=== PATIENT | female | born 1950 | race Caucasian/White ===

== ENCOUNTER → 2020-04-26 09:58 | Outpatient (BNVA) | payer MEDICARE, MEDICAID, SELFPAY | PROVIDERS: PCP Internal Medicine; Referring Provider Internal Medicine; Visit Provider Obstetrics & Gynecology | DX: Z76.89 Persons encountering health services in other specified circumstances (principal) ==

== ENCOUNTER 2020-04-28 10:47 | Outpatient (REF) | payer MEDICARE, MEDICAID, SELFPAY ==
--- NOTE | 2020-04-28 10:51 | MM_ITS ---
EXAMINATION: BONE DENSITOMETRY CLINICAL INDICATION: Other specified personal risk factors, not elsewhere classified. COMPARISON: None (current study represents initial baseline exam). TECHNIQUE: Using a [employer] DXA System (software version: 13.1) manufactured by [employer], dual-energy x-ray absorptiometry was performed of the lumbar spine and left hip. The images are of good technical quality. Summary results are attached. FINDINGS: AP SPINE L1-L4: BMD 0.993 g/cm2, Z-score -0.8, T-score -1.6, osteopenia. LEFT FEMUR, NECK: BMD 1.057 g/cm2, Z-score 1.2, T-score 0.1, normal. LEFT FEMUR, TOTAL: BMD 1.201 g/cm2, Z-score 2.3, T-score 1.5, normal. IDENTIFIED RISK FACTORS: Osteoporosis. Height loss. Menopause. Hysterectomy. Bilateral oophorectomy. HISTORY OF FRACTURE: None listed. MEDICATIONS: Vitamin D. MM/XR DEXA axial skeleton IMPRESSION: 1. DIAGNOSIS: Osteopenia based on the lowest T-score value of -1.6 in the lumbar spine applying World Health Organization criteria. 2. 10-YEAR FRACTURE RISK PREDICTION, FRAX: Major osteoporotic fracture (clinical spine, forearm, hip or shoulder) 3.3%. Hip fracture 0.1%. 3. Treatment Recommendations: NOF guidelines recommend consideration for treatment in postmenopausal women and men age 50 and older presenting with the following: -A hip or vertebral (clinical or morphometric) fracture. -T-score less than or equal to -2.5 at the femoral neck or spine after appropriate evaluation to exclude secondary causes. -Low bone mass at the hip or spine and a 10-year fracture probability by FRAX of greater than or equal to 3% for hip fracture or greater than or equal to 20% for major osteoporotic fracture based on the [place] adapted WHO algorithm. 4. Other Recommendations: All treatment decisions require clinical judgment and consideration of individual patient factors, including patient preferences, comorbidities, previous drug use, risk factors not captured in the FRAX model (e.g. frailty, falls, vitamin D deficiency, increased bone turnover, interval significant decline in bone density) and possible under or overestimation of fracture risk by FRAX. Additional medical evaluation for secondary cause of low bone mineral density may be appropriate. FUTURE SCAN RECOMMENDATION: People with diagnosed cases of osteoporosis or at high risk for fracture should have regular bone mineral density tests. For patients eligible for Medicare, routine testing is allowed once every 2 years. The testing frequency can be increased to one year for patients who have rapidly progressing disease, those who are receiving or discontinuing medical therapy to restore bone mass, or have additional risk factors.
== END 2020-04-28 10:48 | disposition home or self-care (01) ==
LOC: HO.MAMMO 10:47
PROVIDERS: PCP Internal Medicine; Visit Provider Obstetrics & Gynecology
DX: Z13.820 Encounter for screening for osteoporosis (principal); Z78.0 Asymptomatic menopausal state; R29.890 Loss of height; Z90.710 Acquired absence of both cervix and uterus; Z90.722 Acquired absence of ovaries, bilateral; Z79.899 Other long term (current) drug therapy
CPT/HCPCS: 77080

== ENCOUNTER → 2020-05-10 10:35 | Outpatient (BNVA) | payer MEDICARE, MEDICAID, SELFPAY | PROVIDERS: Visit Provider Obstetrics & Gynecology | DX: M85.80 Other specified disorders of bone density and structure, unspecified site (principal) | CPT/HCPCS: 99212; Q3014 ==

== ENCOUNTER 2020-09-04 09:52 | Outpatient (REF) | payer MEDICARE, MEDICAID, SELFPAY ==
[2020-09-04 11:14] LABS: MANUAL DIFF FLAG NO
[2020-09-04 11:43] LABS: Basophils Percent Auto 0.5 % (0-2); Eosinophils Absolute Auto 0.2 X10*3/uL (0.0-0.4); Eosinophils Percent Auto 2.9 % (0-4); Hematocrit 39.5 % (37-47); Hemoglobin 12.8 g/dl (12.0-16.0); Imm Gran Abs Auto 0.01 X10*3/uL (0.00-0.03); Imm Gran Pct Auto 0.2 % (0.0-0.4); Lymphocytes Absolute Auto 2.6 X10*3/uL (1.2-4.9); Lymphocytes Percent Auto 45.4 % (20-40); Mean Corpuscular HGB Conc 32.4 g/dl (31.0-35.0); Mean Corpuscular Hemoglobin 28.3 pg (27.0-33.0); Mean Corpuscular Volume 87.4 fL (80-98); Mean Platelet Volume 9.1 fL (9.4-12.3); Monocytes Absolute Auto 0.4 X10*3/uL (0.1-1.2); Monocytes Percent Auto 6.4 % (2-11); Neutrophils Absolute Auto 2.6 X10*3/uL (2.0-8.3); Neutrophils Percent Auto 44.6 % (45-73); Platelet Count 340 X10*3/uL (160-400); Red Blood Count 4.52 X10*6/uL (4.20-5.50); Red Cell Distribution Width 13.9 % (11.0-16.0); White Blood Count 5.8 X10*3/uL (4.8-10.8)
[2020-09-04 11:45] LABS: Estimated Average Glucose 126 mg/dL
[2020-09-04 12:18] LABS: Alanine Aminotransferase 10 U/L (0-31); Alkaline Phosphatase 77 U/L (39-117); Anion Gap 11 (12-20); Aspartate Amino Transferase 13 U/L (5-31); Bilirubin Total 0.6 mg/dL (0.0-1.0); Blood Urea Nitrogen 17 mg/dL (9-16); Calcium 9.1 mg/dL (8.4-10.2); Carbon Dioxide 32 mmol/L (22-29); Chloride 103 mmol/L (96-108); Cholesterol 191 mg/dL; Estimated Glomerular Filt Rate > 60; Glucose Fasting 66 mg/dL (60-99); HDL Cholesterol 57 mg/dL; LDL Cholesterol Calculated 109 mg/dl; Potassium 4.3 mmol/L (3.3-5.1); Sodium 142 mmol/L (135-145); Triglycerides 128 mg/dL
[2020-09-04 12:34] LABS: Creatinine Urine 85.85 mg/dL; Microalbum/Creatinine Ratio Ur 13.9 ug/mg cr
== END 2020-09-04 09:53 | disposition home or self-care (01) ==
LOC: HO.HMGCLDS 09:52
PROVIDERS: PCP Internal Medicine; Visit Provider Internal Medicine
DX: E78.5 Hyperlipidemia, unspecified (principal); E11.9 Type 2 diabetes mellitus without complications
CPT/HCPCS: 36415; 80053; 80061; 82043; 83036; 85025

== ENCOUNTER 2021-03-13 10:21 | Outpatient (REF) | payer MEDICARE, MEDICAID, SELFPAY ==
[2021-03-13 12:40] LABS: Alanine Aminotransferase 13 U/L (0-31); Albumin Level 3.9 g/dL (3.5-5.0); Alkaline Phosphatase 83 U/L (39-117); Anion Gap 12 (12-20); Aspartate Amino Transferase 13 U/L (5-31); Bilirubin Total 0.4 mg/dL (0.0-1.0); Blood Urea Nitrogen 15 mg/dL (9-16); Calcium 9.6 mg/dL (8.4-10.2); Carbon Dioxide 29 mmol/L (22-29); Chloride 104 mmol/L (96-108); Estimated Glomerular Filt Rate > 60; Glucose Fasting 104 mg/dL (60-99); Potassium 4.6 mmol/L (3.3-5.1); Sodium 140 mmol/L (135-145); Total Protein 6.9 g/dL (6.5-8.0)
[2021-03-13 13:25] LABS: Estimated Average Glucose 137 mg/dL; Hemoglobin A1c % 6.4 %
[2021-03-13 14:50] LABS: Creatinine Urine 72.16 mg/dL; Microalbum/Creatinine Ratio Ur 6.9 ug/mg cr
== END 2021-03-13 10:22 | disposition home or self-care (01) ==
LOC: HO.HMGCLDS 10:21
PROVIDERS: PCP Internal Medicine; Visit Provider Internal Medicine
DX: E11.9 Type 2 diabetes mellitus without complications (principal); E66.9 Obesity, unspecified; E78.5 Hyperlipidemia, unspecified
CPT/HCPCS: 36415; 80053; 82043; 83036

== ENCOUNTER 2021-04-05 11:00 | Outpatient (RCR) | payer MEDICARE, MEDICAID, SELFPAY ==
--- NOTE | 2021-02-01 10:04 | MHC.PT.EP ---
[facility] [place] [facility] [place] Office [address] Danie Guzman [address] [phone] F: [phone] F: [phone] F: [phone] F: [phone] Physical Therapy Plan of Care Date of Evaluation: Date of Surgery: Diagnosis: B LE weakness. Assessment: Pt is a 70 y/o female referred to PT for eval and treat of B LE weakness who presents with B LE weakness and gait abnormality resulting in decreased tolerance for ambulating and standing for duration, performing squatting activities and HH chores, as well as negotiating stairs and curbs secondary to decreased B LE strength, gait abnormality, L > R knee pain, increased body weight, and sedentary lifestyle. Pt is deemed an appropriate candidate to receive skilled PT in order to address her physical limitations to improve her functional ability. Frequency and Duration: The patient will be seen 2 x / wk x 5 wks. Short Term Goals: Initiate HEP. Retirement Goals: I with HEP. improve B knee extension MMT to : 4+/5. 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 Pt will b able to walk 2 blocks with at most a little bit of difficulty; initial quite a bit of difficulty. Treatment Plan: Modalities to reduce pain, spasms and effusion. Manual therapy to restore motion and function. Therapeutic exercise to improve strength and flexibility. Neuromuscular re-education for posture and balance. Therapeutic activities to return to functional activities of daily living. Electronically signed by: Kanu Harmon PT. Please sign and return to therapist. Thank you for your referral.
--- NOTE | 2021-04-05 12:07 | MHC.PT.DC ---
[facility] [place] [facility] [place] Office [place] Office [address] Danie Guzman [address] [phone] F: [phone] F: [phone] F: [phone] F: [phone] Physical Therapy Discharge Report Diagnosis: B LE weakness. Date of Surgery: Date of Evaluation: 01/30/21 Date of Discharge: Treatments to Date: 9 Cancellations to Date: No Shows to Date: 1 Discharge Status: Discharge Summary: 04/05: Pt was highly motivated to participate in her therapy today - pt required minimal cues to perform her ther/ex. this suggest that she had bee following her HEP. By the end of her POC, pt has managed to achieve few of her goals however, pt reports that she is functional with her day to day activities. Pt acknowledges that today is her last visit and is in agreement with DC. states that she will continue participating in her HEP once DC. 04/03: pt challenged with standing activities - pt responded with appropriate fatigue and minimal knee pain. pt edu about how to properly climb down stairs. pt acknowledged that next visit is her last and reports that she is in agreement with DC. reports that she understand her HEP and states that she will perform exercise at home. cont POC for next visit and DC with plans for her to follow HEP once DC. Electronically signed by: Kanu Harmon PT. Please sign and return to therapist. Thank you for your referral.
--- NOTE | 2021-04-05 12:16 | MHC.PT.DC ---
[facility] [place] [facility] [place] Office [place] Office [address] Danie Guzman [address] [phone] F: [phone] F: [phone] F: [phone] F: [phone] Physical Therapy Discharge Report Diagnosis: B LE weakness. Date of Surgery: Date of Evaluation: 01/30/21 Date of Discharge: 04/05/21 Treatments to Date: 10 Cancellations to Date: No Shows to Date: 1 Discharge Status: Improved Function Independent with HEP Discharge Summary: Pt was highly motivated to participate in her therapy today - pt required minimal cues to perform her ther/ex. this suggest that she had bee following her HEP. By the end of her POC, pt has managed to achieve few of her goals however, pt reports that she is functional with her day to day activities. Pt acknowledges that today is her last visit and is in agreement with DC. states that she will continue participating in her HEP once DC. Electronically signed by: Kanu Harmon PT. Please sign and return to therapist. Thank you for your referral.
== END 2021-04-05 12:16 | disposition home or self-care (01) ==
LOC: HO.PTCHIC 11:00
PROVIDERS: PCP Internal Medicine; Visit Provider Internal Medicine
DX: M19.90 Unspecified osteoarthritis, unspecified site (principal)
CPT/HCPCS: 97110; 97161; 97530

== ENCOUNTER 2021-05-01 14:48 | Outpatient (REF) | payer MEDICARE, MEDICAID, SELFPAY ==
[2021-05-02 13:20] LABS: BV Int Neg Control Negative (Negative); BV Int Pos Control Positive (Positive)
== END 2021-05-01 14:49 | disposition home or self-care (01) ==
LOC: HO.LAB 14:48
PROVIDERS: Visit Provider Advanced Practice Midwife
DX: Z01.419 Encounter for gynecological examination (general) (routine) without abnormal findings (principal); L29.2 Pruritus vulvae
CPT/HCPCS: 87480; 87510; 87660

== ENCOUNTER 2021-11-14 10:31 | Outpatient (REF) | payer MEDICARE, MEDICAID, SELFPAY ==
[2021-11-14 11:50] LABS: Hematocrit 39.4 % (37.0-47.0); Hemoglobin 12.4 g/dl (12.0-16.0); Mean Corpuscular HGB Conc 31.5 g/dl (31.0-35.0); Mean Corpuscular Hemoglobin 27.2 pg (27.0-33.0); Mean Corpuscular Volume 86.4 fL (80.0-98.0); Mean Platelet Volume 8.9 fL (9.4-12.3); Platelet Count 312 X10*3/uL (160-400); Red Blood Count 4.56 X10*6/uL (4.20-5.50); Red Cell Distribution Width 14.9 % (11.0-16.0); White Blood Count 5.6 X10*3/uL (4.8-10.8)
[2021-11-14 11:58] LABS: Estimated Average Glucose 146 mg/dL; Hemoglobin A1c % 6.7 %
[2021-11-14 12:30] LABS: Alanine Aminotransferase 11 U/L (0-31); Albumin Level 3.8 g/dL (3.5-5.0); Alkaline Phosphatase 90 U/L (39-117); Anion Gap 11 (12-20); Aspartate Amino Transferase 12 U/L (5-31); Bilirubin Total 0.4 mg/dL (0.0-1.0); Blood Urea Nitrogen 16 mg/dL (9-16); Calcium 9.7 mg/dL (8.4-10.2); Carbon Dioxide 32 mmol/L (22-29); Chloride 102 mmol/L (96-108); Cholesterol 208 mg/dL; Estimated Glomerular Filt Rate > 60; Glucose Fasting 123 mg/dL (60-99); HDL Cholesterol 57 mg/dL; LDL Cholesterol Calculated 123 mg/dl; Potassium 4.5 mmol/L (3.3-5.1); Sodium 140 mmol/L (135-145); Total Protein 7.2 g/dL (6.5-8.0); Triglycerides 143 mg/dL
[2021-11-14 14:25] LABS: Creatinine Urine 18.43 mg/dL; Microalbumin Urine < 5.0 mg/L
== END 2021-11-14 10:32 | disposition home or self-care (01) ==
LOC: HO.HMGCLDS 10:31
PROVIDERS: PCP Internal Medicine; Visit Provider Internal Medicine
DX: E11.9 Type 2 diabetes mellitus without complications (principal); E78.5 Hyperlipidemia, unspecified; I10 Essential (primary) hypertension
CPT/HCPCS: 36415; 80053; 80061; 82043; 83036; 85027

== ENCOUNTER 2022-03-01 08:29 | Day surgery (SDC) | payer OTHER, SELFPAY ==
[2022-03-01] VITALS (8 sets, daily range): BP systolic 123–186; BP diastolic 56–86; PULSE 87–102; RESP 17–20; TEMP 36.2–36.3; O2SAT 92–100; BMI 44.4
[2022-03-01 09:08] LABS: Glucose, Whole Blood 101 mg/dL (60-115)
--- NOTE | 2022-03-01 09:11 | P.CONAN_ITS ---
HPI - Anesthesia Eval Consult details Narrative: 71 F for EGD HTN , DM, Asthma, MARCELLUS on CPAP Fall 1 week ago , no LOC , saw her orthopedics , was told she is just sore no fractures . Discussed with Dr Pedraza , he would like to proceed . [facility] Active Problems Active Problems: All Active Problems (Updated 11/19/21 @ 13:14 by Josefa Giordano MD) Cataract (Acute) Acute bronchitis (Acute) HTN (hypertension) (Acute) Vulvar itching (Acute) Encounter for annual routine gynecological examination (Acute) Lower extremity weakness (Acute) Annual physical exam (Acute) Osteopenia (Acute) Mammogram normal (Acute) Obesity (Acute) Diabetes (Acute) Hyperlipidemia (Acute) Past Medical History Medical History Annual physical exam Cataract Diabetes Diabetic eye exam Endometrial cancer Gastritis HTN (hypertension) Hyperlipidemia Lower extremity weakness Mammogram normal Obesity Osteoarthritis Family History Family History Father No problems noted. Mother No problems noted. Mother No problems noted. Sister Breast cancer Daughter No problems noted. Daughter No problems noted. Family history of problems with anesthesia: No Surgical History Surgical History H/O colonoscopy History of carpal tunnel surgery History of section History of shoulder surgery History of total abdominal hysterectomy and bilateral salpingo-oophorectomy History of tubal ligation Hx of cholecystectomy S/P LIZET-BSO History of Problems with Anesthesia: No Social History Social History Housing: House Alcohol intake: never Patient Tobacco Use Status: Former Tobacco user Quit Date: many decades ago e-Cigarette/Vaping Use: Never Used Second Hand Smoke Exposure: No Use of substances other than those prescribed or required for medical reasons: No Are you DNR?: No Advance Directives: No Advance Directives Information Provided: Yes service: No Current occupational status: retired Current occupational exposures/hazards: No Sexual orientation: Straight/Heterosexual Gender identity: Female Cognitive needs: No Hearing needs: No Vision needs: No Meds Allergies Allergy/AdvReac Type Severity Reaction Status Date / Time almond Allergy Unknown itchy Verified 11/19/21 12:48 throat and eyes SOB apple Allergy Unknown itchy Verified 11/19/21 12:48 throat eyes Active Medications: Current Medications Lactated Ringer's (Lr) 1,000 mls @ 100 mls/hr IVCONT .Q10H [facility] Home Medications Medication Instructions Recorded Confirmed Last Taken Type acetaminophen 500 mg tablet mg PO 04/18/20 11/19/21 Unknown History estradiol 0.01% (0.1 mg/gram) 1 g vaginal 04/18/20 11/19/21 Unknown History vaginal cream gabapentin 100 mg capsule 200 mg PO BID 06/05/21 11/19/21 Unknown History Exam Exam Date and Time: March 01, 2022 0911 Height,Weight and Vital Signs: Height 4 ft 11 in Weight 99.79 kg Last Vital Signs Temp 97.4 F 03/01/22 09:04 Pulse 97 03/01/22 09:04 Resp 18 03/01/22 09:04 BP 186/86 H 03/01/22 09:04 Pulse Ox 95 03/01/22 09:04 O2 Del Method 03/01/22 09:04 Pertinent Lab Results Pertinent Lab Results: Laboratory Tests 03/01/22 09:02 POC Glucose 101 Airway Mallampati Class: III TM Dist: <=3cm Neck ROM: Full Denture: Upper Loose/Missing/Broken Teeth: Yes (poor dentition ) Heart: S1,S2 Lungs: distant breath sounds b/l Assessment and Plan Assessment Anesthesia Assessment: Anesthesia Plan Discussed and Chart Reviewed Final Anesthetic Review Family History of Problems with Anesthesia: No History of Problems with Anesthesia: No NPO: Yes ASA Class: III Final Preanesthetic Review: Meds/Allgs Chart Reviewed, Consent Obtained/Reviewed and Anes Risks/Benef Reviewed Patient Risk: High Procedure Risk: Intermediate Anesthetic Plan Anesthetic Plan: MAC: (GA backup ) Disposition: Standard PACU
[2022-03-01] MEDS: Lactated Ringers 1,000 ML 100 ML IVCONT (09:23)
--- NOTE | 2022-03-01 10:19 | PM.OP ---
Brief Operative Note Date of Service: 03/01/22 Pre-op diagnosis: GERD, History of Silva's Post-op diagnosis: other (Hiatal Hernia, Same) Procedure: EGD with biopsies Surgeon: Jacob Pedraza Anesthesia: GETA and MAC Was an Supervisor Chassis Assembly used for this Procedure?: No Estimated blood loss (mL): 2.0 Pathology: other (A. EG Junction at 35cm) Condition: stable Disposition: PACU
--- NOTE | 2022-03-01 21:46 | OP_ITS ---
SURGEON: Jacob Pedraza MD INDICATIONS: The patient presents for evaluation of gastroesophageal reflux and history of Silva's esophagus. Full consent has been obtained from her for this, including risks of bleeding and perforation. PREOPERATIVE DIAGNOSIS: POSTOPERATIVE DIAGNOSIS: PROCEDURE PERFORMED: Esophagogastroduodenoscopy with biopsies. ESTIMATED BLOOD LOSS: COMPLICATIONS: ANESTHESIA: Monitored anesthesia care with conversion to general anesthesia with endotracheal intubation. ASSISTANTS: SPECIMENS: PREOPERATIVE DIAGNOSES: 1. Gastroesophageal reflux. 2. History of Silva's esophagus. POSTOPERATIVE DIAGNOSES: 1. Gastroesophageal reflux. 2. History of Silva's esophagus. 3. Hiatal hernia. DESCRIPTION OF PROCEDURE: The patient was placed in the left lateral decubitus position. The Olympus video gastroscope was passed into the posterior oropharynx and upper esophagus under direct vision. The scope was passed slowly to the distal esophagus. The gastroesophageal junction appeared at 35 cm. There was some minimal irregularity, but no erosions and no ulceration. There was no mass. The scope entered the stomach. There was a small hiatal hernia. The scope was advanced to the pylorus. The duodenum was cannulated to the descending portion. The duodenum including the bulb appeared normal without mass or ulceration. The scope was withdrawn back to the stomach where the gastric antrum and body appeared normal with good peristalsis. The scope was retroflexed visualizing the proximal stomach carefully, which appeared normal, without any sign of mass or ulceration. The scope was straightened out and withdrawn back to the esophagus. Biopsies were obtained at the EG junction at 35 cm. Again, there was no sign of any esophagitis nor any definitive evidence of Silva's mucosa. Proximal to this, the esophageal mucosa appeared normal. The scope was withdrawn from the patient. Of note, at that point, the patient did require intubation to maintain respiratory support given her underlying history of sleep apnea. She remained otherwise stable until extubation and return to the recovery area. IMPRESSION: 1. Hiatal hernia. 2. Gastroesophageal reflux. 3. History of Silva's esophagus. PLAN: The results of biopsies will be checked. She will continue her current regimen of omeprazole. She was advised not to use any aspirin or NSAIDs for 1 week. This has all been discussed with her daughter, including the issue of her need for intubation at the end of the procedure. MD EKTA Parrish/AGNIESZKA / [phone] WANDY
== END 2022-03-01 12:25 | disposition home or self-care (01) ==
PROVIDERS: PCP Internal Medicine; Visit Provider Internal Medicine
PROC: 0DJ08ZZ Inspection of Upper Intestinal Tract, Via Natural or Artificial Opening Endoscopic (ICD-10-PCS; CPT 43235; principal; 2022-03-01 09:30)
DX: K21.9 Gastro-esophageal reflux disease without esophagitis (principal); K44.9 Diaphragmatic hernia without obstruction or gangrene; Z87.19 Personal history of other diseases of the digestive system; I10 Essential (primary) hypertension; E78.5 Hyperlipidemia, unspecified; G47.33 Obstructive sleep apnea (adult) (pediatric); E66.9 Obesity, unspecified; Z68.42 Body mass index [BMI] 45.0-49.9, adult; M79.7 Fibromyalgia; E11.9 Type 2 diabetes mellitus without complications; Z79.4 Long term (current) use of insulin; Z79.899 Other long term (current) drug therapy; Z99.89 Dependence on other enabling machines and devices; Z90.710 Acquired absence of both cervix and uterus; Z90.49 Acquired absence of other specified parts of digestive tract; Z87.891 Personal history of nicotine dependence
CPT/HCPCS: 43239; 82947; 88305; J2250; J3010

== ENCOUNTER → 2022-03-27 08:58 | Outpatient (REF) | payer OTHER, SELFPAY | LOC: HO.SL 08:58 | PROVIDERS: PCP Internal Medicine; Visit Provider Internal Medicine | DX: G47.33 Obstructive sleep apnea (adult) (pediatric) (principal) | CPT/HCPCS: 95806 ==

== ENCOUNTER 2022-06-27 08:51 | Outpatient (REF) | payer OTHER, SELFPAY ==
[2022-06-28 12:36] LABS: BV Int Neg Control Negative (Negative); BV Int Pos Control Positive (Positive)
== END 2022-06-27 08:52 | disposition home or self-care (01) ==
LOC: HO.LNP 08:51
PROVIDERS: PCP Internal Medicine; Visit Provider Advanced Practice Midwife
DX: N89.8 Other specified noninflammatory disorders of vagina (principal)
CPT/HCPCS: 87480; 87510; 87660

== ENCOUNTER 2022-08-30 11:36 | Outpatient (REF) | payer OTHER, SELFPAY ==
[2022-08-30 14:25] LABS: Alanine Aminotransferase 18 U/L (0-31); Albumin Level 3.7 g/dL (3.5-5.0); Alkaline Phosphatase 88 U/L (39-117); Anion Gap 12 (12-20); Aspartate Amino Transferase 18 U/L (5-31); Bilirubin Total 0.5 mg/dL (0.0-1.0); Blood Urea Nitrogen 16 mg/dL (9-16); Calcium 9.4 mg/dL (8.4-10.2); Carbon Dioxide 35 mmol/L (22-29); Chloride 100 mmol/L (96-108); Cholesterol 180 mg/dL; Estimated Glomerular Filt Rate > 60; Glucose Fasting 89 mg/dL (60-99); HDL Cholesterol 60 mg/dL; LDL Cholesterol Calculated 96 mg/dl; Potassium 4.7 mmol/L (3.3-5.1); Sodium 142 mmol/L (135-145); Total Protein 6.8 g/dL (6.5-8.0); Triglycerides 122 mg/dL
[2022-08-30 14:42] LABS: TSH reflex Free T4 2.13 uIU/mL (0.32-4.0)
[2022-08-30 16:04] LABS: Estimated Average Glucose 146 mg/dL; Hemoglobin A1c % 6.7 %
[2022-08-30 16:06] LABS: Creatinine Urine 89.97 mg/dL; Microalbum/Creatinine Ratio Ur 8.8 ug/mg cr
== END 2022-08-30 11:37 | disposition home or self-care (01) ==
LOC: HO.HMGCLDS 11:36
PROVIDERS: PCP Internal Medicine; Visit Provider Internal Medicine
DX: E11.9 Type 2 diabetes mellitus without complications (principal); I10 Essential (primary) hypertension; E78.5 Hyperlipidemia, unspecified
CPT/HCPCS: 36415; 80053; 80061; 82043; 83036; 84443

== ENCOUNTER 2022-12-11 10:23 | Outpatient (REF) | payer OTHER, SELFPAY ==
[2022-12-11 11:11] LABS: MANUAL DIFF FLAG NO
[2022-12-11 11:29] LABS: Basophils Absolute Auto 0.1 X10*3/uL (0.0-0.2); Basophils Percent Auto 0.9 % (0-2); Eosinophils Absolute Auto 0.1 X10*3/uL (0.0-0.4); Eosinophils Percent Auto 2.1 % (0-4); Hematocrit 41.1 % (37.0-47.0); Hemoglobin 13.4 g/dl (12.0-16.0); Imm Gran Abs Auto 0.01 X10*3/uL (0.00-0.03); Imm Gran Pct Auto 0.2 % (0.0-0.4); Lymphocytes Absolute Auto 2.2 X10*3/uL (1.2-4.9); Lymphocytes Percent Auto 39.5 % (20-40); Mean Corpuscular HGB Conc 32.6 g/dl (31.0-35.0); Mean Corpuscular Hemoglobin 27.5 pg (27.0-33.0); Mean Corpuscular Volume 84.4 fL (80.0-98.0); Mean Platelet Volume 9.1 fL (9.4-12.3); Monocytes Absolute Auto 0.3 X10*3/uL (0.1-1.2); Monocytes Percent Auto 4.8 % (2-11); Neutrophils Absolute Auto 2.9 x10*3/uL (2.0-8.3); Neutrophils Percent Auto 52.5 % (45-73); Platelet Count 272 X10*3/uL (160-400); Red Blood Count 4.87 X10*6/uL (4.20-5.50); Red Cell Distribution Width 14.5 % (11.0-16.0); White Blood Count 5.6 X10*3/uL (4.8-10.8)
[2022-12-11 11:48] LABS: Estimated Average Glucose 140 mg/dL; Hemoglobin A1c % 6.5 %
[2022-12-11 11:52] LABS: Alanine Aminotransferase 15 U/L (0-31); Albumin Level 3.8 g/dL (3.5-5.0); Alkaline Phosphatase 78 U/L (39-117); Anion Gap 12 (12-20); Aspartate Amino Transferase 15 U/L (5-31); Bilirubin Total 0.3 mg/dL (0.0-1.0); Blood Urea Nitrogen 22 mg/dL (9-16); Calcium 9.5 mg/dL (8.4-10.2); Carbon Dioxide 28 mmol/L (22-29); Chloride 104 mmol/L (96-108); Cholesterol 162 mg/dL; Estimated Glomerular Filt Rate > 60; Glucose Fasting 149 mg/dL (60-99); HDL Cholesterol 47 mg/dL; LDL Cholesterol Calculated 68 mg/dl; Potassium 4.4 mmol/L (3.3-5.1); Sodium 140 mmol/L (135-145); Total Protein 6.8 g/dL (6.5-8.0); Triglycerides 239 mg/dL
[2022-12-11 12:07] LABS: Creatinine Urine 170.14 mg/dL; Microalbum/Creatinine Ratio Ur 11.7 ug/mg cr
== END 2022-12-11 10:24 | disposition home or self-care (01) ==
LOC: HO.HMGCLDS 10:23
PROVIDERS: PCP Internal Medicine; Visit Provider Internal Medicine
DX: Z00.00 Encounter for general adult medical examination without abnormal findings (principal); E11.9 Type 2 diabetes mellitus without complications; E78.5 Hyperlipidemia, unspecified; I10 Essential (primary) hypertension
CPT/HCPCS: 36415; 80053; 80061; 82043; 83036; 85025

== ENCOUNTER 2023-03-05 08:07 | Outpatient (REF) | payer OTHER, SELFPAY ==
[2023-03-05 11:43] LABS: MANUAL DIFF FLAG NO
[2023-03-05 11:51] LABS: Basophils Percent Auto 0.8 % (0-2); Eosinophils Absolute Auto 0.2 X10*3/uL (0.0-0.4); Eosinophils Percent Auto 2.9 % (0-4); Hematocrit 40.6 % (37.0-47.0); Hemoglobin 12.8 g/dl (12.0-16.0); Imm Gran Abs Auto 0.01 X10*3/uL (0.00-0.03); Imm Gran Pct Auto 0.2 % (0.0-0.4); Lymphocytes Absolute Auto 2.3 X10*3/uL (1.2-4.9); Lymphocytes Percent Auto 43.7 % (20-40); Mean Corpuscular HGB Conc 31.5 g/dl (31.0-35.0); Mean Corpuscular Hemoglobin 27.4 pg (27.0-33.0); Mean Corpuscular Volume 86.8 fL (80.0-98.0); Mean Platelet Volume 8.9 fL (9.4-12.3); Monocytes Absolute Auto 0.5 X10*3/uL (0.1-1.2); Monocytes Percent Auto 8.9 % (2-11); Neutrophils Absolute Auto 2.3 x10*3/uL (2.0-8.3); Neutrophils Percent Auto 43.5 % (45-73); Platelet Count 314 X10*3/uL (160-400); Red Blood Count 4.68 X10*6/uL (4.20-5.50); Red Cell Distribution Width 15.1 % (11.0-16.0); White Blood Count 5.2 X10*3/uL (4.8-10.8)
[2023-03-05 11:56] LABS: Estimated Average Glucose 137 mg/dL; Hemoglobin A1c % 6.4 % (<6.0)
[2023-03-05 12:10] LABS: Alanine Aminotransferase 13 U/L (0-31); Albumin Level 3.7 g/dL (3.5-5.0); Alkaline Phosphatase 74 U/L (39-117); Anion Gap 13 (12-20); Aspartate Amino Transferase 17 U/L (5-31); Bilirubin Total 0.3 mg/dL (0.0-1.0); Blood Urea Nitrogen 13 mg/dL (9-16); Calcium 9.2 mg/dL (8.4-10.2); Carbon Dioxide 29 mmol/L (22-29); Chloride 102 mmol/L (96-108); Cholesterol 183 mg/dL (<200); Estimated Glomerular Filt Rate > 60; Glucose Fasting 126 mg/dL (60-99); HDL Cholesterol 51 mg/dL (>40); LDL Cholesterol Calculated 93 mg/dL (<100); Potassium 4.2 mmol/L (3.3-5.1); Sodium 140 mmol/L (135-145); Total Protein 6.9 g/dL (6.5-8.0); Triglycerides 197 mg/dL (<150)
[2023-03-05 12:32] LABS: Creatinine Urine 87.41 mg/dL; Microalbumin Urine < 5.0 mg/L
== END 2023-03-05 08:08 | disposition home or self-care (01) ==
LOC: HO.HMGCLDS 08:07
PROVIDERS: PCP Internal Medicine; Visit Provider Internal Medicine
DX: Z00.00 Encounter for general adult medical examination without abnormal findings (principal); E11.9 Type 2 diabetes mellitus without complications; E78.5 Hyperlipidemia, unspecified; I10 Essential (primary) hypertension
CPT/HCPCS: 36415; 80053; 80061; 82043; 83036; 85025

== ENCOUNTER 2023-03-18 11:13 | Outpatient (AMB) | payer OTHER, SELFPAY ==
[2023-03-18 11:18] VITALS: BP 110/64; PULSE 90; O2SAT 95; BMI 46.4
--- NOTE | 2023-03-18 11:18 | MHC.PC.OV ---
Vital Signs 03/18/23 11:18 Height 4 ft 11 in Weight 230 lb BMI 46.4 BP 110/64 Blood Pressure Location Rt brachial Position Sitting Pulse 90 Pulse Source Pulse Oximeter Pulse Oximetry (%) 95 Oxygen Delivery Method Room Air Intake Visit Reasons: 3 Month follow up Intake Note: Pt is here today for 3 months follow up on labs. Allergies almond Allergy (Unknown, Verified 03/18/23 11:21) itchy throat and eyes SOB apple Allergy (Unknown, Verified 03/18/23 11:21) itchy throat eyes Medication List - Last Reconciled 03/18/23 by Josefa Giordano MD acetaminophen mg PO acetaminophen ER (Tylenol 8 Hour) 650 mg PO Q8H albuterol sulfate 90 mcg/actuation 1 inh inhalation Q4-6H PRN 10 days [Bed trasfer bar Bed trasfer bar] calcium carbonate (Calcium) 1,200 mg (2 x 600 mg calcium (1,500 mg)) PO DAILY cetirizine 10 mg PO DAILY cholecalciferol (vitamin D3) 50 mcg PO DAILY dicyclomine 10 mg PO TID docusate sodium (Colace) 100 mg PO BID dulaglutide (Trulicity) 3 mg (0.5 mL) subcut QWEEK flash glucose sensor (FreeStyle Bobby 2 Sensor kit) Use to monitor ongoing blood sugar furosemide (Lasix) 20 mg PO Q OTHER DAY gabapentin 200 mg PO BID gabapentin 400 mg PO BID insulin glargine 64 units (0.64 mL) subcut BEDTIME insulin lispro (Humalog KwikPen (U-100) Insulin) Inject 6-10 units TID, before each meal, according to sliding scale; lorazepam 0.5 mg PO DAILY PRN metformin ER 1,000 mg (2 x 500 mg) PO BID metronidazole 0.75%(37.5mg/5gram) (Metrogel Vaginal) 1 appful vaginal BEDTIME 5 days olmesartan 5 mg PO DAILY omeprazole 20 mg PO BID [Over the toilet versa frame Over the toilet versa frame] rosuvastatin (Crestor) 20 mg PO DAILY [Tub transfer bar Tub transfer bar] Tobacco use date assessed: 03/18/23 Dental Screening Dental Screen Date: 03/18/23 Did you have a dental visit in the last 12 months?: Yes Did you have a dental problem in the last 6 months where you did not have access to dental care?: No Was dental information given to patient?: Patient has dentist HPI 3 Month follow up HPI Details Pt presents for DM, HTN, hyperlipid, stable on meds. Patient reports intermittent epigastric abdominal discomfort bloating and occasionally nausea. She had negative EGD and colonoscopy in September. Patient denies constipation or diarrhea hematochezia melena. Patient reports fasting blood glucose lower occasionally in 70s. [facility]LY [facility] Medical History Annual physical exam Cataract Diabetes Diabetic eye exam Endometrial cancer Gastritis HTN (hypertension) Hyperlipidemia Lower extremity weakness Mammogram normal Obesity Osteoarthritis Surgical History H/O colonoscopy History of carpal tunnel surgery History of section History of shoulder surgery History of total abdominal hysterectomy and bilateral salpingo-oophorectomy History of tubal ligation Hx of cholecystectomy S/P LIZET-BSO Family History Father No problems noted. Mother No problems noted. Mother No problems noted. Sister Breast cancer Daughter No problems noted. Daughter No problems noted. Social History Housing: House Alcohol intake: never Patient Tobacco Use Status: Former Tobacco user Quit Date: many decades ago e-Cigarette/Vaping Use: Never Used Second Hand Smoke Exposure: No service: No Current occupational status: retired Current occupational exposures/hazards: No Sexual orientation: Straight/Heterosexual Gender identity: Female Cognitive needs: No Hearing needs: No Vision needs: Yes Questionnaire Thrive Questionnaire Date Thrive assessed: 09/12/22 TYREL-7 AMB Questionnaire TYREL-7 Date TYREL - 7 assessed: 09/12/22 Source: Developed by Drs. Jacob Ashton, Brook Sheets, Pasquale Ren and colleagues, with an educational tania from [employer]. Review of Systems Const All systems reviewed & are unremarkable except as noted in HPI and below Reports no additional complaints Eyes Reports no additional complaints ENT Reports no additional complaints Card Reports no additional complaints Resp Reports no additional complaints GI Reports no additional complaints Reports no additional complaints Physical exam (Primary Care) Vital Signs: Last Vital Signs Pulse 90 03/18/23 11:18 BP 110/64 03/18/23 11:18 Pulse Ox 95 03/18/23 11:18 Oxygen Delivery Method Room Air 03/18/23 11:18 BMI result Body Mass Index 46.4 Tobacco/Smoking Status: Tobacco use Status Tobacco use date assessed 03/18/23 03/18/23 11:24 Patient Tobacco Use Status Former Tobacco user 03/18/23 11:24 e-Cigarette/Vaping Use Never Used 03/18/23 11:24 Thrive Assessment: Date of Thrive Assessment Date Thrive assessed 09/12/22 03/18/23 11:24 Const General: no acute distress HENMT Head: Yes normal to inspection Face and sinus: Yes normal facial exam Neck Neck: Yes supple Resp Effort & Inspection: normal respiratory effort Auscultation: clear to auscultation bilaterally Cardio Rhythm: regular rhythm Heart sounds: S1 normal heart sound present and S2 normal heart sound present GI Inspection: Yes obesity Palpation (GI): Soft to palpation and nontender Percussion: Yes normal to percussion Assessment and Plan Assessment & Plan (1) RUQ abdominal pain: Code(s): R10.11 - Right upper quadrant pain Plan: Obtain abdominal ultrasound to rule out gallstones (2) Obesity: Code(s): E66.9 - Obesity, unspecified Plan: Weight loss discussed with the patient (3) Diabetes: Comment: A1c is 6.7 03/28 Code(s): E11.9 - Type 2 diabetes mellitus without complications Plan: A1c is 6.4. ADA diet increase physical activity weight loss discussed with the patient. She was advised to decrease insulin glargine to 54 units and continue Trulicity and metformin. Follow-up in 6 months with a fasting labs before (4) Hyperlipidemia: Comment: Cannot swallow atorvastatin 80 mg pill Code(s): E78.5 - Hyperlipidemia, unspecified Plan: Continue crestor Orders: Orders Hemoglobin A1c 6 Months E11.9 - Type 2 diabetes mellitus without complications, E66.9 - Obesity, unspecified, E78.5 - Hyperlipidemia, unspecified, I10 - Essential (primary) hypertension Lipid Panel 6 Months E11.9 - Type 2 diabetes mellitus without complications, E66.9 - Obesity, unspecified, E78.5 - Hyperlipidemia, unspecified, I10 - Essential (primary) hypertension Microalbumin, Random (w Creat) 6 Months E11.9 - Type 2 diabetes mellitus without complications, E66.9 - Obesity, unspecified, E78.5 - Hyperlipidemia, unspecified, I10 - Essential (primary) hypertension TSH reflex Free T4 6 Months E11.9 - Type 2 diabetes mellitus without complications, E66.9 - Obesity, unspecified, E78.5 - Hyperlipidemia, unspecified, I10 - Essential (primary) hypertension Complete Blood Count Auto Diff 6 Months E11.9 - Type 2 diabetes mellitus without complications, E66.9 - Obesity, unspecified, E78.5 - Hyperlipidemia, unspecified, I10 - Essential (primary) hypertension US abdomen complete Today R10.11 - Right upper quadrant pain Comprehensive [place]. Panel Fast 6 Months E11.9 - Type 2 diabetes mellitus without complications, E66.9 - Obesity, unspecified, E78.5 - Hyperlipidemia, unspecified, I10 - Essential (primary) hypertension Medications: Changed From insulin glargine 64 units (0.64 mL) subcut BEDTIME 60 mL 3RF E11.9 - Type 2 diabetes mellitus without complications To insulin glargine 54 units (0.54 mL) subcut BEDTIME 60 mL 3RF E11.9 - Type 2 diabetes mellitus without complications Coding Level of Care Code Est Pt Level 4 (70839) Diagnoses RUQ abdominal pain R10.11 Obesity E66.9 Diabetes E11.9 Hyperlipidemia E78.5
== END 2023-03-18 11:46 | disposition home or self-care (01) ==
LOC: HO.HMGC 11:13
PROVIDERS: PCP Internal Medicine; Visit Provider Internal Medicine
DX: R10.11 Right upper quadrant pain (principal); E66.9 Obesity, unspecified; E11.9 Type 2 diabetes mellitus without complications; Z68.42 Body mass index [BMI] 45.0-49.9, adult; E78.5 Hyperlipidemia, unspecified
CPT/HCPCS: 99214

== ENCOUNTER 2023-03-28 09:39 | Outpatient (REF) | payer OTHER, SELFPAY ==
--- NOTE | ~2023-03-28 | US_ITS ---
EXAMINATION: US ABDOMEN COMPLETE CLINICAL INFORMATION: Right upper quadrant pain. Evaluate for gallstones. COMPARISON: None available. TECHNIQUE: Real-time imaging of the abdominal viscera. Technically difficult study secondary to bowel gas and body habitus. FINDINGS: PANCREAS: Pancreas is unremarkable except of tail which is obscured by bowel gas ABDOMINAL AORTA: Not dilated INFERIOR VENA CAVA: Visualized portions are normal. LIVER: The liver is normal in size. The liver contour is normal. The liver revealed increased echogenicity due to hepatic steatosis No focal hepatic lesion. There is no intrahepatic biliary duct dilatation seen. GALLBLADDER: Surgically absent. COMMON BILE DUCT: Normal in caliber measuring 1.0 cm in diameter. RIGHT KIDNEY: No hydronephrosis. No renal calculi or focal parenchymal lesions. The kidney measures 11.3 cm in maximum dimension. Right kidney is medially located, mildly rotated LEFT KIDNEY: Normal. No hydronephrosis. No renal calculi or focal parenchymal lesions. The kidney measures 11.1 cm in maximum dimension. SPLEEN: Normal. The spleen measures 9.5 cm in maximum dimension. FREE FLUID: None. US/US abdomen complete IMPRESSION: Hepatic steatosis and limited evaluation of pancreatic tail due to bowel gas distribution
== END 2023-03-28 09:40 | disposition home or self-care (01) ==
LOC: HO.HMGCX 09:39
PROVIDERS: PCP Internal Medicine; Visit Provider Internal Medicine
DX: R10.11 Right upper quadrant pain (principal)
CPT/HCPCS: 76700

== ENCOUNTER 2023-07-03 12:58 | Outpatient (AMB) | payer OTHER, SELFPAY ==
[2023-07-03 13:13] VITALS: BP 124/64; BMI 44.8
--- NOTE | 2023-07-03 13:13 | MHC.OFFVIS ---
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 She is doing well with concerns: Skin rash under her breast in in her groin area. Attempting to eat a healthy diet with calcium and vitamin D and stays active with exercise. Currently sexually active. Denies any vaginal dryness or irritation. Last mammogram; UTD. Colonoscopy is UTD. Denies any family history of breast, ovarian or colon cancer. [facility], [facility] Medical History Cataract HTN (hypertension) Endometrial cancer Lower extremity weakness Annual physical exam Mammogram normal Obesity Hyperlipidemia Osteoarthritis Diabetic eye exam Gastritis Diabetes Surgical History S/P LIZET-BSO H/O colonoscopy Hx of cholecystectomy History of section History of total abdominal hysterectomy and bilateral salpingo-oophorectomy History of carpal tunnel surgery History of shoulder surgery History of tubal ligation Family History Father No problems noted. Mother No problems noted. Mother No problems noted. Sister Breast cancer Daughter No problems noted. Daughter No problems noted. Social History Housing: House Alcohol intake: never Patient Tobacco Use Status: Former Tobacco user Quit Date: many decades ago e-Cigarette/Vaping Use: Never Used Second Hand Smoke Exposure: No service: No Current occupational status: retired Current occupational exposures/hazards: No Sexual orientation: Straight/Heterosexual Gender identity: Female Cognitive needs: No Hearing needs: No Vision needs: Yes Female Reproductive History Menstrual Menopause type: surgical Total pregnancies: 2 Full term: 2 Number of Living Children: 2 Review of Systems Const All systems reviewed & are unremarkable except as noted in HPI and below Reports as per HPI Eyes Reports no additional complaints ENT Reports no additional complaints Card Reports no additional complaints Resp Reports no additional complaints GI Reports as per HPI and Reports no additional complaints Reports as per HPI Musc Reports no additional complaints Skin/Breast Reports as per HPI Neuro Reports no additional complaints Psych Reports no additional complaints Endo Reports no additional complaints Billy/Lymph Reports no additional complaints Aller/Immun Reports no additional complaints Physical Exam Vital Signs: Last Vital Signs BP 124/64 07/03/23 13:13 BMI result Body Mass Index 44.8 Const General: cooperative, healthy appearing, no acute distress, well developed and alert Orientation/consciousness: patient oriented x3 HEENT Head: Yes normal to inspection Eyes General: appearance normal, both eyes and all related structures Neck Neck: Yes normal visual inspection Thyroid: Thyroid normal Chest Chest palpation & inspection: normal inspection of the chest and other (no puckering, dimpling, peau de orange, retraction, discharge, masses) Breast/axilla inspection: normal inspection of the breasts Breast/axilla palpation: normal palpation of the breasts Resp Effort & Inspection: normal respiratory effort GI Other: Obese Inspection: Yes normal to inspection and Yes scar Palpation (GI): Soft to palpation Rectal Exam - Female: deferred General: Yes bladder normal to palpation External Female Exam: normal external appearance and normal appearance of the urethra Speculum Exam - Vagina: normal appearance of the vagina, normal palpation, normal vaginal discharge, vagina atrophic and other (Vaginal cuff no lesions or nodules) Bimanual exam- vagina & uterus: normal bimanual exam, normal palpation and bladder normal to palpation Bimanual Exam- Adnexa, other: no masses Skin Other: Fungal rash under both breast and in in bilateral groin region General skin exam: no rashes or lesions noted Rashes: no rashes Neuro General: patient oriented x3 Cognition (Neuro): normal cognition Extrem General: Yes normal to inspection Psych Attitude: cooperative Thought process: Normal thought process present Assessment & Plan Assessment & Plan (1) Encounter for well woman exam with routine gynecological exam: Code(s): Z01.419 - Encounter for gynecological examination (general) (routine) without abnormal findings (2) Skin rash: Code(s): R21 - Rash and other nonspecific skin eruption Plan Discussed: Current recommendations for pap smears per ASCCP guidelines. Breast awareness, periodic self breast exams and yearly mammogram. Maintain a healthy lifestyle, well balanced diet including Calcium 1,200 mg and Vitamin D 800 IU daily, and routine exercise. Instructions: Clean with warm water, no soaps or scented products. Wear loose, cotton underclothes, avoid tight outer clothing. Air when possible. Complete all medications as prescribed. All of her questions and concerns were addressed to the best of my ability. 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 This note is constructed using voice recognition software. 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 Orders: Orders Bacterial Vaginosis Panel Today N89.8 - Other specified noninflammatory disorders of vagina Medications: New clotrimazole-betamethasone 1-0.05 % apply a thin coat to the area 1 appl topical BID 45 grams 3RF fungal rash 7 days Coding Level of Care Code Est Pt Prev Care >65y(11690) Diagnoses Encounter for well woman exam with routine gynecological exam Z01.419 Skin rash R21
== END 2023-07-03 13:59 | disposition home or self-care (01) ==
PROVIDERS: PCP Internal Medicine; Visit Provider Advanced Practice Midwife
DX: Z01.419 Encounter for gynecological examination (general) (routine) without abnormal findings (principal); R21 Rash and other nonspecific skin eruption
CPT/HCPCS: 99397

== ENCOUNTER 2023-07-03 12:58 | Outpatient (REF) | payer OTHER, SELFPAY ==
[2023-07-04 15:23] LABS: BV Int Neg Control Negative (Negative); BV Int Pos Control Positive (Positive)
== END 2023-07-03 12:59 | disposition home or self-care (01) ==
LOC: HO.LAB 12:58
PROVIDERS: PCP Internal Medicine; Visit Provider Advanced Practice Midwife
DX: Z01.419 Encounter for gynecological examination (general) (routine) without abnormal findings (principal); N89.8 Other specified noninflammatory disorders of vagina; R21 Rash and other nonspecific skin eruption
CPT/HCPCS: 87480; 87510; 87660

== ENCOUNTER 2023-09-09 11:08 | Outpatient (REF) | payer OTHER, SELFPAY ==
[2023-09-09 13:26] LABS: MANUAL DIFF FLAG NO
[2023-09-09 13:33] LABS: Basophils Percent Auto 0.7 % (0-2); Eosinophils Absolute Auto 0.2 X10*3/uL (0.0-0.4); Eosinophils Percent Auto 2.9 % (0-4); Hematocrit 43.7 % (37.0-47.0); Hemoglobin 13.8 g/dl (12.0-16.0); Imm Gran Abs Auto 0.01 X10*3/uL (0.00-0.03); Imm Gran Pct Auto 0.2 % (0.0-0.4); Lymphocytes Absolute Auto 2.5 X10*3/uL (1.2-4.9); Lymphocytes Percent Auto 44.7 % (20-40); Mean Corpuscular HGB Conc 31.6 g/dl (31.0-35.0); Mean Corpuscular Hemoglobin 27.5 pg (27.0-33.0); Mean Corpuscular Volume 87.1 fL (80.0-98.0); Mean Platelet Volume 9.3 fL (9.4-12.3); Monocytes Absolute Auto 0.4 X10*3/uL (0.1-1.2); Monocytes Percent Auto 6.6 % (2-11); Neutrophils Absolute Auto 2.5 x10*3/uL (2.0-8.3); Neutrophils Percent Auto 44.9 % (45-73); Platelet Count 317 X10*3/uL (160-400); Red Blood Count 5.02 X10*6/uL (4.20-5.50); Red Cell Distribution Width 14.9 % (11.0-16.0); White Blood Count 5.6 X10*3/uL (4.8-10.8)
[2023-09-09 14:06] LABS: Creatinine Urine 56.61 mg/dL; Microalbum/Creatinine Ratio Ur 15.8 ug/mg cr (<30)
[2023-09-09 14:42] LABS: Alanine Aminotransferase 12 U/L (0-31); Albumin Level 3.9 g/dL (3.5-5.0); Alkaline Phosphatase 81 U/L (39-117); Anion Gap 11 (12-20); Aspartate Amino Transferase 14 U/L (5-31); Bilirubin Total 0.4 mg/dL (0.0-1.0); Blood Urea Nitrogen 16 mg/dL (9-16); Calcium 9.5 mg/dL (8.4-10.2); Carbon Dioxide 33 mmol/L (22-29); Chloride 100 mmol/L (96-108); Cholesterol 215 mg/dL (<200); Estimated Glomerular Filt Rate > 60; Glucose Fasting 139 mg/dL (60-99); HDL Cholesterol 63 mg/dL (>40); LDL Cholesterol Calculated 117 mg/dL (<100); Potassium 4.2 mmol/L (3.3-5.1); Sodium 140 mmol/L (135-145); Total Protein 7.6 g/dL (6.5-8.0); Triglycerides 178 mg/dL (<150)
[2023-09-09 14:59] LABS: TSH reflex Free T4 1.53 uIU/mL (0.32-4.0)
[2023-09-09 15:44] LABS: Estimated Average Glucose 163 mg/dL; Hemoglobin A1C 191.2405 umol/L; Hemoglobin A1c % 7.3 % (<6.0)
== END 2023-09-09 11:09 | disposition home or self-care (01) ==
LOC: HO.HMGCLDS 11:08
PROVIDERS: PCP Internal Medicine; Visit Provider Internal Medicine
DX: E11.9 Type 2 diabetes mellitus without complications (principal); E66.9 Obesity, unspecified; E78.5 Hyperlipidemia, unspecified; I10 Essential (primary) hypertension
CPT/HCPCS: 36415; 80053; 80061; 82043; 82570; 83036; 84443; 85025

== ENCOUNTER 2023-09-17 11:20 | Outpatient (AMB) | payer OTHER, SELFPAY ==
--- NOTE | 2023-09-17 11:43 | A.OFFPC_ITS ---
Vital Signs 09/17/23 11:44 Height 4 ft 11 in Weight 224 lb BMI 45.2 BP 110/66 Blood Pressure Location Rt brachial Position Sitting Pulse 87 Pulse Source Pulse Oximeter Pulse Oximetry (%) 96 Oxygen Delivery Method Room Air Intake Visit Reasons: Annual PE Intake Note: Pt is here today for PE. Allergies almond Allergy (Unknown, Verified 09/17/23 11:47) itchy throat and eyes SOB apple Allergy (Unknown, Verified 09/17/23 11:47) itchy throat eyes Medication List - Last Reconciled 09/17/23 by Josefa Giordano MD acetaminophen mg PO acetaminophen ER (Tylenol 8 Hour) 650 mg PO Q8H albuterol sulfate 90 mcg/actuation 1 inh inhalation Q4-6H PRN 10 days [Bed trasfer bar Bed trasfer bar] calcium carbonate (Calcium) 1,200 mg (2 x 600 mg calcium (1,500 mg)) PO DAILY cetirizine 10 mg PO DAILY cholecalciferol (vitamin D3) 50 mcg PO DAILY [cleansing wipes As directed] clotrimazole-betamethasone 1-0.05 % 1 appl topical BID 7 days dicyclomine 10 mg PO TID docusate sodium (Colace) 100 mg PO BID dulaglutide (Trulicity) 3 mg (0.5 mL) subcut QWEEK flash glucose sensor (FreeStyle Bobby 2 Sensor kit) Use to monitor ongoing blood sugar furosemide (Lasix) 20 mg PO Q OTHER DAY gabapentin 200 mg PO BID gabapentin 400 mg PO BID Grab bar 18 inch chrome grab bar insulin glargine 54 units (0.54 mL) subcut BEDTIME insulin lispro (Humalog KwikPen (U-100) Insulin) Inject 6-10 units TID, before each meal, according to sliding scale; lorazepam 0.5 mg PO DAILY PRN metformin ER 1,000 mg (2 x 500 mg) PO BID metronidazole 0.75%(37.5mg/5gram) (Metrogel Vaginal) 1 appful vaginal BEDTIME 5 days olmesartan 5 mg PO DAILY omeprazole 20 mg PO BID [Over the toilet versa frame Over the toilet versa frame] rosuvastatin (Crestor) 20 mg PO DAILY [Tub transfer bar Tub transfer bar] Tobacco use date assessed: 09/17/23 Fall risk assessment: 1 Fall in past year Last assessed Fall Risk: 09/17/23 Dental Screening Dental Screen Date: 09/17/23 Did you have a dental visit in the last 12 months?: Yes Did you have a dental problem in the last 6 months where you did not have access to dental care?: No Was dental information given to patient?: Patient has dentist HPI Annual PE HPI Details Pt presents for PE. Patient has not been compliant with ADA diet and reports glucose readings over 200s most of the time for the last month. She has been eating more carbohydrates including rice and pasta. [facility] Medical History (Updated 09/17/23 @ 12:34 by Josefa Giordano MD) Cataract HTN (hypertension) Endometrial cancer Lower extremity weakness Annual physical exam Mammogram normal Hyperlipidemia Osteoarthritis Diabetic eye exam Gastritis Diabetes Surgical History S/P LIZET-BSO H/O colonoscopy Hx of cholecystectomy History of section History of total abdominal hysterectomy and bilateral salpingo-oophorectomy History of carpal tunnel surgery History of shoulder surgery History of tubal ligation Family History Father No problems noted. Mother No problems noted. Mother No problems noted. Sister Breast cancer Daughter No problems noted. Daughter No problems noted. Social History Housing: House Alcohol intake: never Patient Tobacco Use Status: Former Tobacco user Quit Date: many decades ago e-Cigarette/Vaping Use: Never Used Second Hand Smoke Exposure: No service: No Current occupational status: retired Current occupational exposures/hazards: No Sexual orientation: Straight/Heterosexual Gender identity: Female Cognitive needs: No Hearing needs: No Vision needs: Yes Questionnaire PHQ-9 Over the last 2 weeks, how often have you been bothered by any of the following problems? 1. Little interest or pleasure in doing things: several days 2. Feeling down, depressed, or hopeless: not at all 3. Trouble falling or staying asleep, or sleeping too much: nearly every day 4. Feeling tired or having little energy: several days 5. Poor appetite or overeating: several days 6. Feeling bad about yourself - or that you are a failure or have let yourself or your family down: not at all 7. Trouble concentrating on things, such as reading the newspaper or watching television: several days 8. Moving or speaking so slowly that other people could have noticed. Or the opposite - being so fidgety or restless that you have been moving around a lot more than usual: not at all 9. Thoughts that you would be better off or of hurting yourself in some way: not at all Total score: 7 Depression Screening Interpretation: Negative Depression Screening Done: Yes Source: Developed by Drs. Jacob Ashton, Brook Sheets, Pasquale Ren and colleagues, with an educational tania from [employer]. Thrive Questionnaire Date Thrive assessed: 09/17/23 I am a: Patient What is your living situation today?: I have a steady place to live Within the past 12 months, did the food you bought not last and you didn't have the money to get more?: Often true Within the past 12 months, did you worry whether your food would run out before you got money to buy more?: Never true Do you have trouble paying for medicines?: No Do you have trouble getting transportation to medical appointments?: No Do you have trouble paying your heating and electricity bill?: No Do you have trouble taking care of your child, family member or friend?: Yes Do you have trouble with day-to-day activities such as bathing, preparing meals, shopping, managing finances, etc.?: Yes Are you currently unemployed and looking for a job?: No Are you interested in more education?: No Please select the resources that you would like help with: Daily support THRIVE Score: 1 AUDIT C Alcohol Use Questionnaire (AUDIT-C) 1. How often do you have a drink containing alcohol?: Never 3. How often do you have six or more drinks on one occasion?: Never Total Score: 0 TYREL-7 AMB Questionnaire TYREL-7 Date TYREL - 7 assessed: 09/17/23 Feeling nervous, anxious, or on edge: 0 = Not at all Not being able to stop or control worryin = Not at all Worrying too much about different things: 1 = Several days Trouble relaxin = More than half the days Being so restless that it is hard to sit still: 2 = More than half the days Becoming easily annoyed or irritable: 0 = Not at all Feeling afraid as if something awful might happen: 1 = Several days Total TYREL-7 score (0-4 normal; 5-9 mild; 10-14 moderate; 15-21 severe): 6 Source: Developed by Drs. Jacob Ashton, Brook Sheets, Pasquale Ren and colleagues, with an educational tania from [employer]. Review of Systems Const All systems reviewed & are unremarkable except as noted in HPI and below Reports no additional complaints Eyes Reports no additional complaints ENT Reports no additional complaints Card Reports no additional complaints Resp Reports no additional complaints GI Reports no additional complaints Reports no additional complaints Physical exam (Primary Care) Vital Signs: Last Vital Signs Pulse 87 09/17/23 11:44 BP 110/66 09/17/23 11:44 Pulse Ox 96 09/17/23 11:44 Oxygen Delivery Method Room Air 09/17/23 11:44 BMI result Body Mass Index 45.2 Tobacco/Smoking Status: Tobacco use Status Tobacco use date assessed 09/17/23 09/17/23 11:50 Patient Tobacco Use Status Former Tobacco user 09/17/23 11:50 e-Cigarette/Vaping Use Never Used 09/17/23 11:50 PHQ-9: PHQ-9 Score PHQ-9: Total score 7 09/17/23 11:50 Depression Screening Interpretation: Negative Thrive Assessment: Date of Thrive Assessment Date Thrive assessed 09/17/23 09/17/23 11:50 Const General: no acute distress HENMT Head: Yes normal to inspection Ears: hearing grossly normal bilaterally Face and sinus: Yes normal facial exam Throat: Yes posterior oropharynx normal Eyes General: appearance normal, both eyes and all related structures Neck Neck: Yes no lymphadenopathy and Yes supple Resp Effort & Inspection: normal respiratory effort Auscultation: clear to auscultation bilaterally Cardio Rhythm: regular rhythm Heart sounds: S1 normal heart sound present and S2 normal heart sound present GI Inspection: Yes normal to inspection Palpation (GI): Soft to palpation Percussion: Yes normal to percussion Auscultation: normal bowel sounds Assessment and Plan Assessment & Plan (1) Annual physical exam: Code(s): Z00.00 - Encounter for general adult medical examination without abnormal findings Plan: Well-balanced diet increase physical activity weight loss discussed with the patient she is up-to-date with the mammogram Pap smear and colonoscopy. (2) Mammogram normal: Comment: 05/2023 (3) Diabetes: Comment: A1c is 6.7 03/28 Code(s): E11.9 - Type 2 diabetes mellitus without complications (4) Hyperlipidemia: Comment: Cannot swallow atorvastatin 80 mg pill Code(s): E78.5 - Hyperlipidemia, unspecified Plan: A1c is up to 7.3, ADA diet increase exercise weight loss discussed with the patient. Humalog Sliding scale will be changed to 6 units for glucose between 100-160 and 10 units for over 160 before each meal. Trulicity will be increased to 4.5 mg weekly and patient will continue metformin and Lantus, she will follow-up in 6 weeks to review her blood glucose readings (5) HTN (hypertension): Code(s): I10 - Essential (primary) hypertension Plan: Continue current medications (6) Morbid obesity with BMI of 45.0-49.9, adult: Code(s): E66.01 - Morbid (severe) obesity due to excess calories; Z68.42 - Body mass index [BMI] 45.0-49.9, adult Plan: Weight loss discussed with the patient Medications: New dulaglutide (Trulicity) 4.5 mg (0.5 mL) subcut QWEEK 6 mL 3RF nystatin 1 appl topical DAILY 60 grams 2RF Changed From insulin lispro (Humalog KwikPen (U-100) Insulin) Inject 6-10 units TID, before each meal, according to sliding scale; 15 mL 6RF To insulin lispro (Humalog KwikPen (U-100) Insulin) 6 units for glucose 100- 160, 10 units for >160 tid q AC; 15 mL 6RF Discontinued dicyclomine Discontinued Reason: Doctor's Order 10 mg PO TID 90 caps 5RF dulaglutide (Trulicity) Discontinued Reason: Doctor's Order 3 mg (0.5 mL) subcut QWEEK 6 mL 4RF calcium carbonate (Calcium) Discontinued Reason: Doctor's Order 1,200 mg (2 x 600 mg calcium (1,500 mg)) PO DAILY 60 tabs 11RF M85.80 - Other specified disorders of bone density and structure, unspecified site metronidazole 0.75%(37.5mg/5gram) (Metrogel Vaginal) Discontinued Reason: Doctor's Order 1 appful vaginal BEDTIME 5 days 70 grams 0RF Coding Level of Care Code Est Pt Prev Care >65y(68337) Diagnoses Annual physical exam Z00.00 Mammogram normal Diabetes E11.9 Hyperlipidemia E78.5 HTN (hypertension) I10 Morbid obesity with BMI of 45.0-49.9, adult E66.01; Z68.42
[2023-09-17 11:44] VITALS: BP 110/66; PULSE 87; O2SAT 96; BMI 45.2
== END 2023-09-17 12:36 | disposition home or self-care (01) ==
PROVIDERS: PCP Internal Medicine; Visit Provider Internal Medicine
DX: Z00.00 Encounter for general adult medical examination without abnormal findings (principal); E11.9 Type 2 diabetes mellitus without complications; E66.01 Morbid (severe) obesity due to excess calories; Z68.42 Body mass index [BMI] 45.0-49.9, adult; E78.5 Hyperlipidemia, unspecified; I10 Essential (primary) hypertension
CPT/HCPCS: 99397

== ENCOUNTER 2023-10-29 12:14 | Outpatient (AMB) | payer OTHER, SELFPAY ==
[2023-10-29 12:46] VITALS: BP 126/76; PULSE 88; O2SAT 93; BMI 45.5
--- NOTE | 2023-10-29 12:46 | A.OFFPC_ITS ---
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 Accompanied by: Self / Same As Patient Allergies almond Allergy (Unknown, Verified 10/29/23 12:46) itchy throat and eyes SOB apple Allergy (Unknown, Verified 10/29/23 12:46) itchy throat eyes Medication List - Last Reconciled 10/29/23 by Josefa Giordano MD acetaminophen ER (Tylenol 8 Hour) 650 mg PO Q8H albuterol sulfate 90 mcg/actuation 1 inh inhalation Q4-6H PRN 10 days [Bed trasfer bar Bed trasfer bar] cetirizine 10 mg PO DAILY cholecalciferol (vitamin D3) 50 mcg PO DAILY [cleansing wipes As directed] clotrimazole-betamethasone 1-0.05 % 1 appl topical BID 7 days docusate sodium (Colace) 100 mg PO BID dulaglutide (Trulicity) 4.5 mg (0.5 mL) subcut QWEEK flash glucose sensor (FreeStyle Bobby 2 Sensor kit) Use to monitor ongoing blood sugar furosemide (Lasix) 20 mg PO Q OTHER DAY gabapentin 400 mg PO BID Grab bar 18 inch chrome grab bar insulin glargine 54 units (0.54 mL) subcut BEDTIME insulin lispro (Humalog KwikPen (U-100) Insulin) 6 units for glucose 100-160, 10 units for >160 tid q AC; lorazepam 0.5 mg PO DAILY PRN metformin ER 1,000 mg (2 x 500 mg) PO BID nystatin 1 appl topical DAILY olmesartan 5 mg PO DAILY omeprazole 20 mg PO BID rosuvastatin (Crestor) 20 mg PO DAILY [Tub transfer bar Tub transfer bar] Tobacco use date assessed: 09/17/23 Fall risk assessment: 1 Fall in past year Last assessed Fall Risk: 09/17/23 Dental Screening Dental Screen Date: 09/17/23 Did you have a dental visit in the last 12 months?: Yes Did you have a dental problem in the last 6 months where you did not have access to dental care?: No Was dental information given to patient?: Patient has dentist HPI 6 week follow up HPI Details Patient presents for the follow-up of type 2 diabetes. She reports better control since increasing the sliding scale dose and Trulicity to 4.5 mg weekly. She reports readings between low 90s and 120 in the mornings. Hypertension hyperlipidemia stable on medications PFSH Medical History Cataract HTN (hypertension) Endometrial cancer Lower extremity weakness Annual physical exam Mammogram normal Hyperlipidemia Osteoarthritis Diabetic eye exam Gastritis Diabetes Surgical History S/P LIZET-BSO H/O colonoscopy Hx of cholecystectomy History of section History of total abdominal hysterectomy and bilateral salpingo-oophorectomy History of carpal tunnel surgery History of shoulder surgery History of tubal ligation Family History Father No problems noted. Mother No problems noted. Mother No problems noted. Sister Breast cancer Daughter No problems noted. Daughter No problems noted. Social History Housing: House Alcohol intake: never Patient Tobacco Use Status: Former Tobacco user Quit Date: many decades ago e-Cigarette/Vaping Use: Never Used Second Hand Smoke Exposure: No service: No Current occupational status: retired Current occupational exposures/hazards: No Sexual orientation: Straight/Heterosexual Gender identity: Female Cognitive needs: No Hearing needs: No Vision needs: Yes Questionnaire Thrive Questionnaire Date Thrive assessed: 09/17/23 TYREL-7 AMB Questionnaire TYREL-7 Date TYREL - 7 assessed: 09/17/23 Source: Developed by Drs. Jacob Ashton, Brook Sheets, Pasquale Ren and colleagues, with an educational tania from [employer]. Review of Systems Eyes Reports no additional complaints Card Reports no additional complaints Resp Reports no additional complaints GI Reports no additional complaints Reports no additional complaints Physical exam (Primary Care) Vital Signs: Last Vital Signs Pulse 88 10/29/23 12:46 BP 126/76 10/29/23 12:46 Pulse Ox 93 10/29/23 12:46 Oxygen Delivery Method Room Air 10/29/23 12:46 BMI result Body Mass Index 45.5 Tobacco/Smoking Status: Tobacco use Status Tobacco use date assessed 09/17/23 10/29/23 12:48 Patient Tobacco Use Status Former Tobacco user 10/29/23 12:48 e-Cigarette/Vaping Use Never Used 10/29/23 12:48 Thrive Assessment: Date of Thrive Assessment Date Thrive assessed 09/17/23 10/29/23 12:48 Const General: no acute distress Neck Neck: Yes supple Resp Effort & Inspection: normal respiratory effort Auscultation: clear to auscultation bilaterally Cardio Rhythm: regular rhythm Heart sounds: S1 normal heart sound present and S2 normal heart sound present GI Inspection: Yes normal to inspection Palpation (GI): Soft to palpation Assessment and Plan Assessment & Plan (1) HTN (hypertension): Code(s): I10 - Essential (primary) hypertension Plan: Continue current medications (2) Diabetes: Comment: A1c is 6.7 03/28 Code(s): E11.9 - Type 2 diabetes mellitus without complications Plan: ADA diet regular physical activity weight loss discussed with the patient continue current medications follow-up in 3 months with a fasting labs before (3) Hyperlipidemia: Comment: Cannot swallow atorvastatin 80 mg pill Code(s): E78.5 - Hyperlipidemia, unspecified Plan: Continue crestor Orders: Orders Comprehensive [place]. Panel Fast 3 Months E11.9 - Type 2 diabetes mellitus without complications, E78.5 - Hyperlipidemia, unspecified, I10 - Essential (primary) hypertension Hemoglobin A1c 3 Months E11.9 - Type 2 diabetes mellitus without complications, E78.5 - Hyperlipidemia, unspecified, I10 - Essential (primary) hypertension Microalbumin, Random (w Creat) 3 Months E11.9 - Type 2 diabetes mellitus without complications, E78.5 - Hyperlipidemia, unspecified, I10 - Essential (primary) hypertension Complete Blood Count Auto Diff 3 Months E11.9 - Type 2 diabetes mellitus without complications, E78.5 - Hyperlipidemia, unspecified, I10 - Essential (primary) hypertension Lipid Panel 3 Months E11.9 - Type 2 diabetes mellitus without complications, E78.5 - Hyperlipidemia, unspecified, I10 - Essential (primary) hypertension Coding Level of Care Code Est Pt Level 4 (19583) Diagnoses HTN (hypertension) I10 Diabetes E11.9 Hyperlipidemia E78.5
== END 2023-10-29 13:39 | disposition home or self-care (01) ==
PROVIDERS: PCP Internal Medicine; Visit Provider Internal Medicine
DX: I10 Essential (primary) hypertension (principal); E11.69 Type 2 diabetes mellitus with other specified complication; E78.5 Hyperlipidemia, unspecified
CPT/HCPCS: 99214

== ENCOUNTER 2024-02-23 09:09 | Outpatient (REF) | payer OTHER, SELFPAY ==
[2024-02-23 10:36] LABS: MANUAL DIFF FLAG NO
[2024-02-23 10:42] LABS: Basophils Percent Auto 0.5 % (0-2); Eosinophils Absolute Auto 0.2 X10*3/uL (0.0-0.4); Eosinophils Percent Auto 2.7 % (0-4); Hematocrit 40.1 % (37.0-47.0); Imm Gran Abs Auto 0.03 X10*3/uL (0.00-0.03); Imm Gran Pct Auto 0.5 % (0.0-0.4); Lymphocytes Absolute Auto 2.4 X10*3/uL (1.2-4.9); Lymphocytes Percent Auto 44.7 % (20-40); Mean Corpuscular HGB Conc 32.4 g/dl (31.0-35.0); Mean Corpuscular Hemoglobin 28.4 pg (27.0-33.0); Mean Corpuscular Volume 87.6 fL (80.0-98.0); Monocytes Absolute Auto 0.5 X10*3/uL (0.1-1.2); Monocytes Percent Auto 8.2 % (2-11); Neutrophils Absolute Auto 2.4 x10*3/uL (2.0-8.3); Neutrophils Percent Auto 43.4 % (45-73); Platelet Count 303 X10*3/uL (160-400); Red Blood Count 4.58 X10*6/uL (4.20-5.50); Red Cell Distribution Width 15.1 % (11.0-16.0); White Blood Count 5.5 X10*3/uL (4.8-10.8)
[2024-02-23 11:14] LABS: Alanine Aminotransferase 16 U/L (0-31); Albumin Level 3.8 g/dL (3.5-5.0); Alkaline Phosphatase 84 U/L (39-117); Anion Gap 13 (12-20); Aspartate Amino Transferase 15 U/L (5-31); Bilirubin Total 0.4 mg/dL (0.0-1.0); Blood Urea Nitrogen 15 mg/dL (9-16); Calcium 9.9 mg/dL (8.4-10.2); Carbon Dioxide 28 mmol/L (22-29); Chloride 100 mmol/L (96-108); Cholesterol 228 mg/dL (<200); Estimated Glomerular Filt Rate > 60; Glucose Fasting 209 mg/dL (60-99); HDL Cholesterol 55 mg/dL (>40); LDL Cholesterol Calculated 124 mg/dL (<100); Potassium 4.3 mmol/L (3.3-5.1); Sodium 137 mmol/L (135-145); Total Protein 7.5 g/dL (6.5-8.0); Triglycerides 249 mg/dL (<150)
[2024-02-23 11:18] LABS: Estimated Average Glucose 174 mg/dL; Hemoglobin A1c % 7.7 % (<6.0)
[2024-02-23 11:29] LABS: Creatinine Urine 30.01 mg/dL; Microalbum/Creatinine Ratio Ur 26.6 ug/mg cr (<30)
== END 2024-02-23 09:10 | disposition home or self-care (01) ==
LOC: HO.HMGCLDS 09:09
PROVIDERS: PCP Internal Medicine; Visit Provider Internal Medicine
DX: I10 Essential (primary) hypertension (principal); E11.9 Type 2 diabetes mellitus without complications; E78.5 Hyperlipidemia, unspecified
CPT/HCPCS: 36415; 80053; 80061; 82043; 82570; 83036; 85025

== ENCOUNTER 2024-02-26 11:06 | Outpatient (AMB) | payer OTHER, SELFPAY ==
[2024-02-26 11:17] VITALS: BP 122/64; PULSE 82; O2SAT 97; BMI 47.3
--- NOTE | 2024-02-26 11:17 | MHC.PC.OV ---
Vital Signs 02/26/24 11:17 Height 4 ft 11 in Weight 234 lb BMI 47.3 BP 122/64 Blood Pressure Location Rt brachial Position Sitting Pulse 82 Pulse Source Pulse Oximeter Pulse Oximetry (%) 97 Oxygen Delivery Method Room Air Intake Visit Reasons: 3 month R/S 01/25 Intake Note: Pt is here today for 3 months follow up visit on labs. Pt states that she has been having pain in her knees and ankles. Allergies almond Allergy (Unknown, Verified 02/26/24 11:19) itchy throat and eyes SOB apple Allergy (Unknown, Verified 02/26/24 11:19) itchy throat eyes Medication List - Last Reconciled 02/26/24 by Josefa Giordano MD acetaminophen ER (Tylenol 8 Hour) 650 mg PO Q8H albuterol sulfate 90 mcg/actuation 1 inh inhalation Q4-6H PRN 10 days [Bed trasfer bar Bed trasfer bar] cetirizine 10 mg PO DAILY cholecalciferol (vitamin D3) 50 mcg PO DAILY [cleansing wipes As directed] clotrimazole-betamethasone 1-0.05 % 1 appl topical BID 7 days docusate sodium (Colace) 100 mg PO BID flash glucose sensor (FreeStyle Bobby 2 Sensor kit) Use to monitor ongoing blood sugar furosemide (Lasix) 20 mg PO Q OTHER DAY gabapentin 400 mg PO BID Grab bar 18 inch chrome grab bar insulin glargine 54 units (0.54 mL) subcut BEDTIME insulin lispro (Humalog KwikPen (U-100) Insulin) 6 units for glucose 100-160, 10 units for >160 tid q AC; lorazepam 0.5 mg PO DAILY PRN metformin ER 1,000 mg (2 x 500 mg) PO BID Mounjaro (tirzepatide) 10 mg (0.5 mL) subcut QWEEK NS nystatin 1 appl topical DAILY olmesartan 5 mg PO DAILY omeprazole 20 mg PO BID rosuvastatin (Crestor) 20 mg PO DAILY [Tub transfer bar Tub transfer bar] Tobacco use date assessed: 02/26/24 Fall risk assessment: No Falls in past year Last assessed Fall Risk: 02/26/24 Dental Screening Dental Screen Date: 09/17/23 HPI 3 month R/S 01/25 HPI Details Patient presents for the follow-up of type 2 diabetes hypertension hyperlipidemia. She has not been able to get Trulicity refilled for the last 2 months and gained 10 lb. She does not check her blood glucose regularly and is not compliant with ADA diet. [facility] Medical History Cataract HTN (hypertension) Endometrial cancer Lower extremity weakness Annual physical exam Mammogram normal Hyperlipidemia Osteoarthritis Diabetic eye exam Gastritis Diabetes Surgical History S/P LIZET-BSO H/O colonoscopy Hx of cholecystectomy History of section History of total abdominal hysterectomy and bilateral salpingo-oophorectomy History of carpal tunnel surgery History of shoulder surgery History of tubal ligation Family History Father No problems noted. Mother No problems noted. Mother No problems noted. Sister Breast cancer Daughter No problems noted. Daughter No problems noted. Social History Housing: House Alcohol intake: never Patient Tobacco Use Status: Former Tobacco user e-Cigarette/Vaping Use: Never Used Second Hand Smoke Exposure: No service: No Current occupational status: retired Current occupational exposures/hazards: No Sexual orientation: Straight/Heterosexual Gender identity: Female Cognitive needs: No Hearing needs: No Vision needs: Yes Questionnaire Thrive Questionnaire Date Thrive assessed: 09/17/23 TYREL-7 AMB Questionnaire TYREL-7 Date TYREL - 7 assessed: 09/17/23 Source: Developed by Drs. Jacob Ashton, Brook Sheets, Pasquale Ren and colleagues, with an educational tania from [employer]. Review of Systems Const All systems reviewed & are unremarkable except as noted in HPI and below Eyes Reports no additional complaints Card Reports no additional complaints Resp Reports no additional complaints GI Reports no additional complaints Physical exam (Primary Care) Vital Signs: Last Vital Signs Pulse 82 02/26/24 11:17 BP 122/64 02/26/24 11:17 Pulse Ox 97 02/26/24 11:17 Oxygen Delivery Method Room Air 02/26/24 11:17 BMI result Body Mass Index 47.3 Tobacco/Smoking Status: Tobacco use Status Tobacco use date assessed 02/26/24 02/26/24 11:22 Patient Tobacco Use Status Former Tobacco user 02/26/24 11:22 e-Cigarette/Vaping Use Never Used 02/26/24 11:22 Thrive Assessment: Date of Thrive Assessment Date Thrive assessed 09/17/23 02/26/24 11:22 Const General: no acute distress HENMT Throat: Yes posterior oropharynx normal Resp Effort & Inspection: normal respiratory effort Auscultation: clear to auscultation bilaterally Cardio Rhythm: regular rhythm Heart sounds: S1 normal heart sound present and S2 normal heart sound present GI Inspection: Yes normal to inspection Assessment and Plan Assessment & Plan (1) Morbid obesity with BMI of 45.0-49.9, adult: Code(s): E66.01 - Morbid (severe) obesity due to excess calories; Z68.42 - Body mass index [BMI] 45.0-49.9, adult Plan: Decrease caloric intake increase physical activity weight loss discussed with the patient. (2) Diabetes: Comment: A1c is 6.7 03/28 Code(s): E11.9 - Type 2 diabetes mellitus without complications Plan: A1c is 7.7. ADA diet increase physical activity weight loss discussed with the patient Mounjaro 10 mg weekly will be started. If patient tolerates medication well for the 1st week to dose can be increased. (3) Hyperlipidemia: Comment: Cannot swallow atorvastatin 80 mg pill Code(s): E78.5 - Hyperlipidemia, unspecified Plan: Continue rosuvastatin (4) HTN (hypertension): Code(s): I10 - Essential (primary) hypertension Plan: Continue olmesartan Orders: Orders Hemoglobin A1c 3 Months E11.9 - Type 2 diabetes mellitus without complications, E66.01 - Morbid (severe) obesity due to excess calories, E78.5 - Hyperlipidemia, unspecified, I10 - Essential (primary) hypertension, Z68.42 - Body mass index [BMI] 45.0-49.9, adult Complete Blood Count Auto Diff 3 Months E11.9 - Type 2 diabetes mellitus without complications, E66.01 - Morbid (severe) obesity due to excess calories, E78.5 - Hyperlipidemia, unspecified, I10 - Essential (primary) hypertension, Z68.42 - Body mass index [BMI] 45.0-49.9, adult Microalbumin, Random (w Creat) 3 Months E11.9 - Type 2 diabetes mellitus without complications, E66.01 - Morbid (severe) obesity due to excess calories, E78.5 - Hyperlipidemia, unspecified, I10 - Essential (primary) hypertension, Z68.42 - Body mass index [BMI] 45.0-49.9, adult Comprehensive [place]. Panel Fast 3 Months E11.9 - Type 2 diabetes mellitus without complications, E66.01 - Morbid (severe) obesity due to excess calories, E78.5 - Hyperlipidemia, unspecified, I10 - Essential (primary) hypertension, Z68.42 - Body mass index [BMI] 45.0-49.9, adult Lipid Panel 3 Months E11.9 - Type 2 diabetes mellitus without complications, E66.01 - Morbid (severe) obesity due to excess calories, E78.5 - Hyperlipidemia, unspecified, I10 - Essential (primary) hypertension, Z68.42 - Body mass index [BMI] 45.0-49.9, adult Medications: New Mounjaro (tirzepatide) 10 mg (0.5 mL) subcut QWEEK 6 mL 3RF NS Discontinued dulaglutide (Trulicity) Discontinued Reason: Doctor's Order 4.5 mg (0.5 mL) subcut QWEEK 6 mL 3RF Coding Level of Care Code Est Pt Level 4 (38849) Complex EM visit Add On G2211 Diagnoses Morbid obesity with BMI of 45.0-49.9, adult E66.01; Z68.42 Diabetes E11.9 Hyperlipidemia E78.5 HTN (hypertension) I10
== END 2024-02-26 12:13 | disposition home or self-care (01) ==
PROVIDERS: PCP Internal Medicine; Visit Provider Internal Medicine
DX: E66.01 Morbid (severe) obesity due to excess calories (principal); Z68.42 Body mass index [BMI] 45.0-49.9, adult; E11.9 Type 2 diabetes mellitus without complications; E78.5 Hyperlipidemia, unspecified; I10 Essential (primary) hypertension
CPT/HCPCS: 99214; G2211

== ENCOUNTER 2024-05-17 09:38 | Outpatient (REF) | payer OTHER, SELFPAY ==
[2024-05-17 13:14] LABS: MANUAL DIFF FLAG NO
[2024-05-17 13:25] LABS: Basophils Percent Auto 0.7 % (0-2); Eosinophils Absolute Auto 0.1 X10*3/uL (0.0-0.4); Hematocrit 43.4 % (37.0-47.0); Hemoglobin 13.9 g/dl (12.0-16.0); Imm Gran Abs Auto 0.02 X10*3/uL (0.00-0.03); Imm Gran Pct Auto 0.3 % (0.0-0.4); Lymphocytes Absolute Auto 2.3 X10*3/uL (1.2-4.9); Lymphocytes Percent Auto 39.1 % (20-40); Mean Corpuscular Hemoglobin 27.9 pg (27.0-33.0); Mean Platelet Volume 9.3 fL (9.4-12.3); Monocytes Absolute Auto 0.5 X10*3/uL (0.1-1.2); Monocytes Percent Auto 7.6 % (2-11); Neutrophils Percent Auto 50.3 % (45-73); Platelet Count 339 X10*3/uL (160-400); Red Blood Count 4.99 X10*6/uL (4.20-5.50); Red Cell Distribution Width 14.7 % (11.0-16.0); White Blood Count 5.9 X10*3/uL (4.8-10.8)
[2024-05-17 13:34] LABS: Estimated Average Glucose 166 mg/dL; Hemoglobin A1C 209.5185 umol/L; Hemoglobin A1c % 7.4 % (<6.0); Total Hemoglobin (HGBA1C) 3659.5925 umol/L
[2024-05-17 13:42] LABS: Alanine Aminotransferase 16 U/L (0-31); Alkaline Phosphatase 95 U/L (39-117); Anion Gap 14 (12-20); Aspartate Amino Transferase 26 U/L (5-31); Bilirubin Total 0.5 mg/dL (0.0-1.0); Blood Urea Nitrogen 13 mg/dL (9-16); Carbon Dioxide 28 mmol/L (22-29); Chloride 100 mmol/L (96-108); Cholesterol 217 mg/dL (<200); Estimated Glomerular Filt Rate > 60; Glucose Fasting 132 mg/dL (60-99); HDL Cholesterol 51 mg/dL (>40); LDL Cholesterol Calculated 126 mg/dL (<100); Potassium 4.3 mmol/L (3.3-5.1); Sodium 138 mmol/L (135-145); Total Protein 7.7 g/dL (6.5-8.0); Triglycerides 202 mg/dL (<150)
[2024-05-17 13:57] LABS: Microalbum/Creatinine Ratio Ur 28.5 ug/mg cr (<30)
== END 2024-05-17 09:39 | disposition home or self-care (01) ==
LOC: HO.HMGCLDS 09:38
PROVIDERS: PCP Internal Medicine; Visit Provider Internal Medicine
DX: E66.01 Morbid (severe) obesity due to excess calories (principal); Z68.42 Body mass index [BMI] 45.0-49.9, adult; I10 Essential (primary) hypertension; E11.9 Type 2 diabetes mellitus without complications; E78.5 Hyperlipidemia, unspecified
CPT/HCPCS: 36415; 80053; 80061; 82043; 82570; 83036; 85025

== ENCOUNTER 2024-05-25 09:56 | Outpatient (AMB) | payer OTHER, SELFPAY ==
--- NOTE | 2024-05-25 09:58 | A.OFFPC_ITS ---
Vital Signs 05/25/24 09:59 Height 4 ft 11 in Weight 225 lb BMI 45.4 BP 126/64 Blood Pressure Location Lt brachial Position Sitting Pulse 90 Pulse Source Pulse Oximeter Pulse Oximetry (%) 96 Oxygen Delivery Method Room Air Intake Visit Reasons: 3 month Intake Note: Pt is here today for 3 months follow up visit. Allergies almond Allergy (Unknown, Verified 05/25/24 10:01) itchy throat and eyes SOB apple Allergy (Unknown, Verified 05/25/24 10:01) itchy throat eyes Medication List - Last Reconciled 05/25/24 by Josefa Giordano MD acetaminophen ER (Tylenol 8 Hour) 650 mg PO Q8H albuterol sulfate 90 mcg/actuation 1 inh inhalation Q4-6H PRN 10 days [Bed trasfer bar Bed trasfer bar] cetirizine 10 mg PO DAILY cholecalciferol (vitamin D3) 50 mcg PO DAILY [cleansing wipes As directed] clotrimazole-betamethasone 1-0.05 % 1 appl topical BID 7 days docusate sodium (Colace) 100 mg PO BID flash glucose sensor (FreeStyle Bobby 2 Sensor kit) Use to monitor ongoing blood sugar furosemide (Lasix) 20 mg PO Q OTHER DAY gabapentin 400 mg PO BID Grab bar 18 inch chrome grab bar insulin glargine 54 units (0.54 mL) subcut BEDTIME insulin lispro (Humalog KwikPen (U-100) Insulin) 6 units for glucose 100-160, 10 units for >160 tid q AC; lorazepam 0.5 mg PO DAILY PRN metformin ER 1,000 mg (2 x 500 mg) PO BID nystatin 1 appl topical DAILY olmesartan 5 mg PO DAILY omeprazole 20 mg PO BID rosuvastatin (Crestor) 20 mg PO DAILY rosuvastatin (Crestor) 40 mg PO DAILY tirzepatide (Mounjaro) 12.5 mg (0.5 mL) subcut QWEEK [Tub transfer bar Tub transfer bar] Tobacco use date assessed: 05/25/24 Fall risk assessment: No Falls in past year Last assessed Fall Risk: 05/25/24 Dental Screening Dental Screen Date: 05/25/24 Did you have a dental visit in the last 12 months?: Yes Did you have a dental problem in the last 6 months where you did not have access to dental care?: No Was dental information given to patient?: Patient has dentist HPI 3 month HPI Details Patient presents for the follow-up of insulin-dependent diabetes hyperlipidemia morbid obesity. Patient reports improving blood glucose readings since started using Mounjaro and lost 10 lb. She has been more physically active [facility] Medical History (Updated 05/25/24 @ 10:36 by Josefa Giordano MD) Cataract HTN (hypertension) Endometrial cancer Lower extremity weakness Annual physical exam Mammogram normal Hyperlipidemia Osteoarthritis Diabetic eye exam Gastritis Diabetes Surgical History S/P LIZET-BSO H/O colonoscopy Hx of cholecystectomy History of section History of total abdominal hysterectomy and bilateral salpingo-oophorectomy History of carpal tunnel surgery History of shoulder surgery History of tubal ligation Family History Father No problems noted. Mother No problems noted. Mother No problems noted. Sister Breast cancer Daughter No problems noted. Daughter No problems noted. Social History Housing: House Alcohol intake: never Patient Tobacco Use Status: Former Tobacco user e-Cigarette/Vaping Use: Never Used Second Hand Smoke Exposure: No service: No Current occupational status: retired Current occupational exposures/hazards: No Sexual orientation: Straight/Heterosexual Gender identity: Female Cognitive needs: No Hearing needs: No Vision needs: Yes Questionnaire Thrive Questionnaire Date Thrive assessed: 09/17/23 AUDIT C Alcohol Use Questionnaire (AUDIT-C) 1. How often do you have a drink containing alcohol?: Never 3. How often do you have six or more drinks on one occasion?: Never Total Score: 0 TYREL-7 AMB Questionnaire TYREL-7 Date TYREL - 7 assessed: 09/17/23 Source: Developed by Drs. Jacob Ashton, Brook Sheets, Pasquale Ren and colleagues, with an educational tania from [employer]. Review of Systems Const All systems reviewed & are unremarkable except as noted in HPI and below ENT Reports no additional complaints Card Reports no additional complaints Resp Reports no additional complaints GI Reports no additional complaints Reports no additional complaints Musc Reports no additional complaints Physical exam (Primary Care) Vital Signs: Last Vital Signs Pulse 90 11/19/24 09:59 BP 126/64 05/25/24 09:59 Pulse Ox 96 05/25/24 09:59 Oxygen Delivery Method Room Air 05/25/24 09:59 BMI result Body Mass Index 45.4 Tobacco/Smoking Status: Tobacco use Status Tobacco use date assessed 05/25/24 05/25/24 10:02 Patient Tobacco Use Status Former Tobacco user 05/25/24 10:00 e-Cigarette/Vaping Use Never Used 05/25/24 10:00 Thrive Assessment: Date of Thrive Assessment Date Thrive assessed 09/17/23 05/25/24 10:00 Const General: no acute distress HENMT Head: Yes normal to inspection Eyes General: appearance normal, both eyes and all related structures Resp Effort & Inspection: normal respiratory effort Auscultation: clear to auscultation bilaterally Cardio Rhythm: regular rhythm Heart sounds: S1 normal heart sound present and S2 normal heart sound present GI Inspection: Yes normal to inspection Palpation (GI): Soft to palpation Percussion: Yes normal to percussion Auscultation: normal bowel sounds Coding Level of Care Code Est Pt Level 4 (35316) Complex EM visit Add On G2211 Diagnoses Morbid obesity with BMI of 45.0-49.9, adult E66.01; Z68.42 Diabetes E11.9 HTN (hypertension) I10 Hyperlipidemia E78.5 Assessment & Plan Assessment & Plan (1) Morbid obesity with BMI of 45.0-49.9, adult: Code(s): E66.01 - Morbid (severe) obesity due to excess calories; Z68.42 - Body mass index [BMI] 45.0-49.9, adult Category: Medical Plan: DECREASING CALORIC INTAKE INCREASING PHYSICAL ACTIVITY DISCUSSED WITH THE PATIENT. MOUNJARO WILL BE INCREASED TO 12.5 MG WEEKLY (2) Diabetes: Comment: IDDM, A1c 7.4 05/30, Code(s): E11.9 - Type 2 diabetes mellitus without complications Category: Medical Plan: ADA diet increase physical activity weight loss discussed with the patient. Increase Mounjaro to 12.5 mg weekly patient was advised to have a snack before bedtime to avoid morning hypoglycemia. If she has persistent hypoglycemia a Lantus will be decreased to 50 units a day. Patient will continue sliding scale with Humalog (3) HTN (hypertension): Code(s): I10 - Essential (primary) hypertension Category: Medical Plan: Continue olmesartan (4) Hyperlipidemia: Comment: Cannot swallow atorvastatin 80 mg pill Code(s): E78.5 - Hyperlipidemia, unspecified Category: Medical Plan: Increase Crestor to 40 mg for the LDL goal of less than 100, follow-up in 4 months with a fasting labs before Orders: Orders Hemoglobin A1c 4 Months E11.9 - Type 2 diabetes mellitus without complications, E66.01 - Morbid (severe) obesity due to excess calories, E78.5 - Hyperlipidemia, unspecified, I10 - Essential (primary) hypertension, Z68.42 - Body mass index [BMI] 45.0-49.9, adult Comprehensive [place]. Panel Fast 4 Months E11.9 - Type 2 diabetes mellitus without complications, E66.01 - Morbid (severe) obesity due to excess calories, E78.5 - Hyperlipidemia, unspecified, I10 - Essential (primary) hypertension, Z68.42 - Body mass index [BMI] 45.0-49.9, adult Lipid Panel 4 Months E11.9 - Type 2 diabetes mellitus without complications, E66.01 - Morbid (severe) obesity due to excess calories, E78.5 - Hyperlipidemia, unspecified, I10 - Essential (primary) hypertension, Z68.42 - Body mass index [BMI] 45.0-49.9, adult Complete Blood Count Auto Diff 4 Months E11.9 - Type 2 diabetes mellitus without complications, E66.01 - Morbid (severe) obesity due to excess calories, E78.5 - Hyperlipidemia, unspecified, I10 - Essential (primary) hypertension, Z68.42 - Body mass index [BMI] 45.0-49.9, adult Microalbumin, Random (w Creat) 4 Months E11.9 - Type 2 diabetes mellitus without complications, E66.01 - Morbid (severe) obesity due to excess calories, E78.5 - Hyperlipidemia, unspecified, I10 - Essential (primary) hypertension, Z68.42 - Body mass index [BMI] 45.0-49.9, adult Medications: New tirzepatide (Mounjaro) 12.5 mg (0.5 mL) subcut QWEEK 2 mL 3RF rosuvastatin (Crestor) 40 mg PO DAILY 90 tabs 3RF Refilled lorazepam take 1 tabl 1 hour before trip 0.5 mg PO DAILY PRN 4 tabs 0RF anxiety Discontinued rosuvastatin (Crestor) Discontinued Reason: Doctor's Order 20 mg PO DAILY 90 tabs 3RF Mounjaro (tirzepatide) Discontinued Reason: Doctor's Order 10 mg (0.5 mL) subcut QWEEK 6 mL 3RF NS
[2024-05-25 09:59] VITALS: BP 126/64; PULSE 90; O2SAT 96; BMI 45.4
== END 2024-05-25 10:30 | disposition home or self-care (01) ==
PROVIDERS: PCP Internal Medicine; Visit Provider Internal Medicine
DX: E66.01 Morbid (severe) obesity due to excess calories (principal); Z68.42 Body mass index [BMI] 45.0-49.9, adult; E11.9 Type 2 diabetes mellitus without complications; I10 Essential (primary) hypertension; E78.5 Hyperlipidemia, unspecified

== ENCOUNTER → 2024-05-25 09:56 | Outpatient (BNVA) | payer OTHER, SELFPAY | PROVIDERS: PCP Internal Medicine; Visit Provider Internal Medicine | DX: E66.01 Morbid (severe) obesity due to excess calories (principal); Z68.42 Body mass index [BMI] 45.0-49.9, adult; E11.9 Type 2 diabetes mellitus without complications; I10 Essential (primary) hypertension; E78.5 Hyperlipidemia, unspecified | CPT/HCPCS: 99212 ==

== ENCOUNTER 2024-09-22 09:44 | Outpatient (REF) | payer OTHER, SELFPAY ==
[2024-09-22 13:36] LABS: MANUAL DIFF FLAG NO
[2024-09-22 13:40] LABS: Basophils Percent Auto 0.7 % (0-2); Eosinophils Absolute Auto 0.1 X10*3/uL (0.0-0.4); Eosinophils Percent Auto 2.1 % (0-4); Hemoglobin 13.5 g/dl (12.0-16.0); Imm Gran Abs Auto 0.02 X10*3/uL (0.00-0.03); Imm Gran Pct Auto 0.3 % (0.0-0.4); Lymphocytes Absolute Auto 2.5 X10*3/uL (1.2-4.9); Lymphocytes Percent Auto 40.7 % (20-40); Mean Corpuscular HGB Conc 32.1 g/dl (31.0-35.0); Mean Corpuscular Hemoglobin 27.8 pg (27.0-33.0); Mean Corpuscular Volume 86.4 fL (80.0-98.0); Mean Platelet Volume 9.4 fL (9.4-12.3); Monocytes Absolute Auto 0.4 X10*3/uL (0.1-1.2); Monocytes Percent Auto 7.2 % (2-11); Platelet Count 283 X10*3/uL (160-400); Red Blood Count 4.86 X10*6/uL (4.20-5.50); Red Cell Distribution Width 15.1 % (11.0-16.0); White Blood Count 6.1 X10*3/uL (4.8-10.8)
[2024-09-22 14:03] LABS: Estimated Average Glucose 154 mg/dL
[2024-09-22 14:21] LABS: Creatinine Urine 131.41 mg/dL; Microalbum/Creatinine Ratio Ur 6.8 ug/mg cr (<30)
[2024-09-22 14:40] LABS: Alanine Aminotransferase 11 U/L (0-31); Albumin Level 3.7 g/dL (3.5-5.0); Alkaline Phosphatase 74 U/L (39-117); Anion Gap 13 (12-20); Aspartate Amino Transferase 27 U/L (5-31); Bilirubin Total 0.5 mg/dL (0.0-1.0); Blood Urea Nitrogen 23 mg/dL (9-16); Calcium 9.3 mg/dL (8.4-10.2); Carbon Dioxide 24 mmol/L (22-29); Chloride 105 mmol/L (96-108); Cholesterol 146 mg/dL (<200); Estimated Glomerular Filt Rate > 60; Glucose Fasting 149 mg/dL (60-99); HDL Cholesterol 58 mg/dL (>40); LDL Cholesterol Calculated 62 mg/dL (<100); Potassium 4.6 mmol/L (3.3-5.1); Sodium 137 mmol/L (135-145); Total Protein 7.9 g/dL (6.5-8.0); Triglycerides 130 mg/dL (<150)
== END 2024-09-22 09:45 | disposition home or self-care (01) ==
LOC: HO.HMGCLDS 09:44
PROVIDERS: PCP Internal Medicine; Visit Provider Internal Medicine
DX: E11.9 Type 2 diabetes mellitus without complications (principal); E78.5 Hyperlipidemia, unspecified; I10 Essential (primary) hypertension; E66.01 Morbid (severe) obesity due to excess calories; Z68.42 Body mass index [BMI] 45.0-49.9, adult
CPT/HCPCS: 36415; 80053; 80061; 82043; 82570; 83036; 85025

== ENCOUNTER 2024-09-24 13:48 | Outpatient (AMB) | payer OTHER, SELFPAY ==
[2024-09-24 13:51] VITALS: BP 104/58; PULSE 82; RESP 20; TEMP 36.8; O2SAT 96; BMI 44.8
--- NOTE | 2024-09-24 13:51 | A.OFFPC_ITS ---
Vital Signs 09/24/24 13:51 Height 4 ft 11 in Weight 222 lb BMI 44.8 BP 104/58 L Blood Pressure Location Rt brachial Position Sitting Respiration 20 Pulse 82 Pulse Source Pulse Oximeter Temp 98.3 F Temp Source Oral Pulse Oximetry (%) 96 Oxygen Delivery Method Room Air Intake Visit Reasons: 4 months follow up Intake Note: Pt is here today for 4 months follow up visit on DM and labs. Allergies almond Allergy (Unknown, Verified 09/24/24 13:51) itchy throat and eyes SOB apple Allergy (Unknown, Verified 09/24/24 13:51) itchy throat eyes Medication List - Last Reconciled 09/24/24 by Josefa Giordano MD acetaminophen ER (Tylenol 8 Hour) 650 mg PO Q8H albuterol sulfate 90 mcg/actuation 1 inh inhalation Q4-6H PRN 10 days [Bed trasfer bar Bed trasfer bar] cetirizine 10 mg PO DAILY cholecalciferol (vitamin D3) 50 mcg PO DAILY [cleansing wipes As directed] clotrimazole-betamethasone 1-0.05 % 1 appl topical BID 7 days docusate sodium (Colace) 100 mg PO BID empagliflozin (Jardiance) 10 mg PO DAILY flash glucose sensor (FreeStyle Bobby 2 Sensor kit) Use to monitor ongoing blood sugar furosemide (Lasix) 20 mg PO Q OTHER DAY gabapentin 600 mg PO BID Grab bar 18 inch chrome grab bar insulin glargine 54 units (0.54 mL) subcut BEDTIME insulin lispro (Humalog KwikPen (U-100) Insulin) 6 units for glucose 100-160, 10 units for >160 tid q AC; lorazepam 0.5 mg PO DAILY PRN metformin ER 1,000 mg (2 x 500 mg) PO BID Mounjaro (tirzepatide) 15 mg (0.5 mL) subcut QWEEK NS nystatin 1 appl topical DAILY olmesartan 5 mg PO DAILY omeprazole 20 mg PO BID rosuvastatin (Crestor) 40 mg PO DAILY [Tub transfer bar Tub transfer bar] Tobacco use date assessed: 09/24/24 Fall risk assessment: No Falls in past year Last assessed Fall Risk: 09/24/24 Dental Screening Dental Screen Date: 09/24/24 Did you have a dental visit in the last 12 months?: Yes Did you have a dental problem in the last 6 months where you did not have access to dental care?: No Was dental information given to patient?: Patient has dentist HPI 4 months follow up HPI Details Patient presents for the follow-up of type 2 diabetes hyperlipidemia diabetic neuropathy controlled on gabapentin [facility] Medical History Cataract HTN (hypertension) Endometrial cancer Lower extremity weakness Annual physical exam Mammogram normal Hyperlipidemia Osteoarthritis Diabetic eye exam Gastritis Diabetes Surgical History S/P LIZET-BSO H/O colonoscopy Hx of cholecystectomy History of section History of total abdominal hysterectomy and bilateral salpingo-oophorectomy History of carpal tunnel surgery History of shoulder surgery History of tubal ligation Family History Father No problems noted. Mother No problems noted. Mother No problems noted. Sister Breast cancer Daughter No problems noted. Daughter No problems noted. Social History Housing: House Alcohol intake: never Patient Tobacco Use Status: Former Tobacco user e-Cigarette/Vaping Use: Never Used Second Hand Smoke Exposure: No service: No Current occupational status: retired Current occupational exposures/hazards: No Sexual orientation: Straight/Heterosexual Gender identity: Female Cognitive needs: No Hearing needs: No Vision needs: Yes Questionnaire PHQ-9 Over the last 2 weeks, how often have you been bothered by any of the following problems? 1. Little interest or pleasure in doing things: several days 2. Feeling down, depressed, or hopeless: not at all 3. Trouble falling or staying asleep, or sleeping too much: nearly every day 4. Feeling tired or having little energy: several days 5. Poor appetite or overeating: several days 6. Feeling bad about yourself - or that you are a failure or have let yourself or your family down: not at all 7. Trouble concentrating on things, such as reading the newspaper or watching television: several days 8. Moving or speaking so slowly that other people could have noticed. Or the opposite - being so fidgety or restless that you have been moving around a lot more than usual: not at all 9. Thoughts that you would be better off or of hurting yourself in some way: not at all Total score: 7 Depression Screening Interpretation: Negative Depression Screening Done: Yes 33316 - PHQ-9 Billing: Yes Source: Developed by Drs. Jacob Ashton, Brook Sheets, Pasquale Ren and colleagues, with an educational tania from [employer]. Thrive Questionnaire Date Thrive assessed: 09/24/24 I am a: Patient What is your living situation today?: I have a steady place to live Within the past 12 months, did the food you bought not last and you didn't have the money to get more?: Never true Within the past 12 months, did you worry whether your food would run out before you got money to buy more?: Never true Do you have trouble paying for medicines?: No Do you have trouble getting transportation to medical appointments?: No Do you have trouble paying your heating and electricity bill?: No Do you have trouble taking care of your child, family member or friend?: No Do you have trouble with day-to-day activities such as bathing, preparing meals, shopping, managing finances, etc.?: No Are you currently unemployed and looking for a job?: No Are you interested in more education?: No Please select the resources that you would like help with: None THRIVE Score: 0 AUDIT C Alcohol Use Questionnaire (AUDIT-C) 1. How often do you have a drink containing alcohol?: Never 3. How often do you have six or more drinks on one occasion?: Never Total Score: 0 TYREL-7 AMB Questionnaire TYREL-7 Date TYREL - 7 assessed: 09/24/24 Feeling nervous, anxious, or on edge: 0 = Not at all Not being able to stop or control worryin = Not at all Worrying too much about different things: 0 = Not at all Trouble relaxin = Not at all Being so restless that it is hard to sit still: 0 = Not at all Becoming easily annoyed or irritable: 0 = Not at all Feeling afraid as if something awful might happen: 0 = Not at all Total TYREL-7 score (0-4 normal; 5-9 mild; 10-14 moderate; 15-21 severe): 0 Source: Developed by Drs. Jacob Ashton, Brook Sheets, Pasquale Ren and colleagues, with an educational tania from [employer]. TYREL-7 Assessment Billing TYREL-7 Assessment Tool: TYREL-7 Assessment 12622 Review of Systems Const All systems reviewed & are unremarkable except as noted in HPI and below Eyes Reports no additional complaints ENT Reports no additional complaints Card Reports no additional complaints Resp Reports no additional complaints GI Reports no additional complaints Reports no additional complaints Physical exam (Primary Care) Vital Signs: Last Vital Signs Temp 98.3 F 09/24/24 13:51 Pulse 82 09/24/24 13:51 Resp 20 09/24/24 13:51 BP 104/58 L 09/24/24 13:51 Pulse Ox 96 09/24/24 13:51 Oxygen Delivery Method Room Air 09/24/24 13:51 BMI result Body Mass Index 44.8 Tobacco/Smoking Status: Tobacco use Status Tobacco use date assessed 09/24/24 09/24/24 13:57 Patient Tobacco Use Status Former Tobacco user 09/24/24 13:57 e-Cigarette/Vaping Use Never Used 09/24/24 13:57 PHQ-9: PHQ-9 Score PHQ-9: Total score 7 09/24/24 13:57 Depression Screening Interpretation: Negative Thrive Assessment: Date of Thrive Assessment Date Thrive assessed 09/24/24 09/24/24 13:57 Const General: no acute distress HENMT Head: Yes normal to inspection Throat: Yes posterior oropharynx normal Resp Effort & Inspection: normal respiratory effort Auscultation: clear to auscultation bilaterally Cardio Rhythm: regular rhythm Heart sounds: S1 normal heart sound present and S2 normal heart sound present GI Inspection: Yes normal to inspection Palpation (GI): Soft to palpation Percussion: Yes normal to percussion Coding Level of Care Code Est Pt Level 4 (84104) Diagnoses Diabetes E11.9 Morbid obesity with BMI of 45.0-49.9, adult E66.01; Z68.42 HTN (hypertension) I10 Hyperlipidemia E78.5 Additional Codes TYREL-7 Assessment Billing - TYREL-7 Assessment Tool: TYREL-7 Assessment 31048 ([id number]) PHQ-9 - 89599 - PHQ-9 Billing: Yes ([id number]) Assessment & Plan Assessment & Plan (1) Diabetes: Comment: IDDM, A1c 7.4 05/30, Code(s): E11.9 - Type 2 diabetes mellitus without complications Category: Medical Plan: A1c is 7.0. ADA diet increase exercise weight loss discussed with the patient. Increase Mounjaro to 15 mg and add 10 mg of Jardiance. Follow-up in 3 months with a fasting labs before (2) Morbid obesity with BMI of 45.0-49.9, adult: Code(s): E66.01 - Morbid (severe) obesity due to excess calories; Z68.42 - Body mass index [BMI] 45.0-49.9, adult Category: Medical Plan: Decreasing caloric intake increase physical activity discussed with the patient (3) HTN (hypertension): Code(s): I10 - Essential (primary) hypertension Category: Medical Plan: Continue olmesartan (4) Hyperlipidemia: Comment: Cannot swallow atorvastatin 80 mg pill Code(s): E78.5 - Hyperlipidemia, unspecified Category: Medical Plan: Continue statin Orders: Orders Hemoglobin A1c 3 Months E11.9 - Type 2 diabetes mellitus without complications, E66.01 - Morbid (severe) obesity due to excess calories, Z68.42 - Body mass index [BMI] 45.0-49.9, adult Lipid Panel 3 Months E11.9 - Type 2 diabetes mellitus without complications, E66.01 - Morbid (severe) obesity due to excess calories, Z68.42 - Body mass index [BMI] 45.0-49.9, adult Comprehensive [place]. Panel Fast 3 Months E11.9 - Type 2 diabetes mellitus without complications, E66.01 - Morbid (severe) obesity due to excess calories, Z68.42 - Body mass index [BMI] 45.0-49.9, adult Medications: New Mounjaro (tirzepatide) 15 mg (0.5 mL) subcut QWEEK 6 mL 3RF NS empagliflozin (Jardiance) 10 mg PO DAILY 90 tabs 2RF Discontinued tirzepatide (Mounjaro) Discontinued Reason: Doctor's Order 12.5 mg (0.5 mL) subcut QWEEK 2 mL 3RF
--- OUTSIDE RECORDS SUMMARY | 2024-09-24 16:07 | XMS_ITS | Clinical Summary ---
Author Organization [facility] Address [address] [place] [phone] Phone Care Team Providers Care Lacrosse Player Name Role Phone Raul Silva MD Primary Care Provider + [phone] Surgical History Surgery Date Site/Laterality Comments OTHER SURGICAL HISTORY PROCEDURE: VA CORACOACROMIAL LIGAMENT RELEAS W/WOACROMIOPLASTY CHOLECYSTECTOMY PROCEDURE: LAPAROSCOPY, CHOLECYSTECTOMY CARPAL TUNNEL RELEASE PROCEDURE: HISTORICAL CARPAL TUNNEL REL; COMMENT: L SECTION 1975 PROCEDURE: HISTORICAL DELIVERY SECTION 1974 PROCEDURE: HISTORICAL DELIVERY HYSTERECTOMY 08/19/13 PROCEDURE: HISTORICAL TOTAL HYSTERECTOMY WITH BSO; COMMENT: Dr. Trejo, for endometrial ca. 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 Trejo) Family History Medical History Relation Name Comments Breast cancer Sister 1 Colon cancer Neg Hx Ovarian cancer Neg Hx Uterine cancer Neg Hx Relation Name Status Comments Daughter 1 Alive Daughter 2 Alive Father Alive Mother Alive Sister 1 Sister 2 Alive Social History Tobacco Use Types Packs/Day Years Used Date Smoking Tobacco: Former Cigarettes Q uit: 07/21/1996 Smokeless Tobacco: Never Alcohol Use Standard Drinks/Week Comments No 0 (1 standard drink = 0.6 oz pur e alcohol) Comments No Sex and Gender Information Value Date Recorded Sex Assigned at Not on file Legal Sex Female 11:14 AM EST Gender Identity Not on file Sexual Orientation Not on file Obstetrics History Para Term AB IAB SAB Ectopic Multiple Livin g Live Births 2 Last Filed Vital Signs Vital Sign Reading Time Taken Comments Blood Pressure - - Pulse - - Temperature - - Respiratory Rate - - Oxygen Saturation - - Inhaled Oxygen Concentration - - Weight 99.8 kg (220 lb) 05/29/2024 10:56 AM EST Height 121.9 cm (4') 05/29/2024 10:56 AM EST Body Mass Index 67.13 05/29/2024 10:56 AM EST Plan of Treatment Upcoming Encounters Date Type Department Care Team (Late st Contact Info) Description 05/30/2025 1:00 PM EST [facility]ointment [facility] [address] [phone] Health Maintenance Due Date Last Done Comments Diabetes: Annual GFR (Glomerular Filtration Rate) 1952 Diabetes: Annual Foot Exam 1962 Diabetes: Annual Retina Eye Exam 1962 DTaP,Tdap,and Td Vaccines (1 - Tdap) 1971 RSV Immunization Patients 60+ Years Old (1 - Risk 60-74 years 1-dose series) 2012 Pneumococcal Vaccine: 50+ Years (2 of 2 - PPSV23) 04/17/2022 04/17/2021, 05/31/2019 Cholesterol Screening (Lipid Panel) 06/04/2022 Colorectal Cancer Screening: Colonoscopy 06/04/2022 Depression Screening 06/04/2022 Falls Risk Assessment 06/04/2022 Hepatitis C Screening 06/04/2022 Medicare Annual Wellness Visit 06/04/2022 Osteoporosis Screening (Bone Density Screening) 06/04/2022 Social Influencers of Health Screening 06/04/2022 Diabetes: Annual Urine Albumin-Creatinine Ratio (uACR) 06/13/2022 Diabetes: Blood Sugar Control Test (HGBA1C) 06/13/2022 Breast Cancer Screening 05/29/2026 05/29/20, 05/27/2023, 05/24/2022, Additional history exists Zoster Vaccines Completed 07/30/2019, 05/08, 02/10/2014 COVID-19 Vaccine Completed 05/11/2024, 03/2023, 05/09/2022, Additional history exists Influenza Vaccine Completed 05/11/2024, , 06/04/2022, Additional history exists HIB Vaccines Aged Out No longer eligi ble based on patient's age to complete this topic HPV Vaccines Aged Out No longer eligi ble based on patient's age to complete this topic Hepatitis A Vaccines Aged Out No long er eligible based on patient's age to complete this topic Hepatitis B Vaccines Aged Out No long er eligible based on patient's age to complete this topic IPV Vaccines Aged Out No longer eligi ble based on patient's age to complete this topic MMR Vaccines Aged Out No longer eligi ble based on patient's age to complete this topic Meningococcal ACWY Vaccine Aged Out N o longer eligible based on patient's age to complete this topic Meningococcal B Vacine Aged Out No lo nger eligible based on patient's age to complete this topic RSV Immunization Patients Under 20 months Aged Out No longer eligible based on patient's age to complete this topic Varicella Vaccines Aged Out No longer eligible based on patient's age to complete this topic Procedures Procedure Name Priority Date/Time Associated Diagnosis Comments MG MAMMO DIGITAL SCREENING W CHARLIE BILAT Routine 05/29/2024 11:11 AM EST Encounter for screening mammogram for breast cancer from Last 3 Months or Most Recently Relevant to Health Maintenance Results * MG Mammo Digital Screening w Charlie bilat (05/29/2024 11:11 AM EST) Anatomical Region Laterality Modality Breast Bilateral Mammography 05/31/2024 11:1 1 AM EST Impressions 05/31/2024 11:12 AM EST Stable mammographic appearance of the breasts. No evidence of malignancy is seen. A negative mammogram in the presence of a clinically suspicious palpable abnormality does not preclude the possibility of malignancy or alter the indications for biopsy. BI-RADS CATEGORY: 1 - NEGATIVE RECOMMENDATION: Screening bilateral mammogram is recommended in 1 year. Mammo Location: [facility], [address] [place] [address], [id number], . -------- FINAL REPORT -------- Dictated By: Jasmyn Martinez Dictated Date: 05/31/2024 11:11 ET Assigned Physician: Jasmyn Martinez Reviewed and Electronically Signed By: Jasmyn Martinez Signed Date: 05/31/2024 11:12 ET Workstation ID: [id number] Transcribed By: Self Edit Transcribed Date: 05/31/2024 11:11 ET Narrative 05/31/2024 11:12 AM EST HISTORY: Screening. Sister had breast carcinoma in her 50's. COMPARISON: 06/02/23, 05/27/23, 05/24/22, 05/22/21 ?? TECHNIQUE: Bilateral digital breast tomosynthesis was performed in the CC and MLO projections. Computer aided detection with [employer] AI 3D 3.1 was employed. BREAST DENSITY: B - There are scattered areas of fibroglandular density. FINDINGS: No suspicious masses, grouped microcalcifications, or areas of architectural distortion are seen. The skin and vascularity are unremarkable. Procedure Note Jasmyn Martinez MD - 05/31/2024 HISTORY: Screening. Sister had breast carcinoma in her 50's. COMPARISON: 06/02/23, 05/27/23, 05/24/22, 05/22/21 TECHNIQUE: Bilateral digital breast tomosynthesis was performed in the CCand MLO projections. Computer aided detection with [employer] AI 3D 3.1was employed. BREAST DENSITY: B - There are scattered areas of fibroglandular density. FINDINGS: No suspicious masses, grouped microcalcifications, or areas ofarchitectural distortion are seen. The skin and vascularity areunremarkable. IMPRESSION: Stable mammographic appearance of the breasts. No evidence of malignancyis seen. A negative mammogram in the presence of a clinically suspicious palpableabnormality does not preclude the possibility of malignancy or alter theindications for biopsy. BI-RADS CATEGORY: 1 - NEGATIVE RECOMMENDATION: Screening bilateral mammogram is recommended in 1 year. Mammo Location: [facility], [address] [place] [address], [id number], . -------- FINAL REPORT -------- Dictated By: Jasmyn Martinez Dictated Date: 05/31/2024 11:11 ET Assigned Physician: Jasmyn Martinez Reviewed and Electronically Signed By: Jasmyn Martinez Signed Date: 05/31/2024 11:12 ET Workstation ID: [id number] Transcribed By: Self Edit Transcribed Date: 05/31/2024 11:11 ET us Self Referral Sppl IMG BI PROCEDURES Final Resul t from Last 3 Months or Most Recently Relevant to Health Maintenance Insurance MEDICAID - [place] [employer] MEDICARE Care Teams Lacrosse Player Relationship Specialty Start Date End Date Raul Silva MD [address] PCP - General Pediatrics 05/21/13
--- OUTSIDE RECORDS SUMMARY | 2024-09-24 16:07 | XMS_ITS ---
Author Organization [facility] Address [address] [place] [address] Care Team Providers Care Manager Digital Name Role Phone Josefa Giordano MD Primary Care Provider Sandee Ordaz Unavailable [phone] Mendoza Zaragoza Unavailable [phone] REASON FOR VISIT Painful nail(s) aggrevated by shoes and causing difficulty standing/walking., Last Visit PCP 09/27/23 Medications Medication SIG (Take, Route, Frequency, Duration) Notes Start Date End Date Status Voltaren 1 % as directed Externally Active Encounters Encounter Location Date Provider Diagnosis [facility] [address] [address] 03/02/2024 Mendoza Zaragoza Type 1 diabetes mellitus with diabetic polyneuropathy E10.42 ; Plantar fascial fibromatosis M72.2 ; Pain in left foot M79.672 ; Pain in right foot M79.671 ; Primary osteoarthritis, left ankle and foot M19.072 ; Primary osteoarthritis, right ankle and foot M19.071 ; Tinea unguium B35.1 ; Pain in right toe(s) M79.674 ; Pain in left toe(s) M79.675 and Xerosis cutis L85.3 Assessments Encounter Date Diagnosis (ICD Code) Assessment Notes Treatment Notes Treatment Clinical Notes Section Notes 03/02/2024 Type 1 diabetes mellitus with diabetic polyneuropathy (ICD-10 - E10.42) 03/02/2024 Plantar fascial fibromatosis (ICD-10 - M72.2) 03/02/2024 Pain in left foot (ICD-10 - M79.672) 03/02/2024 Pain in right foot (ICD-10 - M79.671) 03/02/2024 Primary osteoarthritis, left ankle and foot (ICD-10 - M19.072) 03/02/2024 Primary osteoarthritis, right ankle and foot (ICD-10 - M19.071) 03/02/2024 Tinea unguium (ICD-10 - B35.1) 03/02/2024 Pain in right toe(s) (ICD-10 - M79.674) 03/02/2024 Pain in left toe(s) (ICD-10 - M79.675) 03/02/2024 Xerosis cutis (ICD-10 - L85.3) Plan Of Treatment Medication Medication Name Sig Start Date Stop Date Notes Voltaren 1 % as directed Externally Next Appt Details Follow Up: 4 Months, Reason: Provider Name:Sandee rodriguez, 11/05/2024 12:00:00 PM, [address] [facility], [address], [place], [address], Procedure Notes * Category Sub-Category Detail Notes Debride Nail 6-10 Nail debridement Nail debridem ent performed extensively to reduce/remove overall nail length and girth, subungual debris, and necrotic tissue, by manual and electrical means with use of a nail nipper and/or dremel, to more viable healthy nail plate or bed tissue 6-10. Silver nitrate used for any petechial bleeding as necessary. Patient chooses, no pharmaceutical tx ([id number]) Keratoma Treatment Parring or Cutting o f Benign Hyperkeratotic Lesion(s) 65513 (2-4 Lesions) - The Benign hyperkeratotic lesions, as described above were pared, and/or cut utilizing a sterile #15 blade, tissue nippers, and/or dremel Progress Notes * Emily KINGDOB:1950 (74 yo F)Acc No.[id number]:03/02/2024 Progress Note Patient:?Emily KING Provider:?Mendoza Zaragoza DPM :1950???Age:73 Y???Sex:Female D ate:03/02/2024 Address:[address] [place], [place] Pcp:Josefa Giordano MD Subjective: * Chief Complaints: * ???1. Painful nail(s) aggrev ated by shoes and causing difficulty standing/walking.. 2. Last Visit PCP 09/27/23. * HPI: ???Foot Pain:?Nature:?sharp, aching.?Location?Top, Bottom, Forefoot, Midfoot, B/L.?Duration:?several years.?Onset/Cause:?unknown.?Course:?improved.?Aggrevated:?any pressure, standing.?Treatments:?ice, nightsplint,?has complied with?new dm shoes and likes them .?At Risk footcare:?Pt States Last PCP Visit:?Date?03/07/2023 ???Painful Nails:?Pt States Last PCP Visit:?Date:?12/16/2022 * ROS:?General/Constitutional:?Nausea?denies.?Vomiting?denies.?Hunger Thirst?denies.?Loss appetite?denies.?Chills?denies.?Fatigue?denies.?Fever?denies.?Night Sweats?denies.?Unexplained weight loss?denies.?Unexplained weight gain?denies.?HEENTM:?Dentures?admits.?Dizziness?denies.?Glasses/contacts?admits.?Retinopathy?de nies.?Blurred/double vision?denies.?TMJ?denies.?Discharge/drainage?denies.?Implants?denies.?Sore throat?denies.?Dental implants?denies.?Hard of hearing ?denies.?Difficulty chewing/swallowing/speaking?denies.?Nose bleeds?denies.?Sore mouth?denies.?Respiratory:?On Oxygen?denies.?Pneumonia/pleurisy?denies.?Bronchitis?denies.?Emphysema?denies.?C oughing?denies.?Cough blood?denies.?Shortness of breath?admits.?Wheezing?denies.?Cardiovascular:?Pacemaker?denies.?MVP?denies.?WPW?denies.?CHF?denies.?Heart attack?denies.?Septal defect?denies.?Rapid beat?denies.?Chest pain ?denies.?Atrial Fib.?denies.?Murmur/Palpitations?denies.?Gastrointestinal:?Hemorrhoids?denies.?Stomach/Abdominal pain?denies.?Dark blood stool?denies.?Irritable bowel ?denies.?Constipation?denies.?Diarrhea?denies.?Hematology:?Swelling?denies.?Clots?denies.?Varicose Veins?admits.?Bruising?denies.?Bleeding problem?denies.?Genitourinary:?Blood urine?denies.?Frequent/Painfu/urination/bladder control?denies.?Kidney stones?denies.?Infection (UTI)?denies.?Nephropathy?denies.?sex trans dis (STD)?denies.?Prostate?denies.?Musculoskeletal:?Hammertoes?denies.?Bunions?denies.?Back Pain?denies.?Muscle Cramps/ Resting?admits.?Muscle cramps / walking?denies.?Generalized aches and pains?denies.?Weakness?denies.?Integ.:?Foster?denies.?Scars?denies.?Corns/calluses?denies.?Ingrown nails?denies.?Painful nails?denies.?Open Sores?denies.?Rashes?denies.?Neurologic:?Difficulty sleeping?admits.?Brain disorder?denies.?Numbness?admits.?Balance trouble?denies.?Confusion?denies.?Fainting/blackouts?denies.?Tingling?admits.?Tr emors?denies.? * Medical History:? Objective: * Vitals:? * Examination: ???Ophthalmology Referral: ?DIABETES EYE EXAM?Diabetic Retinopathy Screening:?Yes 06/2023?General Examination: ?GENERAL APPEARANCE:?pleasant, alert, well nourished, well developed, well hydrated, with good attention to hygene/body habitus, and in no acute distress.?ORIENTED:?person,place, and time.?Neurological: ?SENSORY:? Neurological exam demonstrates pop mey 4/5th -cub and pop mey ankle and plantar fascia midsection mey , 5.07 monofilament test performed at plantar aspects of 5 varied sites per foot shows sensation, reduced , B/L.?TINEL'S COMPRESSION:?Negative tarsal tunnel, laura pedis, and medial calcaneal nerves B/L.?BABINSKI REFLEX:?absent.?Neuroma Pain: ?PALPATION:?No interspace pain noted on palpation.?Vascular: ?DP PULSES (B):? 07/10, B/L.?PT PULSES (B):? 07/10, B/L.?CAPILLARY FILL TIME:?3 secs. per digit, B/L.?TROPHIC CONDITION-TEXTURE/ELASTICITY/TURGOR/HAIR GROWTH (B):?normal, B/L.?TEMPERTURE GRADIENT (C):?warm to cool, proximal to distal, B/L.?PIGMENTATION:?normal, B/L.?EDEMA (C):? 07/10, B/L, Feet, Ankle(s), Leg(s).?Dermatologic: ?SKIN FINDINGS:? Skin exam reveals Keratotic lesion(s) located at, Plantar, Heel(s), B/L , Skin shows sign(s) of, dryness, scaling, in a stocking fashion, no fissure(s) present, B/L.?Orthopedic: ?MUSCLE STRENGTH:?5/5 all groups in a symmetrical fashion , B/L.?GAIT ABNORMALITY:?pronated, abducted, B/L.?Nails: ?NAILS are:? Elongated, overgrown, dystrophic, lytic, greater than 3mm thick, discolored and friable with crumbly malodorous subungual debris, with dull to no pain on palpation due to neuropathy, 1-5 B/L.? Assessment: * Assessment: 1.?Type 1 diabetes mellitus with diabetic polyneuropathy - E10.42 (Primary)???2.?Plantar fascial fibromatosis - M72.2???3.?Pain in left foot - M79.672???4.?Pain in right foot - M79.671???5.?Primary osteoarthritis, left ankle and foot - M19.072???6.?Primary osteoarthritis, right ankle and foot - M19.071???7.?Tinea unguium - B35.1???8.?Pain in right toe(s) - M79.674???9.?Pain in left toe(s) - M79.675???10.?Xerosis cutis - L85.3??? Plan: * Treatment: * Procedures:?Debride Nail 6-10:?Nail debridement?Nail debridement performed extensively to reduce/remove overall nail length and girth, subungual debris, and necrotic tissue, by manual and electrical means with use of a nail nipper and/or dremel, to more viable healthy nail plate or bed tissue 6-10. Silver nitrate used for any petechial bleeding as necessary. Patient chooses, no pharmaceutical tx ([id number]).?Keratoma Treatment:?Parring or Cutting of Benign Hyperkeratotic Lesion(s)?34065 (2-4 Lesions) - The Benign hyperkeratotic lesions, as described above were pared, and/or cut utilizing a sterile #15 blade, tissue nippers, and/or dremel.? * Procedure Codes:?38611 DEBRI DE NAIL, 6 OR MORE, Modifiers: XS , 39237 TRIM SKIN LESIONS, 2 TO 4, Modifiers: XS * Follow Up:?4 Months * Images: * The named appointment provid er may or may not be the originator of this progress note, and it is not deemed complete until electronically signed by the appointment provider. Sign off status: Pending * Provider:Loretta Zaragoza DPM Date:? 024 Generated for Patricia causey/Fredy/Galesmitting on:?09/24/2024 04:06 PM EDT History and Physical Notes * HPI (History of Present Illness) Category Sub-Category Detail Notes Category Not es Painful Nails Pt States Last PCP Visit: Date:: 12/16/2022 At Risk footcare Pt States Last PCP Visit: Date: 3 Foot Pain Aggrevated: any pressure, standing Onset/Cause: unknown Course: improved Duration: several years Nature: sharp, aching Treatments: ice, nightsplint, hogan s complied with new dm shoes and likes them Location Top, Bottom, Forefoo t, Midfoot, B/L Examination Category Sub-Category Detail Notes Category Not es Neuroma Pain PALPATION: No interspace pain noted on palpation Neurological SENSORY: Neurological exa m demonstrates pop mey 4/5th -cub and pop mey ankle and plantar fascia midsection mey , 5.07 monofilament test performed at plantar aspects of 5 varied sites per foot shows sensation, reduced , B/L BABINSKI REFLEX: absent TINEL'S COMPRESSION: Negative tarsal jodie andre, laura pedis, and medial calcaneal nerves B/L Dermatologic SKIN FINDINGS: Skin exam reveal s Keratotic lesion(s) located at, Plantar, Heel(s), B/L , Skin shows sign(s) of, dryness, scaling, in a stocking fashion, no fissure(s) present, B/L Orthopedic GAIT ABNORMALITY: pronated, abducted, B/L MUSCLE STRENGTH: 5/5 all groups in a symmetrical fashion , B/L General Examination GENERAL APPEARANCE: pleasant , alert, well nourished, well developed, well hydrated, with good attention to hygene/body habitus, and in no acute distress ORIENTED: person,place, and ti me Ophthalmology Referral DIABETES EYE EXAM Diabeti c Retinopathy Screening:: Yes 06/2023 Vascular DP PULSES (B): 07/10, B/L PT PULSES (B): 07/10, B/L CAPILLARY FILL TIME: 3 secs. per digit, B/L TEMPERTURE GRADIENT (C): warm to cool, p roximal to distal, B/L TROPHIC CONDITION-TEXTURE/ELASTICITY/TURGOR/HAIR GROWTH (B): normal, B/L EDEMA (C): 07/10, B/L, Feet, Ankl e(s), Leg(s) PIGMENTATION: normal, B/L Nails NAILS are: Elongated, overg rown, dystrophic, lytic, greater than 3mm thick, discolored and friable with crumbly malodorous subungual debris, with dull to no pain on palpation due to neuropathy, 1-5 B/L
--- OUTSIDE RECORDS SUMMARY | 2024-09-24 16:07 | XMS_ITS | Patient Health Record ---
Author Organization [facility] Address [address] [place] [address] Care Team Providers Care Cuff Setter Name Role Phone Josefa Giordano MD Primary Care Provider Jacob Kimble Unavailable [phone] Allergies No Known Allergies Reason For Referral No Information Medications Medication SIG (Take, Route, Frequency, Duration) Notes Start Date End Date Status Simvastatin 40 MG 1 tablet in the even ing Orally Once a day Active Omeprazole 20 MG 1 capsule Orally Onc e a day 08/29/2016 Active Trulicity 0.75 MG/0.5ML ADMINISTER 0.75M G UNDER THE SKIN EVERY WEEK Subcutaneous for 84 Active Vitamin D Active HumaLOG 100units Act shanique Lantus 100units Acti ve Calcium + D3 600-200 MG-UNIT 1 tablet with a meal Orally Once a day Active Tylenol Extra Strength 500mg Active metFORMIN HCl 500 MG 1 tablet with meals Orally Once a day Active Lisinopril 10 MG 1 tablet Orally Once a day Active Mapap 500 MG 2 capsules as needed Orally TID Active Immunizations Vaccine Route Administration Date Status Comme nts Influenza Unknown 03/07/2018 Administered Influenza Unknown 03/24/2021 Administered Problems Problem Type SNOMED Code ICD Code Onset Dates Problem Status W/U Status Risk Notes Problem Esophageal reflux (562210500) Esophageal reflux (K21.9) Active confirmed Problem 004247846 Gastro-esophagea l reflux disease without esophagitis (K21.9) Active confirmed Problem 368195862 Encounter for screening for malignant neoplasm of colon (Z12.11) Active confirmed Problem Screening for malignant neoplasm of rectum (939590262) Encounter for screening for malignant neoplasm of rectum (Z12.12) Active confirmed Problem 597507125 Gastroesophageal reflux disease without esophagitis (K21.9) Active confirmed Problem 90096103 Preprocedural examination (Z01.818) Active confirmed Problem 350114950 Barretts esophag us without dysplasia (K22.70) Active confirmed Problem 802639035 Abdominal pain, left upper quadrant (R10.12) Active confirmed Problem 792515539 H/O long-term treatment with high-risk medication (Z92.29) Active confirmed Problem 265624354 Encounter for long-term use of non-steroidal anti-inflammatory medication (Z79.1) Active confirmed Problem 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 pylori infect ion (A04.8) Active confirmed Plan Of Treatment Pending Test Test Name Order Date Pathology 03/01/2022 Future Test Test Name Order Date UPPER GI ENDOSCOPY 05/26/2015 COLONOSCOPY 05/26/2015 UPPER GI ENDOSCOPY 11/12/2018 UPPER GI ENDOSCOPY 01/03/2022 Insurance Providers Payer Name Payer Address Payer Phone Subscriber Number Group Number Insured Name Patient Relationship to Insured Coverage Start Date Coverage End Date [facility] [address] [address] [place] [address] [phone] [id number] JANES BLAND Self - patient is the insured MEDICAID OF [facility] [address] [place] [address] [phone] [id number] JANES BLAND Self - patient is the insured [place] [address] [place] [address] [id number] JANES BLAND Self - patient is the insured Medical (General) History Medical History History ICD Code IDDM Hypertension Hyperlipidemia Obesity GERD Fibromyalgia Sleep apnea--uses a CPAP machine Denies TX,CVA,Lung disease,renal disease Neg. colonoscopy in 05/[address] Brown, except for internal and external hemorrhoids EGD 08/2015--small hiatal her itzel, small area of Silva's esophagus without dysplasia, gastritis and H. pylori infection, small duodenal bulb ulcer--Rx'd with Biaxin, Amoxicillen, and Omeprazole Screening Colonoscopy in 08/08 016--negative except for sigmoid diverticulosis and small internal hemorrhoids EGD 02/2019-small hiatal edu ia, no evidence of any ulcer disease or esophagitis, biopsies from the gastroesophageal junction were negative for Silva's esophagus and gastric biopsies were negative for H. pylori Surgical History Surgery Date(Month/Year) Cholecystectomy 11/2002 Carpal tunnel release--left hand 010 Tubal ligation 1977 C-sections X 2 Left rotator cuff decompression 2005 LIZET 08/2013 Both eyes
--- OUTSIDE RECORDS SUMMARY | 2024-09-24 16:07 | XMS_ITS | Patient Health Record ---
Author [facility] Address [address] [place] [address] Care Team Providers Care Traffic Operations Engineer Name Role Phone Josefa Giordano MD Primary Care Provider Sandee Ordaz Unavailable [phone] Mendoza Zaragoza Unavailable [phone] Allergies Allergen (clinical drug ingredient) Drug/Non Drug Allergy documented on EMR Reaction Allergy Type Onset Date Status apple allergenic extract Apple (Diagnostic) Unknown Drug Allergy Active Reason For Referral No Information Medications Medication SIG (Take, Route, Frequency, Duration) Notes Start Date End Date Status [place] 3 Active Omeprazole 20 MG 1 capsule 30 minutes before morning meal Orally Once a day for 30 day(s) Active metFORMIN HCl 1000 MG 1 tablet with a me al Orally Once a day for 30 day(s) Active Olmesartan Medoxomil 5 MG 1 tablet Orally Once a day for 30 day(s) Active Refresh Active Extra Depth Diabetic Shoes with 3 Pair Custom heat-molded multi-density innersoles for 1 year Dx: 03/23/2024 N ot-Taking Extra Depth Orthopedic Shoes (1 Pair) with Customized Heat Molded Multidensity Innersoles (3 Pair) as directed Dx: NIDDM/Polyneuropathy (E11.42), Hammertoe Foot Deformity (M20.41,M20.42), Preulcerative Skin Lesion(s) (L85.1 07/23/2024 Active metroNIDAZOLE 0.75 % 1 application Exter shaniqua Twice a day Active Lidoderm 5 % 1 patch remove after 12 hours Externally Once a day for 30 days 03/23/2024 Not-Taking Voltaren 1 % as directed Externally Not-Taking Trulicity 0.75 MG/0.5ML as directed Subcutaneous Not-Taking Gabapentin 100 MG 1 capsule Orally Onc e a day for 30 day(s) Active Vitamin D Active Docusate Sodium 100 MG 1 capsule as need ed Orally Once a day for 30 day(s) Active Lantus SoloStar Acti ve Insulin Lispro Activ e Night Splint AFO - L1930 as directed Not-Taking Acetaminophen Extra Strength 500 MG 1 tablet as needed Orally every 6 hrs Active Atorvastatin Calcium 80 MG 1 tablet Orally Once a day for 30 day(s) Active Extra Depth Diabetic Shoes with 3 Pair Custom heat-molded multi-density innersoles for 1 year Dx: N ot-Taking Cetirizine HCl 10 MG 1 tablet Orally Onc e a day for 30 day(s) Active Physical Therapy . . . 2-3x/week for 3- 4 weeks Not-Taking Calcium Active Social History Tobacco Use: Social History Observation Description Date Details (start date - stop date) Never Smoker NA - NA Alcohol Screen Question Answer Notes Did you have a drink containing alcohol in the p ast year? No Points 0 Interpretation Negative Tobacco use other than smoking: Question Answer Notes Are you an other tobacco user? No Tobacco Control (Standard) Question Answer Notes Tobacco use: Nonsmoker Additional Findings: Tobacco non-user Current no nsmoker Problems Problem Type SNOMED Code ICD Code Onset Dates Problem Status W/U Status Risk Notes Problem Acquired hammer toe of right foot (0238179346785457 ) Other hammer toe(s) (acquired), right foot (M20.41) Active confirmed Problem Acquired hammer toe of left foot (5414345347618723 ) Other hammer toe(s) (acquired), left foot (M20.42) Active confirmed Problem Polyneuropathy due to type 2 diabetes mellitus (582427691) Type 2 diabetes mellitus with diabetic polyneuropathy (E11.42) Active confirmed Vital Signs Blood pressure diastolic 67 mm Hg 07/23/2024 Height 4ft in 07/23/2024 Blood pressure systolic 124 mm Hg 07/23/2024 Weight 220 lbs 07/23/2024 BMI 67.13 kg/m2 07/23/2024 Procedures Procedure Date Ordered Date Performed Result Body Sit e 59727-UBUJJCZ NAIL, 6 OR MORE 07/23/2024 N/A 71206-JHXD SKIN LESIONS, OVER 4 07/23/2024 N/A Encounters Encounter Location Date Provider Diagnosis [address] [address] 10/28/2023 Mendoza Zaragoza Type 1 diabetes mellitus with diabetic polyneuropathy E10.42 ; Plantar fascial fibromatosis M72.2 ; Pain in left foot M79.672 ; Pain in right foot M79.671 ; Primary osteoarthritis, left ankle and foot M19.072 ; Primary osteoarthritis, right ankle and foot M19.071 ; Tinea unguium B35.1 ; Pain in right toe(s) M79.674 ; Pain in left toe(s) M79.675 and Xerosis cutis L85.[address] [address] 03/23/2024 Mendoza Zaragoza Type 1 diabetes mellitus with diabetic polyneuropathy E10.42 ; Plantar fascial fibromatosis M72.2 ; Pain in left foot M79.672 ; Pain in right foot M79.671 ; Primary osteoarthritis, left ankle and foot M19.072 ; Primary osteoarthritis, right ankle and foot M19.071 ; Tinea unguium B35.1 ; Pain in right toe(s) M79.674 ; Pain in left toe(s) M79.675 and Xerosis cutis L85.[address] [address] 07/23/2024 Sandee Chen Other hammer toe(s) (acquired), right foot M20.41 ; Other hammer toe(s) (acquired), left foot M20.42 ; Type 2 diabetes mellitus with diabetic polyneuropathy E11.42 and Tinea unguium B35.1 Assessments Encounter Date Diagnosis (ICD Code) Assessment Notes Treatment Notes Treatment Clinical Notes Section Notes 10/28/2023 Type 1 diabetes mellitus with diabetic polyneuropathy (ICD-10 - E10.42) 03/23/2024 Type 1 diabetes mellitus with diabetic polyneuropathy (ICD-10 - E10.42) 07/23/2024 Other hammer toe(s) (acquired), right foot (ICD-10 - M20.41) Patient Educated with: DIABETIC FOOT CARE INSTRUCTIONS. pdf (DIABETIC FOOT CARE INSTRUCTIONS. pdf) 07/23/2024 Other hammer toe(s) (acquired), left foot (ICD-10 - M20.42) 07/23/2024 Type 2 diabetes mellitus with diabetic polyneuropathy (ICD-10 - E11.42) 10/28/2023 Plantar fascial fibromatosis (ICD-10 - M72.2) 03/23/2024 Plantar fascial fibromatosis (ICD-10 - M72.2) 07/23/2024 Tinea unguium (ICD-10 - B35.1) 03/23/2024 Pain in left foot (ICD-10 - M79.672) 10/28/2023 Pain in left foot (ICD-10 - M79.672) 10/28/2023 Pain in right foot (ICD-10 - M79.671) 03/23/2024 Pain in right foot (ICD-10 - M79.671) 03/23/2024 Primary osteoarthritis, left ankle and foot (ICD-10 - M19.072) 10/28/2023 Primary osteoarthritis, left ankle and foot (ICD-10 - M19.072) 10/28/2023 Primary osteoarthritis, right ankle and foot (ICD-10 - M19.071) 03/23/2024 Primary osteoarthritis, right ankle and foot (ICD-10 - M19.071) 03/23/2024 Tinea unguium (ICD-10 - B35.1) 10/28/2023 Tinea unguium (ICD-10 - B35.1) 10/28/2023 Pain in right toe(s) (ICD-10 - M79.674) 03/23/2024 Pain in right toe(s) (ICD-10 - M79.674) 03/23/2024 Pain in left toe(s) (ICD-10 - M79.675) 10/28/2023 Pain in left toe(s) (ICD-10 - M79.675) 10/28/2023 Xerosis cutis (ICD-10 - L85.3) 03/23/2024 Xerosis cutis (ICD-10 - L85.3) Plan Of Treatment Pending Test Test Name Order Date X ray : Foot, left 3V 08/20/2022 X ray : Foot, right 3V 08/20/2022 74460-NBEUTVV NAIL, 6 OR MORE 07/23/2024 08439-OUIR SKIN LESIONS, OVER 4 07/23/19 77285-BIYF SKIN LESIONS, 2 TO 4 10/12/19 Next Appt Details Provider Name:Sandee rodriguez, 11/05/2024 12:00:00 PM, [address] [facility], [address], [place], [address], Insurance Providers Payer Name Payer Address Payer Phone Subscriber Number Group Number Insured Name Patient Relationship to Insured Coverage Start Date Coverage End Date [id number] [address] [address] [place] [phone] [id number] Emily King Self - patient is the insured [employer] [address] [facility] [address] [id number] Emily King Self - patient is the insured Medical (General) History Medical History History ICD Code Arthritis asthma Back,Hip,and Knee pain type II diabetes Fibromyalgia High blood pressure Surgical History Surgery Date(Month/Year) cataract removal 12/2021
--- OUTSIDE RECORDS SUMMARY | 2024-09-24 16:07 | XMS_ITS ---
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 Name Role Phone Josefa Giordano MD Primary Care Provider Sandee Ordaz Unavailable [phone] Allergies Allergen (clinical drug ingredient) Drug/Non Drug Allergy documented on EMR Reaction Allergy Type Onset Date Status apple allergenic extract Apple (Diagnostic) Unknown Drug Allergy Active REASON FOR VISIT Toe Irritation, At Risk Footcare Medications Medication SIG (Take, Route, Frequency, Duration) Notes Start Date End Date Status Hixson 3 Active Omeprazole 20 MG 1 capsule 30 minutes before morning meal Orally Once a day for 30 day(s) Active metFORMIN HCl 1000 MG 1 tablet with a me al Orally Once a day for 30 day(s) Active Olmesartan Medoxomil 5 MG 1 tablet Orally Once a day for 30 day(s) Active Refresh Active Extra Depth Orthopedic Shoes (1 Pair) with Customized Heat Molded Multidensity Innersoles (3 Pair) as directed Dx: NIDDM/Polyneuropathy (E11.42), Hammertoe Foot Deformity (M20.41,M20.42), Preulcerative Skin Lesion(s) (L85.1 07/23/2024 Active Trulicity 0.75 MG/0.5ML as directed Subcutaneous Not-Taking Vitamin D Active Extra Depth Diabetic Shoes with 3 Pair Custom heat-molded multi-density innersoles for 1 year Dx: N ot-Taking Physical Therapy . . . 2-3x/week for 3- 4 weeks Not-Taking Extra Depth Diabetic Shoes with 3 Pair Custom heat-molded multi-density innersoles for 1 year Dx: 03/23/2024 N ot-Taking metroNIDAZOLE 0.75 % 1 application Exter shaniqua Twice a day Active Lidoderm 5 % 1 patch remove after 12 hours Externally Once a day for 30 days 03/23/2024 Not-Taking Voltaren 1 % as directed Externally Not-Taking Night Splint AFO - L1930 as directed Not-Taking Gabapentin 100 MG 1 capsule Orally Onc e a day for 30 day(s) Active Docusate Sodium 100 MG 1 capsule as need ed Orally Once a day for 30 day(s) Active Lantus SoloStar Acti ve Insulin Lispro Activ e Cetirizine HCl 10 MG 1 tablet Orally Onc e a day for 30 day(s) Active Acetaminophen Extra Strength 500 MG 1 tablet as needed Orally every 6 hrs Active Atorvastatin Calcium 80 MG 1 tablet Orally Once a day for 30 day(s) Active Calcium Active Social History Tobacco Use: Social [...] Problem Acquired hammer toe of right foot (3749409401213507 ) Other hammer toe(s) (acquired), right foot (M20.41) Active confirmed Problem Acquired hammer toe of left foot (4140314265127208 ) Other hammer toe(s) (acquired), left foot (M20.42) Active confirmed Problem Polyneuropathy due to type 2 diabetes mellitus (716208980) Type 2 diabetes mellitus with diabetic polyneuropathy (E11.42) Active confirmed Vital Signs Height 4ft in 07/23/2024 Weight 220 lbs 07/23/2024 BMI 67.13 kg/m2 07/23/2024 Blood pressure systolic 124 mm Hg 07/23/19 25 Blood pressure diastolic 67 mm Hg 025 Procedures Procedure Date Ordered Date Performed Result Body Sit e 44593-ZENAPQB NAIL, 6 OR MORE 07/23/2024 N/A 14410-COIF SKIN LESIONS, OVER 4 07/23/2024 N/A Encounters Encounter Location Date Provider Diagnosis [facility] [address] [place] [address] [address] [place] [address] 07/23/2024 Sandee Chen Other hammer toe(s) (acquired), right foot M20.41 ; Other hammer toe(s) (acquired), left foot M20.42 ; Type 2 diabetes mellitus with diabetic polyneuropathy E11.42 and Tinea unguium B35.1 Assessments Encounter Date Diagnosis (ICD Code) Assessment Notes Treatment Notes Treatment Clinical Notes Section Notes 07/23/2024 Other hammer toe(s) (acquired), right foot (ICD-10 - M20.41) Patient Educated with: DIABETIC FOOT CARE INSTRUCTIONS. pdf (DIABETIC FOOT CARE INSTRUCTIONS. pdf) 07/23/2024 Other hammer toe(s) (acquired), left foot (ICD-10 - M20.42) 07/23/2024 Type 2 diabetes mellitus with diabetic polyneuropathy (ICD-10 - E11.42) 07/23/2024 Tinea unguium (ICD-10 - B35.1) Plan Of Treatment Medication Medication Name Sig Start Date Stop Date Notes Extra Depth Orthopedic Shoes (1 Pair) with Customized Heat Molded Multidensity Innersoles (3 Pair) as directed Dx: NIDDM/Polyneuropathy (E11.42), Hammertoe Foot Deformity (M20.41,M20.42), Preulcerative Skin Lesion(s) (L85.1 07/23/2024 Treatment Notes Assessment Notes Other hammer toe(s) (acquired), right fo ot Patient Educated with: DIABETIC FOOT CARE INSTRUCTIONS.pdf (DIABETIC FOOT CARE INSTRUCTIONS.pdf) Pending Test Test Name Order Date 38591-VHEEAFM NAIL, 6 OR MORE 07/23/2024 36176-VAVR SKIN LESIONS, OVER 4 07/23/19 25 Next Appt Details Follow Up: 3 Months, Reason: Provider Name:Sandee Whitguido jennifer, 11/05/2024 12:00:00 PM, [address] [facility], [address] [facility], [place], [address], Procedure Notes * Category Sub-Category Detail Notes Debride Nail 6-10 Nail debridement Due to the cl inical pathology outlined in the exam findings, performance of this nail treatment is medically necessary as its management by an unskilled/untrained nonprofessional would put this patients foot and overall health at risk. Therefore, debridement to affected nail(s), as described in exam ( TA, T1, T2, T3, T4, T5, T6, T7, T8, T9, ), was performed exclusively by the physician of record to reduce/remove overall nail length, girth, thickness, subungual debris, and necrotic tissue, by manual and/or electrical means through the use of a nail nipper and/or dremel-type tankage grinder operator, to a more viable healthy nail plate or bed tissue 6-10 nails in total. Silver nitrate was used for any petechial bleeding as necessary. Definitive antifungal treatment options, both pharmaceutical and surgical, have been reviewed and discussed with the patient. The patient solely prefers the use of intermittent/as needed professional debridement services for their nail condition and understands the need for additional periodic treatments to maintain effectiveness in symptomatic relief - 29047 Keratoma Treatment Parring or Cutting o f Benign Hyperkeratotic Lesion(s) (-57) More than 4 Lesions - Due to the at risk nature of the patients medical condition as documented in the exam findings, performance of this keratoderma treatment is medically necessary as its management by an unskilled/untrained nonprofessional would put this patients foot and overall health at risk. Therefore, the benign hyperkeratotic lesions, (6_ ) in total, locations as stated and described in the exam (sub 1st and 5th MPJ B/L, plantar heels B/L ), were pared, and/or cut utilizing a sterile 15 blade, tissue nippers, and/or power dremel instrumentation by the physician of record - 09414 Progress Notes * Emily KINGDOB:1950 (73 yo F)Acc No.[id number]:07/23/2024 Progress Note Patient:?CHRISTINE Emily Provider:?Sandee Chen DPM :1950???Age:73 Y???Sex:Female D ate:07/23/2024 Address:[address] [place] [address] Justyna hugo [facility], [id number] Pcp:Josefa Giordano MD Subjective: * Chief Complaints: * ???Toe IrritationAt Risk Tulio tcare * HPI: ???Toe pain:?Location:?B/L feet.?Duration:?several years.?Course:?worse.?Aggravated by:?shoes, any pressure.?Treatments:?change in shoes.?At Risk footcare:?Pt States Last PCP Visit:?Date?04/21/2024 * ROS:?General/Constitutional:?Nausea?denies.?Vomiting?denies.?Hunger Thirst?denies.?Loss appetite?denies.?Chills?denies.?Fatigue?denies.?Fever?denies.?Night Sweats?denies.?Unexplained weight loss?denies.?Unexplained weight gain?denies.?HEENTM:?Dentures?admits.?Dizziness?denies.?Glasses/contacts?admits.?Retinopathy?den ies.?Blurred/double vision?denies.?TMJ?denies.?Discharge/drainage?denies.?Implants?denies.?Sore throat?denies.?Dental implants?denies.?Hard of hearing ?denies.?Difficulty chewing/swallowing/speaking?denies.?Nose bleeds?denies.?Sore mouth?denies.?Respiratory:?On O xygen?denies.?Pneumonia/pleurisy?denies.?Bronchitis?denies.?Emphysema?denies.?Co ughing?denies.?Cough blood?denies.?Shortness of breath?denies.?Wheezing?denies.?Cardiovascular:?Pacemaker?denies.?MVP?denies.?WPW?denies.?CHF?denies.?Heart attack?denies.?Septal defect?denies.?Rapid beat?denies.?Chest pain ?denies.?Atrial Fib.?denies.?Murmur/Palpitations?denies.?Gastrointestinal:?Hemorrhoids?denies.?Stomach/Abdominal pain?denies.?Dark blood stool?denies.?Irritable bowel ?denies.?Constipation?denies.?Diarrhea?denies.?Hematology:?Swelling?denies.?Clots?denies.?Varicose Veins?admits.?Bruising?denies.?Bleeding problem?denies.?Genitourinary:?Blood urine?denies.?Frequent/Painfu/urination/bladder control?denies.?Kidney stones?denies.?Infection (UTI)?denies.?Nephropathy?denies.?sex trans dis (STD)?denies.?Prostate?denies.?Musculoskeletal:?Hammertoes?denies.?Bunions?denies.?Back Pain?denies.?Muscle Cramps/ Resting?admits.?Muscle cramps / walking?denies.?Generalized aches and pains?denies.?Weakness?denies.?Integ.:?Foster?denies.?Scars?denies.?Corns/calluses?denies.?Ingrown nails?denies.?Painful nails?denies.?Open Sores?denies.?Rashes?denies.?Neurologic:?Difficulty sleeping?admits.?Brain disorder?denies.?Numbness?admits.?Balance t rouble?denies.?Confusion?denies.?Fainting/blackouts?denies.?Tingling?admits.?Stiven mors?denies.? * Medical History:? * Surgical History:?cataract r emoval 12/2021 * Hospitalization/Major Diagno stic Procedure:?No Hospitalization History. * Family History:?Mother: dece ased, diagnosed with Diabetic - NIDDM, Unspecified essential hypertension, Family history of arthritis.?Father: , diagnosed with Family history of arthritis.?Siblings: foot problems, diagnosed with Other malignant neoplasm of unspecified site, Unspecified essential hypertension, Family history of arthritis.?Spouse: alive.? * Social History:?Tobacco Use:?Tobacco use other than smoking?Are you an other tobacco user??No ?Tobacco Control (Standard)?Tobacco use:?Nonsmoker ?Additional Findings: Tobacco non-user?Current nonsmoker ???Drugs/Alcohol:?Drugs?Have you used drugs other than those for medical reasons in the past 12 months??No ?Alcohol Screen?Did you have a drink containing alcohol in the past year??No ?Points?0 ?Interpretation?Negative ???Miscellaneous:?Caffeine: yes. ?Children: yes. ?Marital status: . ?Occupation: Retired. * Medications:?TakingVitamin D Refresh Omeprazole 20 MG Capsule Delayed Release 1 capsule 30 minutes before morning meal Orally Once a day Hixson 3 Olmesartan Medoxomil 5 MG Tablet 1 tablet Orally Once a day metFORMIN HCl 1000 MG Tablet 1 tablet with a meal Orally Once a day Atorvastatin Calcium 80 MG Tablet 1 tablet Orally Once a day Acetaminophen Extra Strength 500 MG Tablet 1 tablet as needed Orally every 6 hrs Calcium Cetirizine HCl 10 MG Tablet 1 tablet Orally Once a day Docusate Sodium 100 MG Capsule 1 capsule as needed Orally Once a day Gabapentin 100 MG Capsule 1 capsule Orally Once a day Insulin Lispro Lantus SoloStar metroNIDAZOLE 0.75 % Gel 1 application Externally Twice a day Taking Vitamin D Taking Refresh Taking Omeprazole 20 MG Capsule Delayed Release 1 capsule 30 minutes before morning meal Orally Once a day Taking Hixson 3 Taking Olmesartan Medoxomil 5 MG Tablet 1 tablet Orally Once a day Taking metFORMIN HCl 1000 MG Tablet 1 tablet with a meal Orally Once a day Taking Atorvastatin Calcium 80 MG Tablet 1 tablet Orally Once a day Taking Acetaminophen Extra Strength 500 MG Tablet 1 tablet as needed Orally every 6 hrs Taking Calcium Taking Cetirizine HCl 10 MG Tablet 1 tablet Orally Once a day Taking Docusate Sodium 100 MG Capsule 1 capsule as needed Orally Once a day Taking Gabapentin 100 MG Capsule 1 capsule Orally Once a day Taking Insulin Lispro Taking Lantus SoloStar Taking metroNIDAZOLE 0.75 % Gel 1 application Externally Twice a day Not- Taking/PRNNight Splint AFO - L1930 as directed Physical Therapy . . . . 2-3x/week Extra Depth Diabetic Shoes with 3 Pair Custom heat-molded multi-density innersoles for 1 year Dx: Trulicity 0.75 MG/0.5ML Solution Pen-injector as directed Subcutaneous Extra Depth Diabetic Shoes with 3 Pair Custom heat-molded multi-density innersoles for 1 year Dx: Voltaren 1 % Gel as directed Externally Lidoderm 5 % Patch 1 patch remove after 12 hours Externally Once a day Medication List reviewed and reconciled with the patientNot-Taking/PRN Night Splint AFO - L1930 as directed Not-Taking/PRN Physical Therapy . . . . 2-3x/week Not-Taking/PRN Extra Depth Diabetic Shoes with 3 Pair Custom heat-molded multi-density innersoles for 1 year Dx: Not-Taking/PRN Trulicity 0.75 MG/0.5ML Solution Pen-injector as directed Subcutaneous Not-Taking/PRN Extra Depth Diabetic Shoes with 3 Pair Custom heat-molded multi-density innersoles for 1 year Dx: Not-Taking/PRN Voltaren 1 % Gel as directed Externally Not-Taking/PRN Lidoderm 5 % Patch 1 patch remove after 12 hours Externally Once a day Medication List reviewed and reconciled with the patient * Allergies:?Apple (Diagnostic )yes[Allergies Verified] Objective: * Vitals:?Ht: 4ft, Wt:220, BMI :67.13, Shoe size: 6.5, BP:124/67mm Hg, BS: did not test, Ht-cm: 121.92 cm, Wt-k.79 kg. * Examination: ???CQM Exceptions:: ?Hemoglobin A1c not performed?Reason:?No reason specified?Ophthalmology Referral: ?DIABETES EYE EXAM?Procedure Performed:?Yes ?Date of Exam Performed?03/15/2024?Orthopedic: ?MUSCLE STRENGTH:?5/5 all groups in a symmetrical fashion, B/L.?DIGITAL DEFORMITIES:?Digital contracture, PIPJ, 2-5 B/L, incompl-reducible to push-up test, no over, nor underlapping,?there is?evidence of shoe producing skin irritation.?FOOTWEAR:?worn, non-supportive, shoe gear properties exacerbate patient's foot/toe deformity.?General Examination: ?GENERAL APPEARANCE:?Reveals a pleasant, alert, well nourished, well- developed, well hydrated individual, who demonstrates proper attention to hygiene/body habitus, and is in no acute distress, Pt serves as own historian for office visit today.?ORIENTED:?person, place, and time.?FOOT EXAM:?Lower Extremity Neurological Exam performed:?Yes Date ?Visual exam of foot performed:?Yes ?Footwear Evaluation?Footwear Evaluation performed:?Yes?Neurological: ?SENSORY:? Neurological exam demonstrates, reduced light touch sensation, reduced sharp/dull pin prick discrimination , B/L, 5.07 monofilament test performed at plantar aspects of 5 varied sites per foot shows sensation, reduced , B/L.?Nails: ?NAILS are:?Elongated, overgrown, dystrophic, lytic, greater than 3mm thick, discolored and friable with crumbly malodorous subungual debris, TA, T1, T2, T3, T4, T5, T6, T7, T8, T9.?Dermatologic: ?SKIN FINDINGS:?Skin exam reveals Keratotic lesion(s) located at sub 1st and 5th? MPJ B/L, plantar heels B/L.?Vascular: ?DP PULSES (B):?1, B/L.?PT PULSES (B):? 1, B/L.?CAPILLARY FILL TIME:?3 secs. per digit, B/L.?TROPHIC CONDITION-TEXTURE/ELASTICITY/TURGOR/HAIR GROWTH (B):?normal, B/L.?TEMPERTURE GRADIENT (C):?warm to cool, proximal to distal, B/L.?PIGMENTATION:?normal, B/L.?EDEMA (C):? 1, B/L, Feet, Ankle(s), Leg(s).? Assessment: * Assessment: 1.?Other hammer toe(s) (acqu ired), right foot - M20.41 (Primary)???Specify :Chronic problem, Worse (4),Rx Management (4)???2.?Other hammer toe(s) (acquired), left foot - M20.42???Specify :Chronic problem, Worse (4),Rx Management (4)???3.?Type 2 diabetes mellitus with diabetic polyneuropathy - E11.42???4.?Tinea unguium - B35.1??? Plan: * Treatment: 2.?Type 2 diabetes mellitus with diabetic polyneuropathy?Procedure: 99434-AAFHODC NAIL, 6 OR MORE ?Procedure: 72673-QKII SKIN LESIONS, OVER 4 * Procedures:?Debride Nail 6-10:?Nail debridement?Due to the clinical pathology outlined in the exam findings, performance of this nail treatment is medically necessary as its management by an unskilled/untrained nonprofessional would put this patients foot and overall health at risk. Therefore, debridement to affected nail(s), as described in exam ( TA, T1, T2, T3, T4, T5, T6, T7, T8, T9, ), was performed exclusively by the physician of record to reduce/remove overall nail length, girth, thickness, subungual debris, and necrotic tissue, by manual and/or electrical means through the use of a nail nipper and/or dremel-type tankage grinder operator, to a more viable healthy nail plate or bed tissue 6- 10 nails in total. Silver nitrate was used for any petechial bleeding as necessary. Definitive antifungal treatment options, both pharmaceutical and surgical, have been reviewed and discussed with the patient. The patient solely prefers the use of intermittent/as needed professional debridement services for their nail condition and understands the need for additional periodic treatments to maintain effectiveness in symptomatic relief - 01236.?Keratoma Treatment:?Parring or Cutting of Benign Hyperkeratotic Lesion(s)?(-57) More than 4 Lesions - Due to the at risk nature of the patients medical condition as documented in the exam findings, performance of this keratoderma treatment is medically necessary as its management by an unskilled/untrained nonprofessional would put this patients foot and overall health at risk. Therefore, the benign hyperkeratotic lesions, (6_ ) in total, locations as stated and described in the exam (sub 1st and 5th? MPJ B/L, plantar heels B/L ), were pared, and/or cut utilizing a sterile 15 blade, tissue nippers, and/or power dremel instrumentation by the physician of record - 16025.? * Procedure Codes:?14811 DEBRI DE NAIL, 6 OR MORE, Modifiers: XS 54318 TRIM SKIN LESIONS, OVER 4, Modifiers: XS * Preventive Medicine:? ??Counseling:?Discussion:?-04: Office or other outpatient visit for the evaluation and management of a new patient, which required a medically appropriate history and/or examination and MODERATE level of DECISION MAKING for: 1 OR MORE CHRONIC PROBLEM(S) THATS WORSENING, 2 STABLE CHRONIC PROBLEMS, A NEWLY DIAGNOSED PROBLEM WITH UNCERTAIN PROGNOSIS, AN ACUTE COMPLICATED INJURY WITH MULTIPLE TREATMENT OPTIONS, OR AN ACUTE PROBLEM WITH ACCOMPANYING SYSTEMIC SYMPTOMS, THAT POSE(S) A MODERATE RISK OF MORBIDITY. THIS CONDITION MAY ALSO INCLUDE RX DRUG MANAGEMENT, OR A DECISON FOR MINOR SURGERY. The visit on the day of the encounter encompassed interpreting the data and educating the patient as to the nature of their condition, treatment options available according to their individual PMH, meds, allergies, and overall health/living conditions, as well as any potential risks or complications that may occur from a failure to adhere to, and participate in, the recommended course of therapy. The discussion included a complete verbal, and/or written explanation of the examination results, any x-rays taken, the proposed diagnosis, and outline of the treatment plan. A schedule for future care needs was also explained. The patient verbalized an understanding of the instructions at this time and agreed to be an active participant in their treatment. If the patient should think of any questions or concerns after the visit, I have encouraged the patient to call the office.?Digital Surgery:?Digital surgery was discussed with the patient, We elected to try conservative treatment at the present time, due to the patients medical history and increased asssociated post-operative risks.?Digital Treatment:?HT- I explained to the patient the possible etiologies of Hammertoes, including genetics/foot type/shoegear/activity level/exercise routine and the risks/benefits of all the different treatment options for their pain including: No treatment at all, Rest, Ice, New/supportive/wider/deeper Shoegear, Digital Padding/Strapping/Taping/Bracing/Gel protective sleeves, Foot/Ankle AFO Bracing, Stretching exercises, Deep Tissue Massage, Arch support/shoe inserts with splay metatarsal padding, and Custom orthoses. I insisted that any digital devices be removed daily and not worn overnight for safety. The patient is to carefully examine the toes daily for any skin irritation while using any splinting or padding device. The advantages and disadvantages of each option were discussed and the patients questions re: shoegear, padding, custom vs prefabricated inserts, activity level, and consistency in home treatment regimens for optimal success were answered to their verbally confirmed satisfaction.?Shoe Gear Counseling:?SHOE Rx - The patient was counseled in great detail on their muscoloskeletal foot and toe deformities which coincided with the dermatological presentations visualized on exam. We discussed how their deformities put the integrity of their feet at risk for potential pedal complications which makes the accomidative diabetic shoes and cutomizable inserts medically necessary. We discussed the different shoe and insert treatment types and options, as well as the important advantages for adhering to regularly wearing these accomidative devices daily. The patient was made aware of the fact that a failure to abide by these recommedations may be deleterious to their foot health as they are able to prevent many pedal complications such as skin irritation, skin ulceration, infection, and even loss of toe/foot/leg/or life. Time was also spent with the patient dispensing and discussing proper diabetic footcare techniques including daily skin moisturization, daily foot inspection for any interruption in skin integrity including open lesions, or sign of infection such as redness/malodor/drainage/swelling. Also discussed and recommended were procedures regarding daily shoe inspection for the presence of internal foreign bodies as well as any visualized irregular shoe or insert wear. Patient questions re: shoes, inserts, and self foot inspections were answered to their satisfaction as the patient verbally confirmed a full understanding of the above information. A Rx for Extra Depth Orthopedic Shoes with 3 pair of custom heat-molded inserts was dispensed.? ??Screening/Special Tests:?Fall Risk?Screening:?No falls in the past year ?FALLS: Screening for Future Fall Risk?Have you had any falls with injury in the past year??No * Follow Up:?3 Months * Images: * Sign off status: Completed true * Provider:?Sandee Chen DPM Date:?0 07/23/2024 Generated for Patricia causey/Fredy/Keilaitting on:?09/24/2024 04:06 PM EDT History and Physical Notes * HPI (History of Present Illness) Category Sub-Category Detail Notes Category Not es Toe pain Location: B/L feet Duration: several years Course: worse Aggravated by: shoes, any pressure Treatments: change in shoes At Risk footcare Pt States Last PCP Visit: Date: 4 Examination Category Sub-Category Detail Notes Category Not es Neurological SENSORY: Neurological exa m demonstrates, reduced light touch sensation, reduced sharp/dull pin prick discrimination , B/L, 5.07 monofilament test performed at plantar aspects of 5 varied sites per foot shows sensation, reduced , B/L Dermatologic SKIN FINDINGS: Skin exam reveal s Keratotic lesion(s) located at sub 1st and 5th MPJ B/L, plantar heels B/L Orthopedic FOOTWEAR: worn, non-suppor tive, shoe gear properties exacerbate patient's foot/toe deformity DIGITAL DEFORMITIES: Digital contracture , PIPJ, 2-5 B/L, incompl-reducible to push-up test, no over, nor underlapping, there is evidence of shoe producing skin irritation MUSCLE STRENGTH: 5/5 all groups in a symmetrical fashion, B/L General Examination GENERAL APPEARANCE: Reveals a pleasant, alert, well nourished, well-developed, well hydrated individual, who demonstrates proper attention to hygiene/body habitus, and is in no acute distress, Pt serves as own historian for office visit today FOOT EXAM: Lower Extremity Neurological Exa m performed:: Yes Date Visual exam of foot performed:: Yes ORIENTED: person, place, and t rory Footwear Evaluation Footwear Evaluation performe d:: Yes Ophthalmology Referral DIABETES EYE EXAM Procedure Perform ed:: Yes ?Date of Exam Performed: 03/15/2024 Vascular DP PULSES (B): 1/4, B/L PT PULSES (B): 1/4, B/L CAPILLARY FILL TIME: 3 secs. per digit, B/L TEMPERTURE GRADIENT (C): warm to cool, p roximal to distal, B/L TROPHIC CONDITION-TEXTURE/ELASTICITY/TURGOR/HAIR GROWTH (B): normal, B/L EDEMA (C): 1/4, B/L, Feet, Ankl e(s), Leg(s) PIGMENTATION: normal, B/L Nails NAILS are: Elongated, overg rown, dystrophic, lytic, greater than 3mm thick, discolored and friable with crumbly malodorous subungual debris, TA, T1, T2, T3, T4, T5, T6, T7, T8, T9 CQM Exceptions: Hemoglobin A1c not performed Reason:: No r geovani specified
--- OUTSIDE RECORDS SUMMARY | 2024-09-24 16:07 | XMS_ITS ---
Author Name Tanmay RAINEAlonso Address [address] [place] [address] Phone [phone] Organization [facility] Care Team Providers Care Requisition Approver Name Role Phone Alonso Donato Unavailable [phone] Reason for Referral Not Available Allergies, adverse reactions, alerts Allergen Type Reaction Severity Status Onset Date Smiley (Diagnostic) Allergy to substance (disorder) analphylaxis Unknown Active N/A Apple (Diagnostic) Allergy to substance (disorder) analphylaxis Unknown Active N/A Aspirin Allergy to substance (disorder) GI sxs Unknown Active N/A History of medication use Medication Class Instructions Start Date End Date BINAXNOW COVID-19 AG SELF TEST KIT TEST DIRECTED TODAY 2022-03-05 No Data Available FreeStyle Bobby 14 Day Senso r Miscellaneous DIRECTED 2021-06-06 No Data Available Insulin Lispro (1 Unit Dial) 100 UNIT/ML Solution Pen-injector INJECT 6-10 UNITS UNDER THE SKIN THREE TIMES DAILY BEFORE EACH MEAL ACCORDING TO SLIDING SCALE 2022-01-21 No Data Available Olmesartan Medoxomil 5 mg Tab TAKE 1 TAB LET BY MOUTH DAILY 2021-06-05 No Data Available Trulicity 1.5 mg/0.5ML Solution Pen-injector ADMINISTER 1.5 MG UNDER THE SKIN EVERY WEEK 2022-03-15 2024-09-06 Lantus SoloStar 100 UNIT/ML Solution Pen-injector Subcutaneous INJECT 54 UNITS UNDER THE SKIN EVERY NIGHT AT BEDTIME 2021-12-12 No Data Available Atorvastatin Calcium 80 mg Tab TAKE 1 TABLET BY MOUTH DAILY 2021-12-24 2023-09-19 Gabapentin 100 mg Cap TAKE 2 CAPSULES BY MOUTH TWICE DAILY 2022-02-19 No Data Available Omeprazole 20 mg Cap delayed rel TAKE 1 CAPSULE BY MOUTH TWICE DAILY 2021-07-27 No Data Available Cetirizine 10 mg Tab TAKE 1 TABLET BY MO UTH DAILY 2022-01-23 No Data Available VITAMIN D3 50MCG TABLETS TAKE 1 TABLET B Y MOUTH DAILY 2021-07-27 No Data Available metFORMIN ER 500 mg Tab ER 24hr TAKE 2 TABLETS BY MOUTH TWICE DAILY 2021-11-19 No Data Available Furosemide 20 mg Tab TAKE 1 TABLET BY [facility] EVERY OTHER DAY 2022-05-31 No Data Available Refresh Tears 0.5 % Solution Ophthalmic 1 gtt TID 2022-08-28 No Data Available metroNIDAZOLE 0.75 % Gel 1 application t opically to affected area 2 times per day 2022-08-28 No Data Available Docusate Sodium 100 mg Cap 2 capsules orally daily 09-05-21 No Data Available calcium carbonate 600mg chew 1 chew QD 2022-08-28 No Data Available Tylenol Extra Strength 500 m g Tab 2 tablets orally one time TID PRN pain 2022-08-28 No Data Available Rosuvastatin Calcium 20 mg Tab TAKE 1 TABLET BY MOUTH DAILY 2022-09-12 No Data Available Clotrimazole-Betamethasone 1-0.05 % Crm APPLY THIN LAYER TOPICALLY TO THE AFFECTED AREA TWICE DAILY FOR 7 DAYS FOR FUNGAL RASH 2023-07-03 No Data Available Latanoprost 0.005 % Solution INSTILL 1 D ROP IN BOTH EYES EVERY EVENING DIRECTED 2023-08-04 No Data Available Lumigan 0.01 % Solution INSTILL 1 DROP I NTO BOTH EYE EVERY EVENING DIRECTED 2023-08-28 No Data Available Nystatin 529116 UNIT/GM Powder APPLY TOPICALLY EVERY DAY 2023-09-17 No Data Availa ble Nystatin 415757 UNIT/GM Powder apply to affected area BID after allowing skin folds to air dry 2023-09-19 No Data Available Mounjaro 12.5 mg/0.5ML Solution Auto-injector ADMINISTER 12.5 MG UNDER THE SKIN EVERY WEEK 2024-02-26 No Data Available Lidocaine 5 % Patch APPLY 1 PATCH TOPICA LLY TO SKIN EVERY DAY.LEAVE ON FOR 12 HOURS AND REMOVE FOR 12 HOURS 2024-03-23 No Data Available LORazepam 0.5 mg Tab TAKE 1 TABLET BY [facility] EVERY DAY NEEDED FOR ANXIETY.TAKE 1 TABLET BY MOUTH 1 HOUR BEFORE TRIP 2024-05-25 No Data Available Timolol Maleate 0.5 % Solution INSTILL 1 DROP INTO BOTH EYES EVERY MORNING DIRECTED 2023-09-25 No Data Available Problem List Problem Status Onset Date Resolved Date 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 Active 2022-08-28 N/A GERD (gastroesophageal reflux disease) Active 29-08-21 N/A HLD (hyperlipidemia) Active 2022-08-28 N/A HTN (hypertension) Active 2022-08-28 N/A Intertrigo Active 2023-09-19 N/A Glaucoma Active 2023-09-19 N/A Other problems related to tn dical facilities and other health care Active 2024-09-06 N/A Morbid obesity Active 2022-08-28 N/A Encounters Encounters Type Facility Date of Service Diagnosis/Co mplaint New patient,40-59min; chronic exacerbation, 2 stable chronic or 1 acute illness add add modifier 95 for video (do not use for phone, instead use 36614-34) [facility] Type 2 diabetes mellitus wit h diabetic cataractLong term (current) use of insulinType 2 diabetes mellitus with diabetic neuropathy, unspecifiedMorbid (severe) obesity due to excess caloriesBody mass index (BMI) 40.0-44.9, adultGastro-esophageal reflux disease without esophagitisHyperlipidemia, unspecifiedEssential (primary) hypertension New patient,40-59min; chronic exacerbation, 2 stable chronic or 1 acute illness add add modifier 95 for video (do not use for phone, instead use 33384-76) [facility] New patient,40-59min; chronic exacerbation, 2 stable chronic or 1 acute illness add add modifier 95 for video (do not use for phone, instead use 01006-28) [facility] New patient,40-59min; chronic exacerbation, 2 stable chronic or 1 acute illness add add modifier 95 for video (do not use for phone, instead use [id number]) [facility] New patient,40-59min; chronic exacerbation, 2 stable chronic or 1 acute illness add add modifier 95 for video (do not use for phone, instead use [id number]) [facility] New patient,40-59min; chronic exacerbation, 2 stable chronic or 1 acute illness add add modifier 95 for video (do not use for phone, instead use 21812-86) [facility] New patient,40-59min; chronic exacerbation, 2 stable chronic or 1 acute illness add add modifier 95 for video (do not use for phone, instead use 09839-29) [facility] New patient,40-59min; chronic exacerbation, 2 stable chronic or 1 acute illness add add modifier 95 for video (do not use for phone, instead use 08673-29) [facility] Estab. patient 30-39min; chronic exacerbation, 2 stable chronic or 1 acute illness add add modifier 95 for video, (do not use for phone, instead use 14737-20) [facility]2023 Type 2 diabetes mellitus wit h diabetic cataractType 2 diabetes mellitus with diabetic neuropathy, unspecifiedMorbid (severe) obesity due to excess caloriesBody mass index (BMI) 45.0-49.9, adultGastro-esophageal reflux disease without esophagitisHyperlipidemia, unspecifiedEssential (primary) hypertensionErythema intertrigoOther problems related to medical facilities and other health careUnspecified glaucoma Estab. patient 30-39min; chronic exacerbation, 2 stable chronic or 1 acute illness add add modifier 95 for video, (do not use for phone, instead use 03293-43) [facility] Estab. patient 30-39min; chronic exacerbation, 2 stable chronic or 1 acute illness add add modifier 95 for video, (do not use for phone, instead use 69477-53) [facility] Estab. patient 30-39min; chronic exacerbation, 2 stable chronic or 1 acute illness add add modifier 95 for video, (do not use for phone, instead use 54563-66) [facility] Estab. patient 30-39min; chronic exacerbation, 2 stable chronic or 1 acute illness add add modifier 95 for video, (do not use for phone, instead use 87304-71) [facility] Estab. patient 30-39min; chronic exacerbation, 2 stable chronic or 1 acute illness add add modifier 95 for video, (do not use for phone, instead use 37964-09) [facility] Estab. patient 30-39min; chronic exacerbation, 2 stable chronic or 1 acute illness add add modifier 95 for video, (do not use for phone, instead use 10807-31) [facility] 09[place] Estab. patient 30-39min; chronic exacerbation, 2 stable chronic or 1 acute illness add add modifier 95 for video, (do not use for phone, instead use 70392-12) [facility] 09[place]20[place] Estab. patient 30-39min; chronic exacerbation, 2 stable chronic or 1 acute illness add add modifier 95 for video, (do not use for phone, instead use 97096-86) [facility]20[place] Estab. patient 20-29min; 1 stable chronic or 2 minor; add add modifier 95 for video, modifier 93 for phone [facility]06/2024 Type 2 diabetes mellitus wit h diabetic cataractType 2 diabetes mellitus with diabetic neuropathy, unspecifiedMorbid (severe) obesity due to excess caloriesGastro-esophageal reflux disease without esophagitisHyperlipidemia, unspecifiedEssential (primary) hypertensionErythema intertrigoUnspecified glaucomaOther problems related to medical facilities and other health care Estab. patient 20-29min; 1 stable chronic or 2 minor; add add modifier 95 for video, modifier 93 for phone [facility] 09/06/20[place] Estab. patient 20-29min; 1 stable chronic or 2 minor; add add modifier 95 for video, modifier 93 for phone [facility] 09[place]06[place]20[place] Estab. patient 20-29min; 1 stable chronic or 2 minor; add add modifier 95 for video, modifier 93 for phone [facility] 09[place]06[place] Estab. patient 20-29min; 1 stable chronic or 2 minor; add add modifier 95 for video, modifier 93 for phone [facility] Estab. patient 20-29min; 1 stable chronic or 2 minor; add add modifier 95 for video, modifier 93 for phone [facility] Estab. patient 20-29min; 1 stable chronic or 2 minor; add add modifier 95 for video, modifier 93 for phone [facility] 09[place]06/20[place] Estab. patient 20-29min; 1 stable chronic or 2 minor; add add modifier 95 for video, modifier 93 for phone [facility] 09/06/20[place] Estab. patient 20-29min; 1 stable chronic or 2 minor; add add modifier 95 for video, modifier 93 for phone [facility] 09/[place]/2024 Vital Signs Date of Collection Vitals 2022-08-28 06:38:14 Height - 149.86 cmWe ight - 99.79 kgBody Mass Index (BMI) - 44.43 kg/m2BP Diastolic - 70.0 mm[Hg]BP Systolic - 120.0 mm[Hg] 2023-09-19 08:01:56 Height - 149.86 cmWe ight - 102.51 kgBody Mass Index (BMI) - 45.65 kg/m2BP Systolic - 119.0 mm[Hg] 2024-09-06 13:44:45 Height - 149.86 cmWe ight - 99.79 kgBody Mass Index (BMI) - 44.43 kg/m2BP Diastolic - 80.0 mm[Hg]BP Systolic - 120.0 mm[Hg] Social History Social History Social History Observation Description Effec tive Time Current Smoking Status Never smoker 2024-09-05 1 Sex Female History of Procedures Procedures Service Procedure code Service date Servicing provider Phone# New patient,40-59min; chronic exacerbation, 2 stable chronic or 1 acute illness add add modifier 95 for video (do not use for phone, instead use [id number]) [id number] 2022-08-28 No Data Available No Data Availa ble Medication List Documented (1159F) 1159F 2022-08-28 No Data Available No Data Apple ilable Medication Review by prescribing provider or pharmacist documented (1160F) 1160F 2022-08-28 No Data Available No Data Apple ilable Pain Assessment - Pain Documented on a Pain Scale (1125F) 1125F 2022-08-28 No Data Available No Data Apple ilable Advance Care Directive Advance care planning discussion documented in the medical record (1158F) 1158F 2022-08-28 No Data Available No Data Availa ble BMI obtained (3008F) 3008F 2022-08-28 No Data Availab le No Data Available SBP < 130 (3074F) 3074F 2022-08-28 No Data Available No Data Available DBP <80 (3078F) 3078F 2022-08-28 No Data Available No Data Available Estab. patient 30-39min; chronic exacerbation, 2 stable chronic or 1 acute illness add add modifier 95 for video, (do not use for phone, instead use 75919-94) 98857 2023-09-19 No Data Available No Data Availa ble Medication List Documented (1159F) 1159F 2023-09-19 No Data Available No Data Apple ilable Medication Review by prescribing provider or pharmacist documented (1160F) 1160F 2023-09-19 No Data Available No Data Apple ilable BMI obtained (3008F) 3008F 2023-09-19 No Data Availab le No Data Available Advance Care Directive Advance care planning discussion documented in the medical record (1158F) 1158F 2023-09-19 No Data Available No Data Availa ble Advance care planning discussed and documented ? advance care plan or surrogate decision-maker was documented in the medical record. (1123F) 1123F 2023-09-19 No Data Available No Data Availa ble Pain Assessment - Pain Documented on a Pain Scale (1125F) 1125F 2023-09-19 No Data Available No Data Apple ilable Functional Status Assessed (1170F) 1170F 2023-09-19 No Data Available No Data Avail able SBP < 130 (3074F) 3074F 2023-09-19 No Data Available No Data Available Estab. patient 20-29min; 1 stable chronic or 2 minor; add add modifier 95 for video, modifier 93 for phone 54937 2024-09-06 No Data Available No Data Availa ble Medication List Documented (1159F) 1159F 2024-09-06 No Data Available No Data Apple ilable Medication Review by prescribing provider or pharmacist documented (1160F) 1160F 2024-09-06 No Data Available No Data Apple ilable Functional Status Assessed (1170F) 1170F 2024-09-06 No Data Available No Data Avail able Advance Care Directive Advance care planning discussion documented in the medical record (1158F) 1158F 2024-09-06 No Data Available No Data Availa ble Advance care planning discussed and documented ? advance care plan or surrogate decision-maker was documented in the medical record. (1123F) 1123F 2024-09-06 No Data Available No Data Availa ble SBP < 130 (3074F) 3074F 2024-09-06 No Data Available No Data Available DBP 80-89 (3079F) 3079F 2024-09-06 No Data Available No Data Available Pain Assessment - Pain Documented on a Pain Scale (1125F) 1125F 2024-09-06 No Data Available No Data Apple ilable Functional Status Functional Category Effective Dates + walker - in the house, + cane - when g oes out 2022-08-28 Cognition Status: Oriented t o Person, Place and TimeADL Eating: Independent; Ambulation: Independent; Dressing: Some Help Needed; Bathing: Assistt; Toileting: IndependentIADL Shopping: Independent; Housekeeping: Some Help Needed; Meal Prep: Some Help Needed; Medications Management: AssistFalls in last 6 Months: No 2023-09-19 Mental Status Status Date alert & oriented: name, , date, place 2022-08-28 Assessments Date of Service Assessments 2022-08-28 06:38:14 Type 2 diabetes terrell itus with diabetic cataractMorbid obesityGERD (gastroesophageal reflux disease)HLD (hyperlipidemia)HTN (hypertension) 2023-09-19 08:01:56 Type 2 diabetes terrell itus with diabetic cataract andwith diabetic neuropathyMorbid obesityGERD (gastroesophageal reflux disease)HLD (hyperlipidemia)HTN (hypertension)IntertrigoOther problems related to medical facilities and other health careGlaucoma 2024-09-06 13:44:45 Type 2 diabetes terrell itus with diabetic cataract andwith diabetic neuropathyMorbid obesityGERD (gastroesophageal reflux disease)HLD (hyperlipidemia)HTN (hypertension)IntertrigoGlaucomaOther problems related to medical facilities and other health care Plan of Care Date of Service Plans 2022-08-28 06:38:14 Pain Assessment - NO pain documented (1126F)Medication Review by prescribing provider or pharmacist documented (1160F)Medication List Documented (1159F)Functional Status Assessed (1170F)Advance Care Directive Advance care planning discussion documented in the medical record (1158F)BMI obtained (3008F)SBP < 130 (3074F)DBP <80 (3078F)Televideo new patient,40-59min; chronic exacerbation, 2 stable chronic or 1 acute illness add modifier 95Continue to see PCP. Follow-up with [facility] as needed for any acute or disease education needs that may arise.stableLantus, metformin, lispro, trulicityGlucose: 60-130 in AMA1c: unknownRenal: deniesCV: HLD - atorvastatinNeuropathy: gabapentin 100mgEyes: s/p cataract surgeryFollows with PCPRecommend low carb/sugar diet, exercise, monitor BG; notify CB of high/low glucose levelsstableBMI: 44.43+ HTNFollows with PCPstableomeprazoleFollows with PCPstableatorvastatinFollows with PCPstableOlmesartan, furosemideBP: ~120/70Follows with PCP 2023-09-19 08:01:56 Medication Review by prescribing provider or pharmacist documented (1160F)Medication List Documented (1159F)Functional Status Assessed (1170F)Advance Care Directive Advance care planning discussion documented in the medical record (1158F)BMI obtained (3008F)Televideo 30-39min; chronic exacerbation, 2 stable chronic or 1 acute illness add modifier 95Advance care planning discussed and documented ? advance care plan or surrogate decision-maker was documented in the medical record. (1123F)Advance care planning discussed and documented in the medical record ? beneficiary/patient did not wish to or was unable to provide an advance care plan or name a surrogate decision-maker. (1124F)Pain Assessment - NO pain documented (1126F)Continue to see PCP. Follow-up with [facility] as needed for any acute or disease education needs that may arise.stableLantus, metformin, lispro, trulicityGlucose: 60-130 in AMA1c: unknownRenal: deniesCV: HLD - atorvastatinNeuropathy: gabapentin 100mgEyes: s/p cataract surgeryFollows with PCPRecommend low carb/sugar diet, exercise, monitor BG; notify CB of high/low glucose levelsBMI: 45.65+ HTNFollows with PCPdiet, exercise, and lifestyle interventions to promote weight loss and achieve normal BMI. Continue f/u care and monitoring with PCP every 3-6 months.stableomeprazoleFollows with PCPstableatorvastatinFollows with PCPstableOlmesartan, furosemideBP: ~120/70Follows with PCPUnder breastsNystatin powderCall CB if sciatica pain worsens,if BP >150/100, <100/60.Sees optho 2024-09-06 13:44:45 Functional Status As sessed (1170F)Advance Care Directive Advance care planning discussion documented in the medical record (1158F)Advance care planning discussed and documented ? advance care plan or surrogate decision-maker was documented in the medical record. (1123F)Estab. patient 20-29min; 1 stable chronic or 2 minor; add add modifier 95 for video, modifier 93 for phoneMedication List Documented (1159F)Pain Assessment - Pain Documented on a Pain Scale (1125F)Medication Review by prescribing provider or pharmacist documented (1160F)Continue to see PCP. Follow-up with [facility] as needed for any acute or disease education needs that may arise.stableLantus, metformin, lispro, trulicityGlucose: 60-130 in AMA1c: unknownRenal: deniesCV: HLD - atorvastatinNeuropathy: gabapentin 100mgEyes: s/p cataract surgeryFollows with PCPRecommend low carb/sugar diet, exercise, monitor BG; notify CB of high/low glucose levels 09/06/24 : BG this a.m-120. Continue current treatment plan as directed. Has a f/u with PCP next month.BMI: 45.65+ HTNFollows with PCPdiet, exercise, and lifestyle interventions to promote weight loss and achieve normal BMI. Continue f/u care and monitoring with PCP every 3-6 months. 09/06/24: BMI- Encouraged healthy lifestylestableomeprazoleFollows with PCP09/06/24 : Continue current treatment plan as directed. Has a f/u with PCP next month.stableatorvastatinFollows with PCP09/06/24 : Continue current treatment plan as directed. Has a f/u with PCP next month.stableOlmesartan, furosemideBP: ~120/70Follows with PCP09/06/24 : Continue current treatment plan as directed. Has a f/u with PCP next month.Under breastsNystatin powder09/06/24 : Reports that t goes and comes. Continue current treatment plan as directed. Has a f/u with PCP next month.Sees optho09/06/24: Has a f/u with Pond Supervisor o 09/07/24.DIABETES CONTINGENCY PLANLast updated: 09/06/2024Member to call for the following symptoms: Blood sugar >300 / Polydipsia/ PolyuriaPlanned intervention: Give short-acting insulin per sliding scale- if BG 250-300- 8U, 300-350- 10u,350-400- 12u, 400-450- 14u/ Encourage adequate water intake/ Elevate legs/ Limit high-sugar and high-carbohydrate foods/ Go for a walk Goals Date Goal 2024-09-06 Continue taking medi cations as directed and keep all follow up appointments with established PCP and Specialist. Health Concerns Date Concern 2024-09-06 Visit completed rusty au audio/video.Patient/Guardian agreed to visit via telehealth. Today, patient has chief complaint of: follow up care and comprehensive review.Reviewed Allergies, Medications, Active Medical conditions, past medical/surgical history, Social history. 2024-09-06 <add details of Adva nce Care Planning conversation using Advance Care Plan ConversationDate of Conversation: 09/06/2024Life Limiting Diagnosis: Diagnosis:Currently on Hospice NoCode Status: YES CPR: Attempt ResuscitationGoals of Care: Curative: Attempt to sustain life by all medically effective meansNutrition goals: Feeding through new or existing surgically placed tube is okDo you have a Durable Power of Joint Cutter Machine for Healthcare, or Healthcare Proxy Or Guardianship? Yes, POAIf so, Who? Jay King, daughters Theresa and Rosalia King.Do you have a written Advance Directive? Has no formal documentationOther details of discussion: Discussed with memberToday's plan: Encouraged to visit eVestment1123F : AD or surrogate was documented in the medical record. 2024-09-06 Most recent hospital stay(s) or ER visit(s) and precipitating factors: Denies 2024-09-06 Open HEDIS Eloisa choe: Reviewed
--- OUTSIDE RECORDS SUMMARY | 2024-09-24 16:07 | XMS_ITS ---
Author Organization [facility] Address [address] [place] [address] Care Team Providers Care Research Administrator Name Role Phone Josefa Giordano MD Primary Care Provider Sandee Ordaz Unavailable [phone] Mendoza Zaragoza Unavailable [phone] Allergies Allergen (clinical drug ingredient) Drug/Non Drug Allergy documented on EMR Reaction Allergy Type Onset Date Status apple allergenic extract apples (uncoded) Unknown Allergy Active REASON FOR VISIT Painful nail(s) aggrevated by shoes and causing difficulty standing/walking., Last Visit PCP 02/2024 Medications Medication SIG (Take, Route, Frequency, Duration) Notes Start Date End Date Status Insulin Lispro Activ e Lantus SoloStar Acti ve Docusate Sodium 100 MG 1 capsule as need ed Orally Once a day for 30 day(s) Active Gabapentin 100 MG 1 capsule Orally Onc e a day for 30 day(s) Active metroNIDAZOLE 0.75 % 1 application Exter shaniqua Twice a day Active Calcium Active Cetirizine HCl 10 MG 1 tablet Orally Onc e a day for 30 day(s) Active Atorvastatin Calcium 80 MG 1 tablet Oral ly Once a day for 30 day(s) Active Acetaminophen Extra Strength 500 MG 1 tablet as needed Orally every 6 hrs Active metFORMIN HCl 1000 MG 1 tablet with a me al Orally Once a day for 30 day(s) Active Refresh Active Omeprazole 20 MG 1 capsule 30 minutes before morning meal Orally Once a day for 30 day(s) Active Trulicity 0.75 MG/0.5ML as directed Subcutaneous Active [place] 3 Active Olmesartan Medoxomil 5 MG 1 tablet Orall y Once a day for 30 day(s) Active Physical Therapy . . . 2-3x/week for 3- 4 weeks Active Extra Depth Diabetic Shoes with 3 Pair Custom heat-molded multi-density innersoles for 1 year Dx: Active Night Splint AFO - L1930 as directed Active Vitamin D Active Lidoderm 5 % 1 patch remove after 12 hours Externally Once a day for 30 days 03/23/2024 Active Extra Depth Diabetic Shoes with 3 Pair Custom heat-molded multi-density innersoles for 1 year Dx: 03/23/2024 Active Voltaren 1 % as directed Externally Active Social History Tobacco Use: Social History Observation Description Date Details (start date - stop date) Former Smoker NA - NA Tobacco Use/Smoking Question Answer Notes Are you a: former smoker Additional Findings: Tobacco Non-User Current no n-smoker Alcohol Screen Question Answer Notes Did you have a drink containing alcohol in the p ast year? No Points 0 Interpretation Negative Tobacco use other than smoking: Question Answer Notes Are you an other tobacco user? 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) 03/23/2024 Primary osteoarthritis, right ankle and foot (ICD-10 - M19.071) 03/23/2024 Tinea unguium (ICD-10 - B35.1) 03/23/2024 Pain in right toe(s) (ICD-10 - M79.674) 03/23/2024 Pain in left toe(s) (ICD-10 - M79.675) 03/23/2024 Xerosis cutis (ICD-10 - L85.3) Plan Of Treatment Medication Medication Name Sig Start Date Stop Date Notes Lidoderm 5 % 1 patch remove after 12 hours Externally Once a day for 30 days 03/23/2024 Extra Depth Diabetic Shoes with 3 Pair Custom heat-molded multi-density innersoles for 1 year Dx: 03/23/2024 Voltaren 1 % as directed Externally Next Appt Details Follow Up: 4 Months, Reason: Provider Name:Sandee rodriguez, 11/05/2024 12:00:00 PM, [address] [facility], [address], [place], [address], Procedure Notes * Category Sub-Category Detail Notes [...] as necessary. Patient chooses, no pharmaceutical tx (37674) Keratoma Treatment Parring or Cutting o f Benign Hyperkeratotic Lesion(s) 09346 (2-4 Lesions) - The Benign hyperkeratotic lesions, as described above were pared, and/or cut utilizing a sterile #15 blade, tissue nippers, and/or dremel Progress Notes * Emily KINGDOB:1950 (73 yo F)Acc No.[id number]:03/23/2024 Progress Note Patient:?Emily KING Provider:?Mendoza Zaragoza DPM :1950???Age:73 Y???Sex:Female D ate:03/23/2024 Address:[address] [place], [place] Pcp:Josefa Giordano MD Subjective: * Chief Complaints: * ???Painful nail(s) aggrevate d by shoes and causing difficulty standing/walking.Last Visit PCP 02/2024 * HPI: ???Foot Pain:?Nature:?sharp, aching.?Location?Top, Bottom, Forefoot, Midfoot, B/L.?Duration:?several years.?Onset/Cause:?unknown.?Course:?worse in past month.?Aggrevated:?any pressure, standing.?Treatments:?ice, nightsplint,?has complied with?new dm shoes and likes them .?Quality/Severity?moderate, severe.? * ROS:?General/Constitutional:?Nausea?denies.?Vomiting?denies.?Hunger Thirst?denies.?Loss appetite?denies.?Chills?denies.?Fatigue?denies.?Fever?denies.?Night Sweats?denies.?Unexplained weight loss?denies.?Unexplained weight gain?denies.?HEENTM:?Dentures?admits.?Dizziness?denies.?Glasses/contacts?admits.?Retinopathy?de nies.?Blurred/double vision?denies.?TMJ?denies.?Discharge/drainage?denies.?Implants?denies.?Sore throat?denies.?Dental implants?denies.?Hard of hearing ?denies.?Difficulty chewing/swallowing/speaking?denies.?Nose bleeds?denies.?Sore mouth?denies.?Respiratory:?On Oxygen?denies.?Pneumonia/pleurisy?denies.?Bronchitis?denies.?Emphysema?denies.?C oughing?denies.?Cough blood?denies.?Shortness of breath?denies.?Wheezing?denies.?Cardiovascular:?Pacemaker?denies.?MVP?denies.?WPW?denies.?CHF?denies.?Heart attack?denies.?Septal defect?denies.?Rapid beat?denies.?Chest pain ?denies.?Atrial Fib.?denies.?Murmur/Palpitations?denies.?Gastrointestinal:?Hemorrhoids?denies.?Stomach/Abdominal pain?denies.?Dark blood stool?denies.?Irritable bowel ?denies.?Constipation?denies.?Diarrhea?denies.?Hematology:?Swelling?denies.?Clots?denies.?Varicose Veins?admits.?Bruising?denies.?Bleeding problem?denies.?Genitourinary:?Blood urine?denies.?Frequent/Painfu/urination/bladder control?denies.?Kidney stones?denies.?Infection (UTI)?denies.?Nephropathy?denies.?sex trans dis (STD)?denies.?Prostate?denies.?Musculoskeletal:?Hammertoes?denies.?Bunions?denies.?Back Pain?denies.?Muscle Cramps/ Resting?admits.?Muscle cramps / walking?denies.?Generalized aches and pains?denies.?Weakness?denies.?Integ.:?Foster?denies.?Scars?denies.?Corns/calluses?denies.?Ingrown nails?denies.?Painful nails?denies.?Open Sores?denies.?Rashes?denies.?Neurologic:?Difficulty sleeping?admits.?Brain disorder?denies.?Numbness?admits.?Balance trouble?denies.?Confusion?denies.?Fainting/blackouts?denies.?Tingling?admits.?Tr emors?denies.? * Medical History:? * Surgical History:?cataract r emoval 12/2021 * Hospitalization/Major Diagno stic Procedure:?No Hospitalization History. * Family History:?Mother: dece ased, diagnosed with Family history of arthritis, Unspecified essential hypertension, Diabetic - NIDDM.?Father: , diagnosed with Family history of arthritis.?Siblings: foot problems, diagnosed with Family history of arthritis, Unspecified essential hypertension, Other malignant neoplasm of unspecified site.?Spouse: alive.? * Social History:?Tobacco Use:?Tobacco Use/Smoking?Are you a:?former smoker ?Additional Findings: Tobacco Non-User?Current non-smoker ?Tobacco use other than smoking?Are you an other tobacco user??No ???Drugs/Alcohol:?Drugs?Have you used drugs other than those for medical reasons in the past 12 months??No ?Alcohol Screen?Did you have a drink containing alcohol in the past year??No ?Points?0 ?Interpretation?Negative ???Miscellaneous:?Caffeine: yes. ?Children: yes. ?Marital status: . ?Occupation: Retired. * Medications:?TakingNight Spl int AFO - L1930 as directed Physical Therapy . . . . 2-3x/week Extra Depth Diabetic Shoes with 3 Pair Custom heat-molded multi- density innersoles for 1 year Dx: Vitamin D Trulicity 0.75 MG/0.5ML Solution Pen- injector as directed Subcutaneous Refresh Omeprazole 20 MG Capsule Delayed Release 1 capsule 30 minutes before morning meal Orally Once a day [place] 3 Olmesartan Medoxomil 5 MG Tablet 1 [...] Gel 1 application Externally Twice a day Voltaren 1 % Gel as directed Externally Medication List reviewed and reconciled with the patientTaking Night Splint AFO - L1930 as directed Taking Physical Therapy . . . . 2-3x/week Taking Extra Depth Diabetic Shoes with 3 Pair Custom heat-molded multi-density innersoles for 1 year Dx: Taking Vitamin D Taking Trulicity 0.75 MG/0.5ML Solution Pen-injector as directed Subcutaneous Taking Refresh Taking Omeprazole 20 MG Capsule Delayed Release 1 capsule 30 minutes before morning meal Orally Once a day Taking [place] 3 Taking Olmesartan Medoxomil 5 MG Tablet [...] 1 application Externally Twice a day Taking Voltaren 1 % Gel as directed Externally Medication List reviewed and reconciled with the patient * Allergies:?applesyes[Allergi es Verified] Objective: * Vitals:?Wt:220, BMI:67.13, S hoe size:6.5, BS:119, Ht-cm: 121.92 cm, Wt-k.79 kg. * Examination: ???Ophthalmology Referral: ?DIABETES EYE EXAM?Diabetic Retinopathy Screening:?Yes 01/2024?General Examination: ?GENERAL APPEARANCE:?pleasant, alert, well nourished, well developed, well hydrated, with good attention to hygene/body habitus, and in no acute distress.?ORIENTED:?person,place, and time.?FOOT EXAM:?Lower Extremity Neurological Exam performed:?Yes ?Visual exam of foot performed:?Yes ?Date?03/23/2024 ?Footwear Evaluation?Footwear Evaluation performed:?Yes?Neurological: ?SENSORY:? Neurological exam demonstrates pop mey 4/5th -cub and pop mey ankle and plantar fascia midsection mey , 5.07 monofilament test performed at plantar aspects of 5 varied sites per foot shows sensation, reduced , B/L.?TINEL'S COMPRESSION:?Negative tarsal tunnel, laura pedis, and medial calcaneal nerves B/L.?BABINSKI REFLEX:?absent.?Neuroma Pain: ?PALPATION:?No interspace pain noted on palpation.?Vascular: ?DP PULSES (B):? 1/, B/L.?PT PULSES (B):? /4, B/L.?CAPILLARY FILL TIME:?3 secs. per digit, B/L.?TROPHIC CONDITION-TEXTURE/ELASTICITY/TURGOR/HAIR GROWTH (B):?normal, B/L.?TEMPERTURE GRADIENT (C):?warm to cool, proximal to distal, B/L.?PIGMENTATION:?normal, B/L.?EDEMA (C):? 1/4, B/L, Feet, Ankle(s), Leg(s).?Dermatologic: ?SKIN FINDINGS:? Skin exam reveals Keratotic lesion(s) located at, Plantar, Heel(s), B/L , Skin shows sign(s) of, dryness, scaling, in a stocking fashion, no fissure(s) present, B/L.?Orthopedic: ?MUSCLE STRENGTH:?5/5 all groups in a symmetrical fashion , B/L.?GAIT ABNORMALITY:?pronated, abducted, B/L.?FOOTWEAR:?fair condition.?Nails: ?NAILS are:? Elongated, overgrown, dystrophic, lytic, greater [...] M79.675???10.?Xerosis cutis - L85.3??? Plan: * Treatment: 2.?Plantar fascial fibromato sis? Start Voltaren Gel, 1 %, as directed, Externally;?Start Lidoderm Patch, 5 %, 1 patch remove after 12 hours, Externally, Once a day, 30 days, 90, Refills 6.?? * Procedures:?Debride Nail 6-10:?Nail debridement?Nail debridement performed extensively to reduce/remove overall nail length and girth, subungual debris, and necrotic tissue, by manual and electrical means with use of a nail nipper and/or dremel, to more viable healthy nail plate or bed tissue 6-10. Silver nitrate used for any petechial bleeding as necessary. Patient chooses, no pharmaceutical tx (40302).?Keratoma Treatment:?Parring or Cutting of Benign Hyperkeratotic Lesion(s)?31175 (2-4 Lesions) - The Benign hyperkeratotic lesions, as described above were pared, and/or cut utilizing a sterile #15 blade, tissue nippers, and/or dremel.? * Procedure Codes:?93456 DEBRI DE NAIL, 6 OR MORE, Modifiers: XS 81586 TRIM SKIN LESIONS, 2 TO 4, Modifiers: XS * Preventive Medicine:? ??Counseling:?Discussion:?-13: Office or other outpatient visit for the evaluation and management of an established patient, which required a medically appropriate history and/or examination and LOW level of DECISION MAKING for: 1 STABLE ACUTE UNCOMPLICATED PROBLEM, 2 OR MORE MINOR PROBLEMS, OR 1 STABLE CHRONIC PROBLEM, THAT POSE(S) A LOW RISK FOR MORBIDITY/MORTALITY. The visit on the day of the [...] have encouraged the patient to call the office.? ??Screening/Special Tests:?Fall Risk?Assessment:?Performed ?Screening:?No falls in the past year ?FALLS: Screening for Future Fall Risk?Have you had two or more falls in the past year??No ?Have you had any falls with injury in the past year??No * Follow Up:?4 Months * Images: * Sign off status: Completed true * Provider:?Mendoza Zaragoza DPM Date:? 024 Generated for Patricia causey/Fredy/Liza on:?09/24/2024 04:06 PM EDT History and Physical Notes * HPI (History of Present Illness) Category Sub-Category Detail Notes Category Not es Foot Pain Aggrevated: any pressure, standing Onset/Cause: unknown Course: worse in past month Duration: several years Nature: sharp, aching Treatments: ice, nightsplint, hogan s complied with new dm shoes and likes them Quality/Severity moderate, severe Location Top, Bottom, Forefoo t, Midfoot, B/L [...] B/L Orthopedic GAIT ABNORMALITY: pronated, abducted, B/L FOOTWEAR: fair condition MUSCLE STRENGTH: 5/5 all groups in a symmetrical fashion , B/L General Examination GENERAL APPEARANCE: pleasant , alert, well nourished, well developed, well hydrated, with good attention to hygene/body habitus, and in no acute distress FOOT EXAM: Lower Extremity Neurological Exa m performed:: Yes Visual exam of foot performed:: Yes Date: 03/23/2024 ORIENTED: person,place, and ti me Footwear Evaluation Footwear Evaluation performe d:: Yes Ophthalmology Referral DIABETES EYE EXAM Diabeti c Retinopathy Screening:: Yes 01/2024 Vascular DP PULSES (B): 1/4, B/L PT [...]
== END 2024-09-24 14:49 | disposition home or self-care (01) ==
LOC: HO.HMCC 13:48
PROVIDERS: PCP Internal Medicine; Visit Provider Internal Medicine
DX: E11.9 Type 2 diabetes mellitus without complications (principal); E66.01 Morbid (severe) obesity due to excess calories; Z68.42 Body mass index [BMI] 45.0-49.9, adult; I10 Essential (primary) hypertension; E78.5 Hyperlipidemia, unspecified

== ENCOUNTER → 2024-09-24 13:48 | Outpatient (BNVA) | payer OTHER, SELFPAY | PROVIDERS: PCP Internal Medicine; Visit Provider Internal Medicine | DX: E11.9 Type 2 diabetes mellitus without complications (principal); E66.01 Morbid (severe) obesity due to excess calories; Z68.42 Body mass index [BMI] 45.0-49.9, adult; I10 Essential (primary) hypertension; E78.5 Hyperlipidemia, unspecified; Z71.3 Dietary counseling and surveillance | CPT/HCPCS: 96127; 99212 ==

== ENCOUNTER 2024-12-16 09:20 | Outpatient (REF) | payer OTHER, SELFPAY ==
--- OUTSIDE RECORDS SUMMARY | 2024-12-16 10:06 | XMS_ITS ---
Author Name Tanmay RAINEAlonso Address [address] [place] [address] Phone [phone] Organization [facility] Care Team Providers Care Director Of Oncology Name Role Phone Alonso Donato Unavailable [phone] Reason for Referral Not Available Allergies, adverse reactions, alerts Allergen Type Reaction Severity Status Onset Date Buckley (Diagnostic) Allergy to substance (disorder) analphylaxis Unknown [...] 20 mg Tab TAKE 1 TABLET BY [facility] EVERY OTHER DAY 2022-05-31 No Data Available [...] EVENING DIRECTED 2023-08-28 No Data Available Nystatin 577642 UNIT/GM Powder APPLY TOPICALLY EVERY DAY 2023-09-17 No Data Availa ble Nystatin 667985 UNIT/GM Powder apply to affected area BID [...] 0.5 mg Tab TAKE 1 TABLET BY [facility] EVERY DAY NEEDED FOR ANXIETY.TAKE 1 TABLET BY MOUTH 1 HOUR BEFORE TRIP 2024-05-25 No Data Available Timolol Maleate 0.5 % Solution INSTILL 1 DROP INTO BOTH EYES EVERY MORNING DIRECTED 2023-09-25 No Data Available Problem List Problem Status Onset Date Resolved Date Synopsis 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 Continue current treatment plan as directed. Has a f/u with PCP next month. GERD (gastroesophageal reflux disease) Active 2022-08-28 N/A stableomeprazole Follows with PCP09/06/24 : Continue current treatment plan as directed. Has a f/u with PCP next month. HLD (hyperlipidemia) Active 2022-08-28 N/A stableatorvasta tinFollows with PCP09/06/24 : Continue current treatment plan as directed. Has a f/u with PCP next month. HTN (hypertension) Active 2022-08-28 N/A stable Olmesartan, furosemideBP: ~120/70Follows with PCP09/06/24 : Continue current treatment plan as directed. Has a f/u with PCP next month. Intertrigo Active 2023-09-19 N/A Under breastsN ystatin powder09/06/24 : Reports that t goes and comes. Continue current treatment plan as directed. Has a f/u with PCP next month. Glaucoma Active 2023-09-19 N/A Sees optho: Has a f/u with Oxygen Plant Operator o 09/07/24. Other problems related to medical facilities and other health care Active 2024-09-06 N/A DIABETES CO NTINGENCY PLANLast updated: 09/06/2024Member to call for the following symptoms: Blood sugar >300 / Polydipsia/ PolyuriaPlanned intervention: Give short-acting insulin per sliding scale- if BG 250-300- 8U, 300-350- 10u,350-400- 12u, 400-450- 14u/ Encourage adequate water intake/ Elevate legs/ Limit high-sugar and high-carbohydrate foods/ Go for a walk Morbid obesity Active 2022-08-28 N/A BMI: 44.43 + HTNFollows with PCPdiet, exercise, and lifestyle interventions to promote weight loss and achieve normal BMI. Continue f/u care and monitoring with PCP every 3-6 months. 09/06/24: BMI- Encouraged healthy lifestyle Encounters Encounters Type Facility Date of Service Diagnosis/Co mplaint New patient,40-59min; chronic exacerbation, 2 stable chronic or 1 acute illness add add modifier 95 for video (do not use for phone, instead use 97958-09) [facility] [place] 08/28/2022 Type 2 diabetes mellitus wit h diabetic cataractLong term (current) use of insulinType 2 diabetes mellitus with diabetic neuropathy, unspecifiedMorbid (severe) obesity due to excess caloriesBody mass index (BMI) 40.0-44.9, adultGastro-esophageal reflux disease without esophagitisHyperlipidemia, unspecifiedEssential (primary) hypertension New patient,40-59min; chronic exacerbation, 2 stable chronic or 1 acute illness add add modifier 95 for video (do not use for phone, instead use 59974-32) [facility] [place] 08/28/2022 New patient,40-59min; chronic exacerbation, 2 stable chronic or 1 acute illness add add modifier 95 for video (do not use for phone, instead use 44926-45) [facility] [place] 08/28/2022 New patient,40-59min; chronic exacerbation, 2 stable chronic or 1 acute illness add add modifier 95 for video (do not use for phone, instead use 14089-09) [facility] [place] 08/28/2022 New patient,40-59min; chronic exacerbation, 2 stable chronic or 1 acute illness add add modifier 95 for video (do not use for phone, instead use 49434-91) [facility] [place] 08/28/2022 New patient,40-59min; chronic exacerbation, 2 stable chronic or 1 acute illness add add modifier 95 for video (do not use for phone, instead use 64988-15) [facility] [place] 08/28/2022 New patient,40-59min; chronic exacerbation, 2 stable chronic or 1 acute illness add add modifier 95 for video (do not use for phone, instead use 51677-41) [facility] [place] 08/28/2022 New patient,40-59min; chronic exacerbation, 2 stable chronic or 1 acute illness add add modifier 95 for video (do not use for phone, instead use 34490-62) [facility] [place] 08/28/2022 Estab. patient 30-39min; chronic exacerbation, 2 stable chronic or 1 acute illness add add modifier 95 for video, (do not use for phone, instead use 89128-92) [facility] [place] 09/19/2023 Type 2 diabetes mellitus wit h [...] (do not use for phone, instead use 82825-77) [facility] [place] 09/19/2023 Estab. patient 30-39min; chronic exacerbation, 2 stable chronic or 1 acute illness add add modifier 95 for video, (do not use for phone, instead use 34029-52) [facility] [place] 09/19/2023 Estab. patient 30-39min; chronic exacerbation, 2 stable chronic or 1 acute illness add add modifier 95 for video, (do not use for phone, instead use 02030-29) [facility] [place] 09/19/2023 Estab. patient 30-39min; chronic exacerbation, 2 stable chronic or 1 acute illness add add modifier 95 for video, (do not use for phone, instead use 43061-31) [facility] [place] 09/19/2023 Estab. patient 30-39min; chronic exacerbation, 2 stable chronic or 1 acute illness add add modifier 95 for video, (do not use for phone, instead use 33619-72) [facility] [place] 09/19/2023 Estab. patient 30-39min; chronic exacerbation, 2 stable chronic or 1 acute illness add add modifier 95 for video, (do not use for phone, instead use 79142-13) [facility] [place] 09/19/2023 Estab. patient 30-39min; chronic exacerbation, 2 stable chronic or 1 acute illness add add modifier 95 for video, (do not use for phone, instead use 48800-76) [facility] [place] 09/19/2023 Estab. patient 30-39min; chronic exacerbation, 2 stable chronic or 1 acute illness add add modifier 95 for video, (do not use for phone, instead use 04198-26) [facility] [place] 09/19/2023 Estab. patient 20-29min; 1 stable chronic or 2 minor; add add modifier 95 for video, modifier 93 for phone [facility] [place] 09/06/2024 Type 2 diabetes mellitus wit h diabetic cataractType 2 diabetes mellitus with diabetic neuropathy, unspecifiedMorbid (severe) obesity due to excess caloriesBody mass index (BMI) 40.0-44.9, adultGastro-esophageal reflux disease without esophagitisType 2 diabetes mellitus with other specified complicationHyperlipidemia, unspecifiedEssential (primary) hypertensionErythema intertrigoType 2 diabetes mellitus with other diabetic ophthalmic complicationGlaucoma in diseases classified elsewhereOther problems related to medical facilities and other health care Estab. patient 20-29min; 1 stable chronic or 2 minor; add add modifier 95 for video, modifier 93 for [facility], [place]) 09/06/2024 Estab. patient 20-29min; 1 stable chronic or 2 minor; add add modifier 95 for video, modifier 93 for phone [facility], ([place]) 09/06/2024 Estab. patient 20-29min; 1 stable chronic or 2 minor; add add modifier 95 for video, modifier 93 for [facility], [place] 09/06/2024 Estab. patient 20-29min; 1 stable chronic or 2 minor; add add modifier 95 for video, modifier 93 for [facility], [place] 09/06/2024 Estab. patient 20-29min; 1 stable chronic or 2 minor; add add modifier 95 for video, modifier 93 for phone [facility] [place] 09/06/2024 Estab. patient 20-29min; 1 stable chronic or 2 minor; add add modifier 95 for video, modifier 93 for [facility], [place]) 09/06/2024 Estab. patient 20-29min; 1 stable chronic or 2 minor; add add modifier 95 for video, modifier 93 for phone [facility] [place] 09/06/2024 Estab. patient 20-29min; 1 stable chronic or 2 minor; add add modifier 95 for video, modifier 93 for phone [facility] ([place]) 09/06/2024 Vital Signs Date of Collection Vitals [...] tive Time Current Smoking Status Never smoker 2024-12-05 2 Sex Female History of Procedures Procedures Service Procedure code Service date Servicing provider Phone# New patient,40-59min; chronic exacerbation, 2 stable chronic or 1 acute illness add add modifier 95 for video (do not use for phone, instead use 19156-07) 01212 2022-08-28 No Data Available No Data Availa [...] (do not use for phone, instead use 44490-01) 56531 2023-09-19 No Data Available No Data Availa ble Medication List Documented (1159F) 1159F 2023-09-19 No Data Available No Data Apple ilable Medication Review by prescribing provider or pharmacist documented (1160F) 1160F 2023-09-19 No Data Available No Data Paple ilable BMI obtained (3008F) 3008F 2023-09-19 No [...] 95 for video, modifier 93 for phone 36371 2024-09-06 No Data Available No Data Availa ble Medication Review by prescribing provider or pharmacist documented (1160F) 1160F 2024-09-06 No Data Available No Data Apple ilable SBP < 130 (3074F) 3074F 2024-09-06 No Data Available No Data Available DBP 80-89 (3079F) 3079F 2024-09-06 No Data Available No Data Available Advance Care Directive Advance [...] No Data Available No Data Avail able Pain Assessment - Pain Documented on a [...] next month.Sees optho09/06/24: Has a f/u with Oxygen Plant Operator o 09/07/24.DIABETES CONTINGENCY PLANLast updated: 09/06/2024Member to [...] okDo you have a Durable Power of Roll Out Manager for Healthcare, or Healthcare Proxy Or Guardianship? Yes, POAIf so, Who? Jay King, daughters Theresa and Rosalia King.Do you have a written Advance Directive? Has no formal documentationOther details of discussion: Discussed with memberToday's plan: Encouraged to visit [id number] : AD or surrogate was documented in the medical record. 2024-09-06 Most recent hospital stay(s) or ER visit(s) and precipitating factors: Denies 2024-09-06 Open HEDIS Measure r daija: Reviewed
[2024-12-16 10:21] LABS: Estimated Average Glucose 148 mg/dL; Hemoglobin A1c % 6.8 % (<6.0)
[2024-12-16 10:45] LABS: Alanine Aminotransferase 13 U/L (0-31); Albumin Level 4.1 g/dL (3.5-5.0); Alkaline Phosphatase 72 U/L (39-117); Anion Gap 10 (12-20); Aspartate Amino Transferase 23 U/L (5-31); Bilirubin Total 0.4 mg/dL (0.0-1.0); Blood Urea Nitrogen 19 mg/dL (9-16); Calcium 9.7 mg/dL (8.4-10.2); Carbon Dioxide 30 mmol/L (22-29); Chloride 102 mmol/L (96-108); Cholesterol 192 mg/dL (<200); Estimated Glomerular Filt Rate > 60; Glucose Fasting 141 mg/dL (60-99); HDL Cholesterol 50 mg/dL (>40); LDL Cholesterol Calculated 107 mg/dL (<100); Sodium 138 mmol/L (135-145); Total Protein 7.2 g/dL (6.5-8.0); Triglycerides 179 mg/dL (<150)
== END 2024-12-16 09:21 | disposition home or self-care (01) ==
LOC: HO.HMGCLDS 09:20
PROVIDERS: PCP Internal Medicine; Visit Provider Internal Medicine
DX: E11.9 Type 2 diabetes mellitus without complications (principal); E66.01 Morbid (severe) obesity due to excess calories; Z68.42 Body mass index [BMI] 45.0-49.9, adult
CPT/HCPCS: 36415; 80053; 80061; 83036

== ENCOUNTER 2024-12-24 10:21 | Outpatient (AMB) | payer OTHER, SELFPAY ==
--- NOTE | 2024-12-24 10:22 | A.OFFPC_ITS ---
Vital Signs 12/24/24 10:23 Height 4 ft 11 in Weight 214 lb BMI 43.2 BP 122/62 Blood Pressure Location Rt brachial Position Sitting Respiration 18 Pulse 82 Pulse Source Pulse Oximeter Temp 98.4 F Temp Source Oral Pulse Oximetry (%) 95 Oxygen Delivery Method Room Air Intake Visit Reasons: Annual PE - see comments Intake Note: Pt is here today for PE. Allergies almond Allergy (Unknown, Verified 12/24/24 10:23) itchy throat and eyes SOB apple Allergy (Unknown, Verified 12/24/24 10:23) itchy throat eyes Medication List - Last Reconciled 12/24/24 by Josefa Giordano MD acetaminophen ER (Tylenol 8 Hour) 650 mg PO Q8H albuterol sulfate 90 mcg/actuation 1 inh inhalation Q4-6H PRN 10 days [Bed trasfer bar Bed trasfer bar] cetirizine 10 mg PO DAILY cholecalciferol (vitamin D3) 50 mcg PO DAILY [cleansing wipes As directed] clotrimazole-betamethasone 1-0.05 % 1 appl topical BID 7 days docusate sodium (Colace) 100 mg PO BID empagliflozin (Jardiance) 10 mg PO DAILY flash glucose sensor (FreeStyle Bobby 2 Sensor kit) Use to monitor ongoing blood sugar furosemide (Lasix) 20 mg PO Q OTHER DAY gabapentin 600 mg PO BID Grab bar 18 inch chrome grab bar insulin glargine 54 units (0.54 mL) subcut BEDTIME insulin lispro (Humalog KwikPen (U-100) Insulin) 6 units for glucose 100-160, 10 units for >160 tid q AC; lorazepam 0.5 mg PO DAILY PRN metformin ER 1,000 mg (2 x 500 mg) PO BID Mounjaro (tirzepatide) 15 mg (0.5 mL) subcut QWEEK NS nystatin 1 appl topical DAILY olmesartan 5 mg PO DAILY omeprazole 20 mg PO BID rosuvastatin (Crestor) 40 mg PO DAILY [Tub transfer bar Tub transfer bar] Tobacco use date assessed: 12/24/24 Fall risk assessment: No Falls in past year Last assessed Fall Risk: 12/24/24 Dental Screening Dental Screen Date: 09/24/24 HPI Annual PE - see comments HPI Details Pt presents for PE. PFSH Medical History Cataract HTN (hypertension) Endometrial cancer Lower extremity weakness Annual physical exam Mammogram normal Hyperlipidemia Osteoarthritis Diabetic eye exam Gastritis Diabetes Surgical History S/P LIZET-BSO H/O colonoscopy Hx of cholecystectomy History of section History of total abdominal hysterectomy and bilateral salpingo-oophorectomy History of carpal tunnel surgery History of shoulder surgery History of tubal ligation Family History Father No problems noted. Mother No problems noted. Mother No problems noted. Sister Breast cancer Daughter No problems noted. Daughter No problems noted. Social History Housing: House Alcohol intake: never Patient Tobacco Use Status: Former Tobacco user e-Cigarette/Vaping Use: Never Used Second Hand Smoke Exposure: No service: No Current occupational status: retired Current occupational exposures/hazards: No Sexual orientation: Straight/Heterosexual Gender identity: Female Cognitive needs: No Hearing needs: No Vision needs: Yes Questionnaire PHQ-9 Over the last 2 weeks, how often have you been bothered by any of the following problems? 1. Little interest or pleasure in doing things: more than half the days 2. Feeling down, depressed, or hopeless: several days 3. Trouble falling or staying asleep, or sleeping too much: nearly every day 4. Feeling tired or having little energy: several days 5. Poor appetite or overeating: several days 6. Feeling bad about yourself - or that you are a failure or have let yourself or your family down: not at all 7. Trouble concentrating on things, such as reading the newspaper or watching television: not at all 8. Moving or speaking so slowly that other people could have noticed. Or the opposite - being so fidgety or restless that you have been moving around a lot more than usual: not at all 9. Thoughts that you would be better off or of hurting yourself in some way: not at all Total score: 8 Depression Screening Interpretation: Negative Depression Screening Done: Yes 41202 - PHQ-9 Billing: Yes Source: Developed by Drs. Jacob Ashton, Brook Sheets, Pasquale Ren and colleagues, with an educational tania from [employer]. Thrive Questionnaire Date Thrive assessed: 12/24/24 I am a: Patient What is your living situation today?: I have a steady place to live Within the past 12 months, did the food you bought not last and you didn't have the money to get more?: Never true Within the past 12 months, did you worry whether your food would run out before you got money to buy more?: Never true Do you have trouble paying for medicines?: No Do you have trouble getting transportation to medical appointments?: No Do you have trouble paying your heating and electricity bill?: No Do you have trouble taking care of your child, family member or friend?: Yes Do you have trouble with day-to-day activities such as bathing, preparing meals, shopping, managing finances, etc.?: I choose not to answer this question Are you currently unemployed and looking for a job?: I choose not to answer this question Are you interested in more education?: No Please select the resources that you would like help with: None Currently or been in a relationship where the following occur: No concerns reported THRIVE Score: 0 AUDIT C Alcohol Use Questionnaire (AUDIT-C) 1. How often do you have a drink containing alcohol?: Never 3. How often do you have six or more drinks on one occasion?: Never Total Score: 0 TYREL-7 AMB Questionnaire TYREL-7 Date TYREL - 7 assessed: 12/24/24 Feeling nervous, anxious, or on edge: 0 = Not at all Not being able to stop or control worryin = Not at all Worrying too much about different things: 0 = Not at all Trouble relaxin = Not at all Being so restless that it is hard to sit still: 0 = Not at all Becoming easily annoyed or irritable: 0 = Not at all Feeling afraid as if something awful might happen: 0 = Not at all Total TYREL-7 score (0-4 normal; 5-9 mild; 10-14 moderate; 15-21 severe): 0 Source: Developed by Brook Arevalo, Pasquale Ren and colleagues, with an educational tania from [employer]. TYREL-7 Assessment Billing TYREL-7 Assessment Tool: TYREL-7 Assessment 70754 Review of Systems Const All systems reviewed & are unremarkable except as noted in HPI and below Eyes Reports no additional complaints ENT Reports no additional complaints Card Reports no additional complaints Resp Reports no additional complaints GI Reports no additional complaints Reports no additional complaints Musc Reports no additional complaints Physical exam (Primary Care) Vital Signs: Last Vital Signs Temp 98.4 F 12/24/24 10:23 Pulse 82 12/24/24 10:23 Resp 18 12/24/24 10:23 BP 122/62 12/24/24 10:23 Pulse Ox 95 12/24/24 10:23 Oxygen Delivery Method Room Air 12/24/24 10:23 BMI result Body Mass Index 43.2 Tobacco/Smoking Status: Tobacco use Status Tobacco use date assessed 12/24/24 12/24/24 10:24 Patient Tobacco Use Status Former Tobacco user 12/24/24 10:24 e-Cigarette/Vaping Use Never Used 12/24/24 10:22 PHQ-9: PHQ-9 Score PHQ-9: Total score 8 12/24/24 10:30 Depression Screening Interpretation: Negative Thrive Assessment: Date of Thrive Assessment Date Thrive assessed 12/24/24 12/24/24 10:24 Currently or been in a relationship where the following occur: No concerns reported Const General: no acute distress HENMT Head: Yes normal to inspection General nose exam: Normal external nose present Face and sinus: Yes normal facial exam Mouth: Normal oral and palatal mucosa present Throat: Yes posterior oropharynx normal Eyes General: appearance normal, both eyes and all related structures Neck Neck: Yes no lymphadenopathy and Yes supple Resp Effort & Inspection: normal respiratory effort Auscultation: clear to auscultation bilaterally Cardio Rhythm: regular rhythm Heart sounds: S1 normal heart sound present and S2 normal heart sound present GI Inspection: Yes normal to inspection Palpation (GI): Soft to palpation Percussion: Yes normal to percussion Auscultation: normal bowel sounds Extrem General: Yes no clubbing, cyanosis or edema Coding Level of Care Code Est Pt Prev Care >65y(81822) Diagnoses Diabetes E11.9 Hyperlipidemia E78.5 HTN (hypertension) I10 Additional Codes TYREL-7 Assessment Billing - TYREL-7 Assessment Tool: TYREL-7 Assessment 95052 ([id number]) PHQ-9 - 17445 - PHQ-9 Billing: Yes ([id number]) Assessment & Plan Assessment & Plan (1) Diabetes: Comment: IDDM, A1c 7.4 05/30, Code(s): E11.9 - Type 2 diabetes mellitus without complications Category: Medical Plan: A1c is 6.8, continue ADA diet increase physical activity continue current medications follow-up in 3 months with a fasting labs before (2) Hyperlipidemia: Comment: Cannot swallow atorvastatin 80 mg pill Code(s): E78.5 - Hyperlipidemia, unspecified Category: Medical Plan: Continue Crestor low-cholesterol (3) HTN (hypertension): Code(s): I10 - Essential (primary) hypertension Category: Medical Plan: Continue current medications Orders: Orders Comprehensive Met. Panel 3 Months E11.9 - Type 2 diabetes mellitus without complications, I10 - Essential (primary) hypertension Hemoglobin A1c 3 Months E11.9 - Type 2 diabetes mellitus without complications, E78.5 - Hyperlipidemia, unspecified, I10 - Essential (primary) hypertension Complete Blood Count Auto Diff 3 Months E11.9 - Type 2 diabetes mellitus without complications, E78.5 - Hyperlipidemia, unspecified, I10 - Essential (primary) hypertension Lipid Panel 3 Months E11.9 - Type 2 diabetes mellitus without complications, E78.5 - Hyperlipidemia, unspecified, I10 - Essential (primary) hypertension Microalbumin, Random (w Creat) 3 Months E11.9 - Type 2 diabetes mellitus without complications, E78.5 - Hyperlipidemia, unspecified, I10 - Essential (primary) hypertension Medications: Refilled insulin glargine 54 units (0.54 mL) subcut BEDTIME 60 mL 3RF E11.9 - Type 2 diabetes mellitus without complications insulin lispro (Humalog KwikPen (U-100) Insulin) 6 units for glucose 100-160, 10 units for >160 tid q AC; 15 mL 6RF Mounjaro (tirzepatide) 15 mg (0.5 mL) subcut QWEEK 6 mL 3RF NS furosemide (Lasix) 20 mg PO Q OTHER DAY 45 tabs 1RF
[2024-12-24 10:23] VITALS: BP 122/62; PULSE 82; RESP 18; TEMP 36.9; O2SAT 95; BMI 43.2
--- OUTSIDE RECORDS SUMMARY | 2024-12-24 10:38 | XMS_ITS ---
Author Name Tanmay RAINEAlonso Address [address] [place] [address] Phone [phone] Organization [facility] Care Team Providers Care Consulting Utility Forester Name Role Phone Alonso Donato Unavailable [phone] Reason for Referral Not Available Allergies, adverse reactions, alerts Allergen Type Reaction Severity Status Onset Date [place] (Diagnostic) Allergy to substance (disorder) analphylaxis Unknown [...] 20 mg Tab TAKE 1 TABLET BY [facility] EVERY OTHER DAY 2022-05-31 No Data Available [...] EVENING DIRECTED 2023-08-28 No Data Available Nystatin 407667 UNIT/GM Powder APPLY TOPICALLY EVERY DAY 2023-09-17 No Data Availa ble Nystatin 191462 UNIT/GM Powder apply to affected area BID [...] 0.5 mg Tab TAKE 1 TABLET BY [facility] EVERY DAY NEEDED FOR ANXIETY.TAKE 1 TABLET [...] N/A Sees optho: Has a f/u with Field Talent Qualification Specialist o 09/07/24. Other problems related to medical [...] (do not use for phone, instead use 37331-80) [facility], ([place]) 08[place]28/20[place] Type 2 diabetes mellitus wit h diabetic cataractLong term (current) use of insulinType 2 diabetes mellitus with diabetic neuropathy, unspecifiedMorbid (severe) obesity due to excess caloriesBody mass index (BMI) 40.0-44.9, adultGastro-esophageal reflux disease without esophagitisHyperlipidemia, unspecifiedEssential (primary) hypertension New patient,40-59min; chronic exacerbation, 2 stable chronic or 1 acute illness add add modifier 95 for video (do not use for phone, instead use 60042-06) [facility] ([place]) [place] New patient,40-59min; chronic exacerbation, 2 stable chronic or 1 acute illness add add modifier 95 for video (do not use for phone, instead use 40651-09) [facility] New patient,40-59min; chronic exacerbation, 2 stable chronic or 1 acute illness add add modifier 95 for video (do not use for phone, instead use 66373-58) [facility] 08[place]28/[place] New patient,40-59min; chronic exacerbation, 2 stable chronic or 1 acute illness add add modifier 95 for video (do not use for phone, instead use 18168-27) [facility] 08[place]28/[place] New patient,40-59min; chronic exacerbation, 2 stable chronic or 1 acute illness add add modifier 95 for video (do not use for phone, instead use 97553-11) [facility] New patient,40-59min; chronic exacerbation, 2 stable chronic or 1 acute illness add add modifier 95 for video (do not use for phone, instead use 14199-71) [facility] New patient,40-59min; chronic exacerbation, 2 stable chronic or 1 acute illness add add modifier 95 for video (do not use for phone, instead use 33218-44) [facility] 08/28/[place] Estab. patient 30-39min; chronic exacerbation, 2 stable chronic or 1 acute illness add add modifier 95 for video, (do not use for phone, instead use 50899-21) [facility] 09[place]19/2023 Type 2 diabetes mellitus wit h [...] (do not use for phone, instead use 73595-71) [facility] 09[place]19[place]20[place] Estab. patient 30-39min; chronic exacerbation, 2 stable chronic or 1 acute illness add add modifier 95 for video, (do not use for phone, instead use 10231-09) [facility] 09[place]19/20[place] Estab. patient 30-39min; chronic exacerbation, 2 stable chronic or 1 acute illness add add modifier 95 for video, (do not use for phone, instead use 14083-54) [facility] 09/19/20[place] Estab. patient 30-39min; chronic exacerbation, 2 stable chronic or 1 acute illness add add modifier 95 for video, (do not use for phone, instead use 97019-18) [facility] 09[place]19/20[place] Estab. patient 30-39min; chronic exacerbation, 2 stable chronic or 1 acute illness add add modifier 95 for video, (do not use for phone, instead use 97673-76) [facility] 09/19/20[place] Estab. patient 30-39min; chronic exacerbation, 2 stable chronic or 1 acute illness add add modifier 95 for video, (do not use for phone, instead use 97551-44) [facility] 09/19/2023 Estab. patient 30-39min; chronic exacerbation, 2 stable chronic or 1 acute illness add add modifier 95 for video, (do not use for phone, instead use 13365-57) [facility] 09[place]19/2023 Estab. patient 30-39min; chronic exacerbation, 2 stable chronic or 1 acute illness add add modifier 95 for video, (do not use for phone, instead use 10880-48) [facility] 09/19/2023 Estab. patient 20-29min; 1 stable chronic or 2 minor; add add modifier 95 for video, modifier 93 for phone [facility] 09/06/2024 Type 2 diabetes mellitus wit h [...] modifier 95 for video, modifier 93 for [facility], ([place]) 09/06/2024 Estab. patient 20-29min; 1 stable chronic or 2 minor; add add modifier 95 for video, modifier 93 for phone [facility], ([place]) 09/06/2024 Estab. patient 20-29min; 1 stable chronic or 2 minor; add add modifier 95 for video, modifier 93 for [facility], [place] 09/06/2024 Estab. patient 20-29min; 1 stable chronic or 2 minor; add add modifier 95 for video, modifier 93 for [facility] 09/06/2024 Estab. patient 20-29min; 1 stable chronic or 2 minor; add add modifier 95 for video, modifier 93 for phone [facility] 09/06/20[place] Estab. patient 20-29min; 1 stable chronic or 2 minor; add add modifier 95 for video, modifier 93 for [facility] 09/06/2024 Estab. patient 20-29min; 1 stable chronic or 2 minor; add add modifier 95 for video, modifier 93 for phone [facility] 09/06/20[place] Estab. patient 20-29min; 1 stable chronic or 2 minor; add add modifier 95 for video, modifier 93 for phone [facility] 09/06/2024 Vital Signs Date of Collection Vitals [...] tive Time Current Smoking Status Never smoker 2024-12-06 0 Sex Female History of Procedures Procedures Service Procedure code Service date Servicing provider Phone# New patient,40-59min; chronic exacerbation, 2 stable chronic or 1 acute illness add add modifier 95 for video (do not use for phone, instead use 51761-86) [id number] 2022-08-28 No Data Available No Data Availa [...] (do not use for phone, instead use 92432-25) [id number] 2023-09-19 No Data Available No Data Availa [...] ble Advance care planning discussed and documented advance care plan or surrogate decision-maker was [...] 95 for video, modifier 93 for phone [id number] 2024-09-06 No Data Available No Data Availa [...] ble Advance care planning discussed and documented advance care plan or surrogate decision-maker was [...] modifier 95Advance care planning discussed and documented advance care plan or surrogate decision-maker was documented in the medical record. (1123F)Advance care planning discussed and documented in the medical record beneficiary/patient did not wish to or was [...] record (1158F)Advance care planning discussed and documented advance care plan or surrogate decision-maker was documented in the medical record. (1123F)Estab. patient 20-29min; 1 stable chronic or 2 minor; add add modifier 95 for video, modifier 93 for phoneMedication List Documented (1159F)Pain Assessment - Pain Documented on a Pain Scale (1125F)Medication Review by prescribing provider or pharmacist documented (1160F)Continue to see PCP. [facility] or disease [...] next month.Sees optho09/06/24: Has a f/u with Field Talent Qualification Specialist o 09/07/24.DIABETES CONTINGENCY PLANLast updated: 09/06/2024Member to [...] okDo you have a Durable Power of Medical Imaging Technologist for Healthcare, or Healthcare Proxy Or Guardianship? Yes, POAIf so, Who? Jay King, daughters Theresa and Rosalia King.Do you have a written Advance Directive? Has no formal documentationOther details of discussion: Discussed with memberToday's plan: Encouraged to visit Yasuu1123F : AD or surrogate was documented in the medical record. 2024-09-06 Most recent hospital stay(s) or ER visit(s) and precipitating factors: Denies 2024-09-06 Open HEDIS Measure r daija: Reviewed
== END 2024-12-24 10:55 | disposition home or self-care (01) ==
LOC: HO.HMCC 10:22
PROVIDERS: PCP Internal Medicine; Visit Provider Internal Medicine
DX: Z00.00 Encounter for general adult medical examination without abnormal findings (principal); E11.69 Type 2 diabetes mellitus with other specified complication; E78.5 Hyperlipidemia, unspecified; I10 Essential (primary) hypertension

== ENCOUNTER → 2024-12-24 10:21 | Outpatient (BNVA) | payer OTHER, SELFPAY | PROVIDERS: PCP Internal Medicine; Visit Provider Internal Medicine | DX: Z00.00 Encounter for general adult medical examination without abnormal findings (principal); I10 Essential (primary) hypertension; E11.9 Type 2 diabetes mellitus without complications; E78.5 Hyperlipidemia, unspecified | CPT/HCPCS: 96127; 99397 ==

== ENCOUNTER 2025-02-28 08:25 | Outpatient (AMB) | payer OTHER, SELFPAY ==
--- OUTSIDE RECORDS SUMMARY | 2024-11-05 08:00 | XMS_ITS ---
Author Organization [facility] Address [address] [place] [address] Care Team Providers Care Psychology Physician Name Role Phone Giuliana LEDESMA, Josefa Primary Care Provider Sandee Ordaz [phone] Encounters Encounter Location Date Provider Diagnosis [address] [address] 11/05/2024 Sandee Chen Plan Of Treatment Next Appt Details Provider Name:Sandee rodriguez, 04/01/2025 01:45:00 PM, [address] [place] [address], [address], [address], Progress Notes * Emily KINGDOB:1950 (74 yo F)Acc No.[id number]:11/05/2024 Progress Note Patient: Emily CORDERO Provider: Yuriy Chen DPM :1950 A ge:74 Y S ex:Female Date:11/05/2024 Address:[address] [facility] Pcp:Josefa Giordano MD Subjective: * Chief Complaints: * * Medical History: Objective: * Vitals: Assessment: Plan: * Treatment: * Images: * The named appointment provid er may or may not be the originator of this progress note, and it is not deemed complete until electronically signed by the appointment provider. Sign off status: Pending * Provider: Yuriy Chen DPM Date: 0 11/05/2024 Generated for Patricia causey/Fredy/Liza on: 0 02/28/2025 08:49 AM EDT
--- NOTE | 2025-02-28 08:26 | A.OFFPC_ITS ---
Vital Signs 02/28/25 08:27 Height 4 ft 11 in Weight 213 lb BMI 43.0 BP 118/70 Blood Pressure Location Lt brachial Position Sitting Pulse 76 Pulse Source Pulse Oximeter Pulse Oximetry (%) 95 Intake Visit Reasons: eye lid surgery 03/03/25 Intake Note: Dr. Salas at [facility], eyelid sugery, no labs or EKG needed ( unless symptomatic or has heart condition) Allergies almond Allergy (Unknown, Verified 12/24/24 10:23) itchy throat and eyes SOB apple Allergy (Unknown, Verified 12/24/24 10:23) itchy throat eyes Tobacco use date assessed: 12/24/24 Fall risk assessment: No Falls in past year Last assessed Fall Risk: 02/28/25 Dental Screening Dental Screen Date: 09/24/24 HPI eye lid surgery 03/03/25 HPI Details Patient presents for a preop for blepharoplasty. Insulin-dependent diabetes hyperlipidemia and hypertension are controlled on current medications. Patient induced shortness or breath chest pain palpitations pulmonary GI or complaints [facility] Medical History (Updated 02/28/25 @ 08:59 by Josefa Giordano MD) Cataract HTN (hypertension) Endometrial cancer Lower extremity weakness Annual physical exam Mammogram normal Hyperlipidemia Osteoarthritis Diabetic eye exam Gastritis Diabetes Surgical History S/P LIZET-BSO H/O colonoscopy Hx of cholecystectomy History of section History of total abdominal hysterectomy and bilateral salpingo-oophorectomy History of carpal tunnel surgery History of shoulder surgery History of tubal ligation Family History Father No problems noted. Mother No problems noted. Mother No problems noted. Sister Breast cancer Daughter No problems noted. Daughter No problems noted. Social History Housing: House Alcohol intake: never Patient Tobacco Use Status: Former Tobacco user e-Cigarette/Vaping Use: Never Used Second Hand Smoke Exposure: No service: No Current occupational status: retired Current occupational exposures/hazards: No Sexual orientation: Straight/Heterosexual Gender identity: Female Cognitive needs: No Hearing needs: No Vision needs: Yes Questionnaire PHQ-9 Over the last 2 weeks, how often have you been bothered by any of the following problems? 1. Little interest or pleasure in doing things: more than half the days 2. Feeling down, depressed, or hopeless: several days 3. Trouble falling or staying asleep, or sleeping too much: nearly every day 4. Feeling tired or having little energy: several days 5. Poor appetite or overeating: several days 6. Feeling bad about yourself - or that you are a failure or have let yourself or your family down: not at all 7. Trouble concentrating on things, such as reading the newspaper or watching television: not at all 8. Moving or speaking so slowly that other people could have noticed. Or the opposite - being so fidgety or restless that you have been moving around a lot more than usual: not at all 9. Thoughts that you would be better off or of hurting yourself in some way: not at all Total score: 8 Depression Screening Interpretation: Negative Depression Screening Done: Yes 67714 - PHQ-9 Billing: Yes Source: Developed by Drs. Jacob Ashton, Brook Sheets, Pasquale Ren and colleagues, with an educational tania from [employer]. Thrive Questionnaire Date Thrive assessed: 12/24/24 I am a: Patient What is your living situation today?: I have a steady place to live Within the past 12 months, did the food you bought not last and you didn't have the money to get more?: Never true Within the past 12 months, did you worry whether your food would run out before you got money to buy more?: Never true Do you have trouble paying for medicines?: No Do you have trouble getting transportation to medical appointments?: No Do you have trouble paying your heating and electricity bill?: No Do you have trouble taking care of your child, family member or friend?: Yes Do you have trouble with day-to-day activities such as bathing, preparing meals, shopping, managing finances, etc.?: I choose not to answer this question Are you currently unemployed and looking for a job?: I choose not to answer this question Are you interested in more education?: No Please select the resources that you would like help with: None Currently or been in a relationship where the following occur: No concerns reported THRIVE Score: 0 TYREL-7 AMB Questionnaire TYREL-7 Date TYREL - 7 assessed: 12/24/24 Source: Developed by Drs. Jacob Ashton, Brook Sheets, Pasquale Ren and colleagues, with an educational tania from [employer]. Review of Systems Const All systems reviewed & are unremarkable except as noted in HPI and below Eyes Reports no additional complaints ENT Reports no additional complaints Card Reports no additional complaints Resp Reports no additional complaints GI Reports no additional complaints Reports no additional complaints Physical exam (Primary Care) Vital Signs: Last Vital Signs Pulse 76 02/28/25 08:27 BP 118/70 02/28/25 08:27 Pulse Ox 95 02/28/25 08:27 BMI result Body Mass Index 43.0 Tobacco/Smoking Status: Tobacco use Status Tobacco use date assessed 12/24/24 02/28/25 08:27 Patient Tobacco Use Status Former Tobacco user 02/28/25 08:27 e-Cigarette/Vaping Use Never Used 02/28/25 08:27 PHQ-9: PHQ-9 Score PHQ-9: Total score 8 02/28/25 08:36 Depression Screening Interpretation: Negative Thrive Assessment: Date of Thrive Assessment Date Thrive assessed 12/24/24 02/28/25 08:27 Currently or been in a relationship where the following occur: No concerns reported Const General: no acute distress HENMT Head: Yes normal to inspection Face and sinus: Yes normal facial exam Eyes General: appearance normal, both eyes and all related structures Neck Neck: Yes no lymphadenopathy and Yes supple Resp Effort & Inspection: normal respiratory effort Auscultation: clear to auscultation bilaterally Cardio Rhythm: regular rhythm Heart sounds: S1 normal heart sound present and S2 normal heart sound present GI Inspection: Yes normal to inspection Palpation (GI): Soft to palpation Percussion: Yes normal to percussion Auscultation: normal bowel sounds Extrem General: Yes no clubbing, cyanosis or edema Coding Level of Care Code Est Pt Level 4 (53075) Diagnoses HTN (hypertension) I10 Hyperlipidemia E78.5 Diabetes E11.9 Ptosis of both upper eyelids H02.403 Additional Codes PHQ-9 - 40893 - PHQ-9 Billing: Yes ([id number]) Assessment & Plan Assessment & Plan (1) HTN (hypertension): Code(s): I10 - Essential (primary) hypertension Category: Medical Plan: Continue olmesartan (2) Hyperlipidemia: Code(s): E78.5 - Hyperlipidemia, unspecified Category: Medical Plan: Continue statin (3) Diabetes: Comment: IDDM, A1c 7.4 05/30, Code(s): E11.9 - Type 2 diabetes mellitus without complications Category: Medical Plan: A1c was 6.8 in December. Continue current medications ADA diet increase physical activity weight loss discussed with the patient (4) Ptosis of both upper eyelids: Code(s): H02.403 - Unspecified ptosis of bilateral eyelids Category: Medical Plan: Patient is medically cleared for bilateral blepharoplasty
[2025-02-28 08:27] VITALS: BP 118/70; PULSE 76; O2SAT 95; BMI 43.0
--- OUTSIDE RECORDS SUMMARY | 2025-02-28 08:49 | XMS_ITS ---
Author Name Leif NI Michelle Lisa Address [address] [place] [address] Phone [phone] Organization [facility] Care Team Providers Care Carpentry Supervisor Name Role Phone Michelle Yadav Unavailable [phone] Reason for Referral Not Available Allergies, adverse reactions, alerts Allergen Type Reaction Severity Status Onset Date [place] (Diagnostic) Allergy to substance (disorder) analphylaxis Unknown [...] 20 mg Tab TAKE 1 TABLET BY [facility] EVERY OTHER DAY 2022-05-31 No Data [...] EVENING DIRECTED 2023-08-28 No Data Available Nystatin 993646 UNIT/GM Powder APPLY TOPICALLY EVERY DAY 2023-09-17 No Data Availa ble Nystatin 665249 UNIT/GM Powder apply to affected area BID [...] 0.5 mg Tab TAKE 1 TABLET BY [facility] EVERY DAY NEEDED FOR ANXIETY.TAKE 1 [...] N/A Sees optho: Has a f/u with Green Building Energy Engineer o 09/07/24. Other problems related to medical [...] (do not use for phone, instead use 57562-85) [facility], ([place]) 08/28/2022 Type 2 diabetes mellitus wit h diabetic cataractLong term (current) use of insulinType 2 diabetes mellitus with diabetic neuropathy, unspecifiedMorbid (severe) obesity due to excess caloriesBody mass index (BMI) 40.0-44.9, adultGastro-esophageal reflux disease without esophagitisHyperlipidemia, unspecifiedEssential (primary) hypertension New patient,40-59min; chronic exacerbation, 2 stable chronic or 1 acute illness add add modifier 95 for video (do not use for phone, instead use 99334-38) [facility], ([place]) 08/28/2022 New patient,40-59min; chronic exacerbation, 2 stable chronic or 1 acute illness add add modifier 95 for video (do not use for phone, instead use 38081-89) [facility] ([place] 08[place]28/20[place] New patient,40-59min; chronic exacerbation, 2 stable chronic or 1 acute illness add add modifier 95 for video (do not use for phone, instead use 35389-36) [facility] 08/28/2022 New patient,40-59min; chronic exacerbation, 2 stable chronic or 1 acute illness add add modifier 95 for video (do not use for phone, instead use 85115-94) [facility] 08/28/2022 New patient,40-59min; chronic exacerbation, 2 stable chronic or 1 acute illness add add modifier 95 for video (do not use for phone, instead use 15533-45) [facility], ([place] 08/28/2022 New patient,40-59min; chronic exacerbation, 2 stable chronic or 1 acute illness add add modifier 95 for video (do not use for phone, instead use 54487-86) [facility] ([place] 08/28/2022 New patient,40-59min; chronic exacerbation, 2 stable chronic or 1 acute illness add add modifier 95 for video (do not use for phone, instead use 52585-58) [facility], ([place]) 08/28/2022 Estab. patient 30-39min; chronic exacerbation, 2 stable chronic or 1 acute illness add add modifier 95 for video, (do not use for phone, instead use 89233-51) [facility], ([place]) 09/19/2023 Type 2 diabetes mellitus wit h [...] (do not use for phone, instead use 44289-79) [facility] ([place] 09/19/2023 Estab. patient 30-39min; chronic exacerbation, 2 stable chronic or 1 acute illness add add modifier 95 for video, (do not use for phone, instead use 47428-00) [facility], ([place] 09/19/2023 Estab. patient 30-39min; chronic exacerbation, 2 stable chronic or 1 acute illness add add modifier 95 for video, (do not use for phone, instead use 98289-67) [facility], ([place] 09/19/2023 Estab. patient 30-39min; chronic exacerbation, 2 stable chronic or 1 acute illness add add modifier 95 for video, (do not use for phone, instead use 09513-12) [facility] ([place]) 09/19/2023 Estab. patient 30-39min; chronic exacerbation, 2 stable chronic or 1 acute illness add add modifier 95 for video, (do not use for phone, instead use 52825-47) [facility] ([place] 09/19/2023 Estab. patient 30-39min; chronic exacerbation, 2 stable chronic or 1 acute illness add add modifier 95 for video, (do not use for phone, instead use 17100-12) [facility], ([place] 09/19/2023 Estab. patient 30-39min; chronic exacerbation, 2 stable chronic or 1 acute illness add add modifier 95 for video, (do not use for phone, instead use 67477-95) [facility] ([place] 09/19/2023 Estab. patient 30-39min; chronic exacerbation, 2 stable chronic or 1 acute illness add add modifier 95 for video, (do not use for phone, instead use 10785-47) [facility] ([place] 09/19/2023 Estab. patient 20-29min; 1 stable chronic or 2 minor; add add modifier 95 for video, modifier 93 for phone [facility], ([place] 09/06/2024 Type 2 diabetes mellitus wit h [...] 95 for video, modifier 93 for phone [facility], ([place] 09/06/2024 Estab. patient 20-29min; 1 stable chronic or 2 minor; add add modifier 95 for video, modifier 93 for phone [facility], ([place]) 09/06/2024 Estab. patient 20-29min; 1 stable chronic or 2 minor; add add modifier 95 for video, modifier 93 for [facility], ([place]) 09/06/2024 Estab. patient 20-29min; 1 stable chronic or 2 minor; add add modifier 95 for video, modifier 93 for [facility], ([place] 09/06/2024 Estab. patient 20-29min; 1 stable chronic or 2 minor; add add modifier 95 for video, modifier 93 for phone [facility], ([place] 09/06/2024 Estab. patient 20-29min; 1 stable chronic or 2 minor; add add modifier 95 for video, modifier 93 for phone [facility], ([place] 09/06/2024 Estab. patient 20-29min; 1 stable chronic or 2 minor; add add modifier 95 for video, modifier 93 for phone [facility], ([place]) 09/06/2024 Estab. patient 20-29min; 1 stable chronic or 2 minor; add add modifier 95 for video, modifier 93 for phone [facility], ([place]) 09/06/2024 Vital Signs Date of Collection Vitals [...] tive Time Current Smoking Status Never smoker 2025-02-05 5 Sex Female History of Procedures Procedures Service Procedure code Service date Servicing provider Phone# New patient,40-59min; chronic exacerbation, 2 stable chronic or 1 acute illness add add modifier 95 for video (do not use for phone, instead use 97130-65) [id number] 2022-08-28 No Data Available No Data Availa [...] (do not use for phone, instead use 69891-84) [id number] 2023-09-19 No Data Available No Data Availa [...] 95 for video, modifier 93 for phone 98887 2024-09-06 No Data Available No Data Availa [...] documented (1160F)Continue to see [facility]CP. [facility] [...] next month.Sees optho09/06/24: Has a f/u with Green Building Energy Engineer o 09/07/24.DIABETES CONTINGENCY PLANLast updated: 09/06/2024Member to [...] okDo you have a Durable Power of Electric Meter Installer Helper for Healthcare, or Healthcare Proxy Or Guardianship? Yes, POAIf so, Who? Jay King, daughters Theresa and Rosalia King.Do you have a written Advance Directive? Has no formal documentationOther details of discussion: Discussed with memberToday's plan: Encouraged to visit [id number] : AD or surrogate was documented in the medical record. 2024-09-06 Most recent hospital stay(s) or ER visit(s) and precipitating factors: Denies 2024-09-06 Open HEDIS Measure ramy choe: Reviewed
--- OUTSIDE RECORDS SUMMARY | 2025-02-28 08:50 | XMS_ITS | Patient Health Record ---
Author Organization [facility] Address [address] [place] [address] Care Team Providers Care Long Term Care Phlebotomist Name Role Phone Josefa Giordano MD Primary Care Provider Jacob Kimble Unavailable [phone] Allergies No Known Allergies Reason For Referral [...] W/U Status Risk Notes Problem Esophageal reflux (245370045) Esophageal reflux (K21.9) Active confirmed Problem 518032647 Gastro-esophagea l reflux disease without esophagitis (K21.9) Active confirmed Problem 490664621 Encounter for screening for malignant neoplasm of colon (Z12.11) Active confirmed Problem Screening for malignant neoplasm of rectum (014704765) Encounter for screening for malignant neoplasm of rectum (Z12.12) Active confirmed Problem 901039177 Gastroesophageal reflux disease without esophagitis (K21.9) Active confirmed Problem 32200613 Preprocedural examination (Z01.818) Active confirmed Problem 912189990 Barretts esophag us without dysplasia (K22.70) Active confirmed Problem 394194787 Abdominal pain, left upper quadrant (R10.12) Active confirmed Problem 571306893 H/O long-term treatment with high-risk medication (Z92.29) Active confirmed Problem 511693479 Encounter for long-term use of non-steroidal anti-inflammatory medication (Z79.1) Active confirmed Problem Silva esophagu s (K22.70) Active confirmed Problem 75741664 Duodenal ulcer (K26.9) Active confirmed Problem 3632552 H. pylori infect ion (A04.8) Active confirmed Plan Of Treatment Pending Test Test Name Order Date Pathology 03/01/2022 Future Test Test Name Order Date UPPER GI ENDOSCOPY 05/26/2015 COLONOSCOPY 05/26/2015 UPPER GI ENDOSCOPY 11/12/2018 UPPER GI ENDOSCOPY 01/03/2022 Insurance Providers Payer Name Payer Address Payer Phone Subscriber Number Group Number Insured Name Patient Relationship to Insured Coverage Start Date Coverage End Date [facility] [address] [address] [place] [address] [id number] BLANDJANES KNIGHT Self - patient is the insured MEDICAID OF [facility] [address] [place] [address] [id number] BALDO JANES Self - patient is the insured MEDICARE OF [place] [address] [place] [address] [phone] [id number] JANES BLAND Self - patient is the insured Medical (General) History Medical History History ICD Code IDDM Hypertension Hyperlipidemia Obesity GERD Fibromyalgia Sleep apnea--uses a CPAP machine Denies VT,CVA,Lung disease,renal disease Neg. colonoscopy in 05/2005 with [...]
--- OUTSIDE RECORDS SUMMARY | 2025-02-28 08:50 | XMS_ITS | Clinical Summary ---
Author Organization [facility] Address [address] [place] [phone] Phone Care Team Providers Care Plaster Mold Maker Name Role Phone Raul Silva MD Primary Care Provider [phone] Surgical History Surgery Date Site/Laterality Comments OTHER SURGICAL HISTORY PROCEDURE: [place] CORACOACROMIAL LIGAMENT RELEAS W/WOACROMIOPLASTY CHOLECYSTECTOMY PROCEDURE: LAPAROSCOPY, CHOLECYSTECTOMY CARPAL TUNNEL RELEASE PROCEDURE: HISTORICAL CARPAL TUNNEL REL; COMMENT: L SECTION 1975 PROCEDURE: HISTORICAL DELIVERY SECTION 1974 PROCEDURE: HISTORICAL DELIVERY HYSTERECTOMY 08/19/13 PROCEDURE: HISTORICAL TOTAL HYSTERECTOMY WITH BSO; COMMENT: Dr. Trejo, for endometrial ca. 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 Trejo) Family History [...] PM EST [facility]ointment [facility] [address] [phone] Health Maintenance Due Date Last Done Comments Diabetes: Annual GFR (Glomerular Filtration Rate) 1952 Diabetes: Annual Foot Exam 1962 Diabetes: Annual Retina Eye Exam 1962 DTaP,Tdap,and Td Vaccines (1 - Tdap) 1971 RSV Immunization Adult Patients (1 - Risk 60-74 years 1-dose series) 2012 Pneumococcal Vaccine: 50+ Years (2 of 2 - PPSV23) 04/17/2022 04/17/2021, 05/31/2019 Cholesterol Screening (Lipid Panel) 06/04/2022 Colorectal Cancer Screening: Colonoscopy 06/04/2022 Falls Risk Assessment 06/04/2022 Hepatitis C Screening 06/04/2022 Medicare Annual Wellness Visit 06/04/2022 Osteoporosis Screening (Bone Density Screening) 06/04/2022 Social Influencers of Health Screening 06/04/2022 Diabetes: Annual Urine Albumin-Creatinine Ratio (uACR) 06/13/2022 Diabetes: Blood Sugar Control Test (HGBA1C) 06/13/2022 Depression Screening 07/07/2024 COVID-19 Vaccine () 11/08/2024 05/11/2024, 05/15/2023, 05/09/2022, Additional history exists Influenza Vaccine (#1) 2025 , 05/15/2023, 06/04/2022, Additional history exists Breast Cancer Screening 05/29/2026 05/29/20 24, 05/27/2023, 05/24/2022, Additional history exists Zoster Vaccines Completed 07/30/2019, 05/08, 02/10/2014 HIB Vaccines Aged Out No longer eligi [...] age to complete this topic Meningococcal B Vaccine Aged Out No l onger eligible based on patient's age to complete [...] year. Mammo Location: [facility], [address] [place] [address], [address], . -------- FINAL REPORT -------- Dictated By: Jasmyn Martinez Dictated Date: 05/31/2024 11:11 ET Assigned Physician: Jasmyn Martinez Reviewed and Electronically Signed By: Jasmyn Martinez Signed Date: 05/31/2024 11:12 ET Workstation ID: [id number] Transcribed By: Self Edit Transcribed Date: 05/31/2024 11:11 ET Narrative 05/31/2024 11:12 AM EST HISTORY: Screening. Sister had breast carcinoma in her 50's. COMPARISON: 06/02/23, 05/27/23, 05/24/22, 05/22/21 TECHNIQUE: Bilateral digital breast tomosynthesis was performed in the CC and MLO projections. Computer aided detection with Canonical AI 3D 3.1 was employed. BREAST DENSITY: [...] CCand MLO projections. Computer aided detection with iCAD ProFound AI 3D 3.1was employed. BREAST DENSITY: B [...] year. Mammo Location: [facility], [address] [place] [address], [address], . -------- FINAL REPORT -------- Dictated By: Jasmyn Martinez Dictated Date: 05/31/2024 11:11 ET Assigned Physician: Jasmyn Martinez Reviewed and Electronically Signed By: Jasmyn Martinez Signed Date: 05/31/2024 11:12 ET Workstation ID: [id number] Transcribed By: Self Edit Transcribed Date: 05/31/2024 11:11 ET us Self Referral Sppl IMG BI PROCEDURES Final Resul t from Last 3 Months or Most Recently Relevant to Health Maintenance Insurance MEDICAID - [place] [employer] MEDICARE Care Teams Plaster Mold Maker Relationship Specialty Start Date End Date Raul Silva MD [address] PCP - General Pediatrics 05/21/13
== END 2025-02-28 09:01 | disposition home or self-care (01) ==
PROVIDERS: PCP Internal Medicine; Visit Provider Internal Medicine
DX: I10 Essential (primary) hypertension (principal); E78.5 Hyperlipidemia, unspecified; E11.9 Type 2 diabetes mellitus without complications; H02.403 Unspecified ptosis of bilateral eyelids

== ENCOUNTER → 2025-02-28 08:25 | Outpatient (BNVA) | payer OTHER, SELFPAY | PROVIDERS: PCP Internal Medicine; Visit Provider Internal Medicine | DX: I10 Essential (primary) hypertension (principal); E78.5 Hyperlipidemia, unspecified; E11.9 Type 2 diabetes mellitus without complications; H02.403 Unspecified ptosis of bilateral eyelids | CPT/HCPCS: 96127; 99212 ==

== ENCOUNTER 2025-03-31 08:32 | Outpatient (REF) | payer OTHER, SELFPAY ==
[2025-03-31 10:30] LABS: MANUAL DIFF FLAG NO
[2025-03-31 10:46] LABS: Hematocrit 40.8 % (37.0-47.0); Hemoglobin 13.5 g/dl (12.0-16.0); Imm Gran Abs Auto 0.02 X10*3/uL (0.00-0.03); Imm Gran Pct Auto 0.3 % (0.0-0.4); Lymphocytes Absolute Auto 2.3 X10*3/uL (1.2-4.9); Mean Corpuscular HGB Conc 33.1 g/dl (31.0-35.0); Mean Corpuscular Hemoglobin 28.4 pg (27.0-33.0); Mean Corpuscular Volume 85.7 fL (80.0-98.0); NRBC Abs Auto 0.000 X10*3/uL (0.0-0.012); NRBC Pct Auto 0.0 /100WBC (0.0-0.2); Platelet Count 293 X10*3/uL (160-400); Red Blood Count 4.76 X10*6/uL (4.20-5.50); Total Hemoglobin (HGBA1C) 3436.5197 umol/L; White Blood Count 7.3 X10*3/uL (4.8-10.8)
[2025-03-31 13:40] LABS: Alanine Aminotransferase 14 U/L (0-31); Albumin Level 4.0 g/dL (3.5-5.0); Alkaline Phosphatase 79 U/L (39-117); Anion Gap 11 (12-20); Aspartate Amino Transferase 26 U/L (5-31); Blood Urea Nitrogen 17 mg/dL (9-16); Calcium 9.7 mg/dL (8.4-10.2); Carbon Dioxide 32 mmol/L (22-29); Chloride 102 mmol/L (96-108); Cholesterol 165 mg/dL (<200); Estimated Glomerular Filt Rate > 60; HDL Cholesterol 56 mg/dL (>40); Potassium 4.2 mmol/L (3.3-5.1); Sodium 141 mmol/L (135-145); Total Protein 7.4 g/dL (6.5-8.0); Triglycerides 141 mg/dL (<150)
[2025-04-05 16:19] LABS: Vitamin D 25-OH, D2 <4 ng/mL; Vitamin D 25-OH, D3 38 ng/mL; Vitamin D 25-OH, Total 38 ng/mL (30-100)
== END 2025-03-31 08:33 | disposition home or self-care (01) ==
LOC: HO.HMGCLDS 08:32
PROVIDERS: PCP Internal Medicine; Visit Provider Internal Medicine
DX: I10 Essential (primary) hypertension (principal); E11.9 Type 2 diabetes mellitus without complications; E78.5 Hyperlipidemia, unspecified; H02.403 Unspecified ptosis of bilateral eyelids; Z79.4 Long term (current) use of insulin; Z79.84 Long term (current) use of oral hypoglycemic drugs; Z79.85 Long-term (current) use of injectable non-insulin antidiabetic drugs; Z79.899 Other long term (current) drug therapy
CPT/HCPCS: 36415; 80053; 80061; 82043; 82306; 82570; 83036; 84443; 85025; 99212

== ENCOUNTER 2025-03-31 08:32 | Outpatient (AMB) | payer OTHER, SELFPAY ==
--- OUTSIDE RECORDS SUMMARY | 2024-11-05 08:00 | XMS_ITS ---
Author Organization [facility] Address [address] [place] [address] Care Team Providers Care Repairer Recreational Vehicle Name Role Phone Giuliana LEDESMA, Josefa Primary Care Provider Sandee Ordaz [phone] Encounters Encounter Location Date Provider Diagnosis [address] [address] 11/05/2024 Sandee Chen Plan Of Treatment Next Appt Details Provider Name:Sandee rodriguez, 07/22/2025 12:30:00 PM, [address] [place] [address], [place] [address], [place], [address], Progress Notes * Emily KINGDOB:1950 (74 yo F)Acc No.[id number]:11/05/2024 Progress Note Patient: Emily CORDERO Provider: Yuriy Chen DPM :1950 A ge:74 Y S ex:Female Date:11/05/2024 Address:[address] [facility] Pcp:Josefa Giordano MD Subjective: * Chief Complaints: [...] 11/05/2024 Generated for Patricia causey/Fredy/Liza on: 0 03/31/2025 09:05 AM EDT
--- NOTE | 2025-03-31 08:34 | MHC.PC.OV ---
Vital Signs 03/31/25 08:36 Height 4 ft 11 in Weight 214 lb BMI 43.2 BP 120/66 Blood Pressure Location Lt brachial Position Sitting Respiration 18 Pulse 92 Pulse Source Pulse Oximeter Temp 98.4 F Temp Source Oral Pulse Oximetry (%) 97 Oxygen Delivery Method Room Air Intake Visit Reasons: Pre op upper eyelid surgery 04/12/25 Intake Note: Pt is here today for pre op visit. Pt is having upper eyelid surgery on 04/12/25. Allergies almond Allergy (Unknown, Verified 03/31/25 08:42) itchy throat and eyes SOB apple Allergy (Unknown, Verified 03/31/25 08:42) itchy throat eyes Medication List - Last Reconciled 03/31/25 by Josefa Giordano MD acetaminophen ER (Tylenol 8 Hour) 650 mg PO Q8H albuterol sulfate 90 mcg/actuation 1 inh inhalation Q4-6H PRN 10 days [Bed trasfer bar Bed trasfer bar] cetirizine 10 mg PO DAILY cholecalciferol (vitamin D3) 50 mcg PO DAILY [cleansing wipes As directed] clotrimazole-betamethasone 1-0.05 % 1 appl topical BID 7 days docusate sodium (Colace) 100 mg PO BID empagliflozin (Jardiance) 10 mg PO DAILY flash glucose sensor (FreeStyle Bobby 2 Sensor kit) Use to monitor ongoing blood sugar furosemide (Lasix) 20 mg PO Q OTHER DAY gabapentin 600 mg PO BID Grab bar 18 inch chrome grab bar insulin glargine 54 units (0.54 mL) subcut BEDTIME insulin lispro (Humalog KwikPen (U-100) Insulin) 6 units for glucose 100-160, 10 units for >160 tid q AC; lorazepam 0.5 mg PO DAILY PRN metformin ER 1,000 mg (2 x 500 mg) PO BID Mounjaro (tirzepatide) 15 mg (0.5 mL) subcut QWEEK NS nystatin 1 appl topical DAILY olmesartan 5 mg PO DAILY omeprazole 20 mg PO BID rosuvastatin (Crestor) 40 mg PO DAILY [Tub transfer bar Tub transfer bar] Tobacco use date assessed: 03/31/25 Fall risk assessment: No Falls in past year Last assessed Fall Risk: 03/31/25 Dental Screening Dental Screen Date: 09/24/24 HPI Pre op upper eyelid surgery 04/12/25 HPI Details Patient presents for the preop for bilateral upper blepharoplasty. Hypertension type 2 diabetes hyperlipidemia stable on current medications. [facility] Medical History (Updated 03/31/25 @ 09:15 by Josefa Giordano MD) Ptosis of both upper eyelids Cataract HTN (hypertension) Endometrial cancer Lower extremity weakness Annual physical exam Mammogram normal Hyperlipidemia Osteoarthritis Diabetic eye exam Gastritis Diabetes Surgical History S/P LIZET-BSO H/O colonoscopy Hx of cholecystectomy History of section History of total abdominal hysterectomy and bilateral salpingo-oophorectomy History of carpal tunnel surgery History of shoulder surgery History of tubal ligation Family History Father No problems noted. Mother No problems noted. Mother No problems noted. Sister Breast cancer Daughter No problems noted. Daughter No problems noted. Social History Housing: House Alcohol intake: never Patient Tobacco Use Status: Former Tobacco user e-Cigarette/Vaping Use: Never Used Second Hand Smoke Exposure: No service: No Current occupational status: retired Current occupational exposures/hazards: No Sexual orientation: Straight/Heterosexual Gender identity: Female Cognitive needs: No Hearing needs: No Vision needs: Yes Questionnaire Thrive Questionnaire Date Thrive assessed: 12/24/24 I am a: Patient What is your living situation today?: I have a steady place to live Within the past 12 months, did the food you bought not last and you didn't have the money to get more?: Never true Within the past 12 months, did you worry whether your food would run out before you got money to buy more?: Never true Do you have trouble paying for medicines?: No Do you have trouble getting transportation to medical appointments?: No Do you have trouble paying your heating and electricity bill?: No Do you have trouble taking care of your child, family member or friend?: Yes Do you have trouble with day-to-day activities such as bathing, preparing meals, shopping, managing finances, etc.?: I choose not to answer this question Are you currently unemployed and looking for a job?: I choose not to answer this question Are you interested in more education?: No Please select the resources that you would like help with: None Currently or been in a relationship where the following occur: No concerns reported THRIVE Score: 0 TYREL-7 AMB Questionnaire TYREL-7 Date TYREL - 7 assessed: 12/24/24 Source: Developed by Drs. Jacob Ashton, Brook Sheets, Pasquale Ren and colleagues, with an educational tania from [employer]. Review of Systems Const All systems reviewed & are unremarkable except as noted in HPI and below ENT Reports no additional complaints Card Reports no additional complaints Resp Reports no additional complaints GI Reports no additional complaints Reports no additional complaints Physical exam (Primary Care) Vital Signs: Last Vital Signs Temp 98.4 F 03/31/25 08:36 Pulse 92 03/31/25 08:36 Resp 18 03/31/25 08:36 BP 120/66 03/31/25 08:36 Pulse Ox 97 03/31/25 08:36 Oxygen Delivery Method Room Air 03/31/25 08:36 BMI result Body Mass Index 43.2 Tobacco/Smoking Status: Tobacco use Status Tobacco use date assessed 03/31/25 03/31/25 08:43 Patient Tobacco Use Status Former Tobacco user 03/31/25 08:35 e-Cigarette/Vaping Use Never Used 03/31/25 08:35 Thrive Assessment: Date of Thrive Assessment Date Thrive assessed 12/24/24 03/31/25 08:35 Currently or been in a relationship where the following occur: No concerns reported Const General: no acute distress HENMT Head: Yes normal to inspection Throat: Yes posterior oropharynx normal Eyes General: appearance normal, both eyes and all related structures Neck Neck: Yes supple Resp Effort & Inspection: normal respiratory effort Auscultation: clear to auscultation bilaterally Cardio Rhythm: regular rhythm Heart sounds: S1 normal heart sound present and S2 normal heart sound present GI Inspection: Yes normal to inspection Palpation (GI): Soft to palpation Coding Level of Care Code Est Pt Level 4 (69007) Diagnoses HTN (hypertension) I10 Hyperlipidemia E78.5 Diabetes E11.9 Ptosis of both upper eyelids H02.403 Assessment & Plan Assessment & Plan (1) HTN (hypertension): Code(s): I10 - Essential (primary) hypertension Category: Medical Plan: Continue medications (2) Hyperlipidemia: Code(s): E78.5 - Hyperlipidemia, unspecified Category: Medical Plan: Continue statin (3) Diabetes: Comment: IDDM, A1c 7.4 05/30, Code(s): E11.9 - Type 2 diabetes mellitus without complications Category: Medical Plan: Check A1c today continue ADA diet regular physical activity current medications follow-up in 3 months with a fasting labs before (4) Ptosis of both upper eyelids: Code(s): H02.403 - Unspecified ptosis of bilateral eyelids Category: Medical Plan: Patient is medically cleared for bilateral blepharoplasty Orders: Orders Comprehensive [place]. Panel Fast 3 Months E11.9 - Type 2 diabetes mellitus without complications, E78.5 - Hyperlipidemia, unspecified, I10 - Essential (primary) hypertension Microalbumin, Random (w Creat) 3 Months E11.9 - Type 2 diabetes mellitus without complications, E78.5 - Hyperlipidemia, unspecified, I10 - Essential (primary) hypertension Complete Blood Count Auto Diff 3 Months E11.9 - Type 2 diabetes mellitus without complications, E78.5 - Hyperlipidemia, unspecified, I10 - Essential (primary) hypertension TSH reflex Free T4 3 Months E11.9 - Type 2 diabetes mellitus without complications, E78.5 - Hyperlipidemia, unspecified, I10 - Essential (primary) hypertension Vitamin D 25-OH (D2 and D3) 3 Months E11.9 - Type 2 diabetes mellitus without complications, E78.5 - Hyperlipidemia, unspecified, I10 - Essential (primary) hypertension Hemoglobin A1c 3 Months E11.9 - Type 2 diabetes mellitus without complications, E78.5 - Hyperlipidemia, unspecified, I10 - Essential (primary) hypertension Lipid Panel 3 Months E11.9 - Type 2 diabetes mellitus without complications, E78.5 - Hyperlipidemia, unspecified, I10 - Essential (primary) hypertension
[2025-03-31 08:36] VITALS: BP 120/66; PULSE 92; RESP 18; TEMP 36.9; O2SAT 97; BMI 43.2
--- OUTSIDE RECORDS SUMMARY | 2025-03-31 09:05 | XMS_ITS ---
Author Name Leif NI Michelle Lisa Address [address] [place] [address] Phone [phone] Organization [facility] Care Team Providers Care Child Welfare Specialist Name Role Phone Michelle Yadav Unavailable [phone] Reason for Referral Not Available Allergies, adverse reactions, alerts Allergen Type Reaction Severity Status Onset Date Corinne (Diagnostic) Allergy to substance (disorder) analphylaxis Unknown [...] 20 mg Tab TAKE 1 TABLET BY [facility] EVERY OTHER DAY 2022-05-31 No [...] EVENING DIRECTED 2023-08-28 No Data Available Nystatin 317805 UNIT/GM Powder APPLY TOPICALLY EVERY DAY 2023-09-17 No Data Availa ble Nystatin 176131 UNIT/GM Powder apply to affected area BID [...] 0.5 mg Tab TAKE 1 TABLET BY [facility] EVERY DAY NEEDED FOR ANXIETY.TAKE [...] N/A Sees optho: Has a f/u with Plaster Applicator o 09/07/24. Other problems related to medical [...] (do not use for phone, instead use 74394-48) [facility] Type 2 diabetes [...] (do not use for phone, instead use 13837-27) [facility] New patient,40-59min; chronic exacerbation, 2 stable chronic or 1 acute illness add add modifier 95 for video (do not use for phone, instead use 66862-60) [facility] New patient,40-59min; chronic exacerbation, 2 stable chronic or 1 acute illness add add modifier 95 for video (do not use for phone, instead use 84276-31) [facility] New patient,40-59min; chronic exacerbation, 2 stable chronic or 1 acute illness add add modifier 95 for video (do not use for phone, instead use 89374-32) [facility] New patient,40-59min; chronic exacerbation, 2 stable chronic or 1 acute illness add add modifier 95 for video (do not use for phone, instead use 74553-12) [facility] New patient,40-59min; chronic exacerbation, 2 stable chronic or 1 acute illness add add modifier 95 for video (do not use for phone, instead use 48834-14) [facility] 08[place] New patient,40-59min; chronic exacerbation, 2 stable chronic or 1 acute illness add add modifier 95 for video (do not use for phone, instead use 92852-42) [facility] Estab. patient 30-39min; chronic exacerbation, 2 stable chronic or 1 acute illness add add modifier 95 for video, (do not use for phone, instead use 77324-12) [facility] 09[place]19/2023 Type 2 diabetes [...] (do not use for phone, instead use 52268-95) [facility]20[place] Estab. patient 30-39min; chronic exacerbation, 2 stable chronic or 1 acute illness add add modifier 95 for video, (do not use for phone, instead use 80362-26) [facility] 09[place]19/20[place] Estab. patient 30-39min; chronic exacerbation, 2 stable chronic or 1 acute illness add add modifier 95 for video, (do not use for phone, instead use 27850-35) [facility] 09[place]19/20[place] Estab. patient 30-39min; chronic exacerbation, 2 stable chronic or 1 acute illness add add modifier 95 for video, (do not use for phone, instead use 31966-27) [facility] ([place]) 09/19/2023 Estab. patient 30-39min; chronic exacerbation, 2 stable chronic or 1 acute illness add add modifier 95 for video, (do not use for phone, instead use 91818-39) [facility] [place] 09[place] Estab. patient 30-39min; chronic exacerbation, 2 stable chronic or 1 acute illness add add modifier 95 for video, (do not use for phone, instead use 99122-41) [facility]20[place] Estab. patient 30-39min; chronic exacerbation, 2 stable chronic or 1 acute illness add add modifier 95 for video, (do not use for phone, instead use 82778-96) [facility] 09[place]19/20[place] Estab. patient 30-39min; chronic exacerbation, 2 stable chronic or 1 acute illness add add modifier 95 for video, (do not use for phone, instead use 62780-43) [facility] [place] 09[place]19/20[place] Estab. patient 20-29min; 1 stable chronic or 2 minor; add add modifier 95 for video, modifier 93 for phone [facility] [place] 09[place]06/2024 Type 2 diabetes [...] 95 for video, modifier 93 for phone [facility] [place] 09/06/20[place] Estab. patient 20-29min; 1 stable chronic or 2 minor; add add modifier 95 for video, modifier 93 for phone [facility], ([place]) 09/06/2024 Estab. patient 20-29min; 1 stable chronic or 2 minor; add add modifier 95 for video, modifier 93 for [facility], ([place] 09/06/2024 Estab. patient 20-29min; 1 stable chronic or 2 minor; add add modifier 95 for video, modifier 93 for [facility] 09/06/2024 Estab. patient 20-29min; 1 stable chronic or 2 minor; add add modifier 95 for video, modifier 93 for phone [facility] [place] 09/06/20[place] Estab. patient 20-29min; 1 stable chronic or 2 minor; add add modifier 95 for video, modifier 93 for phone [facility] [place] 09/06/2024 Estab. patient 20-29min; 1 stable chronic or 2 minor; add add modifier 95 for video, modifier 93 for phone [facility] [place] 09/06/20[place] Estab. patient 20-29min; 1 stable chronic or 2 minor; add add modifier 95 for video, modifier 93 for phone [facility] [place] 09/06/2024 Vital Signs Date [...] tive Time Current Smoking Status Never smoker 2025-03-08 7 Sex Female History of Procedures Procedures Service Procedure code Service date Servicing provider Phone# New patient,40-59min; chronic exacerbation, 2 stable chronic or 1 acute illness add add modifier 95 for video (do not use for phone, instead use 29237-22) [id number] 2022-08-28 No Data Available No Data Availa [...] (do not use for phone, instead use 05545-50) [id number] 2023-09-19 No Data Available No Data Availa [...] 95 for video, modifier 93 for phone 17227 2024-09-06 No Data Available No Data Availa [...] documented (1160F)Continue to see PCP. [facility] or [facility] [...] next month.Sees optho09/06/24: Has a f/u with Plaster Applicator o 09/07/24.DIABETES CONTINGENCY PLANLast updated: 09/06/2024Member to [...] okDo you have a Durable Power of Hotel Controller for Healthcare, or Healthcare Proxy Or Guardianship? Yes, POAIf so, Who? Jay King, daughters Theresa and Rosalia King.Do you have a written Advance Directive? Has no formal documentationOther details of discussion: Discussed with memberToday's plan: Encouraged to visit [employer]F : AD or surrogate was documented in the medical record. 2024-09-06 Most recent hospital stay(s) or ER visit(s) and precipitating factors: Denies 2024-09-06 Open HEDIS Measure ramy choe: Reviewed
--- OUTSIDE RECORDS SUMMARY | 2025-03-31 09:05 | XMS_ITS | Clinical Summary ---
Author Organization [facility] Address [address] [place] [phone] Phone Care Team Providers Care Animal [facility] Clerk Name Role Phone Raul Silva MD Primary Care Provider + [phone] Surgical History Surgery Date Site/Laterality Comments OTHER SURGICAL HISTORY PROCEDURE: LA CORACOACROMIAL LIGAMENT RELEAS W/WOACROMIOPLASTY CHOLECYSTECTOMY PROCEDURE: LAPAROSCOPY, CHOLECYSTECTOMY CARPAL TUNNEL RELEASE PROCEDURE: HISTORICAL CARPAL TUNNEL REL; COMMENT: L SECTION 1975 PROCEDURE: HISTORICAL DELIVERY SECTION 1974 PROCEDURE: HISTORICAL DELIVERY HYSTERECTOMY 08/19/13 PROCEDURE: HISTORICAL TOTAL HYSTERECTOMY WITH BSO; COMMENT: Dr. Trejo, for endometrial ca. 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 Trejo) [...] PM EST [facility]oint[facility] [address] [address] Health Maintenance Due Date Last [...] 06/13/2022 Depression Screening 07/07/2024 COVID-19 Vaccine () 03/07/2025 05/11/2024, 05/15/2023, 05/09/2022, Additional history exists Influenza [...] For Mammography at [facility], [address] [place] [address], [id number], . -------- FINAL REPORT -------- Dictated By: Jasmyn Martinez Dictated Date: 05/31/2024 11:11 ET Assigned Physician: Jasmyn Martinez Reviewed and Electronically Signed By: Jasmyn Martinez Signed Date: 05/31/2024 11:12 ET Workstation ID: [id number] Transcribed By: Self Edit Transcribed Date: 05/31/2024 11:11 ET Narrative 05/31/2024 11:12 AM EST HISTORY: Screening. Sister had breast carcinoma in her 50's. COMPARISON: 06/02/23, 05/27/23, 05/24/22, 05/22/21 TECHNIQUE: Bilateral digital breast tomosynthesis was performed in the CC and MLO projections. Computer aided detection with [employer] AI 3D 3.1 was employed. BREAST DENSITY: [...] For Mammography at [facility], [address] [place] [address], [id number], . -------- FINAL REPORT -------- Dictated By: Jasmyn Martinez Dictated Date: 05/31/2024 11:11 ET Assigned Physician: Jasmyn Martinez Reviewed and Electronically Signed By: Jasmyn Martinez Signed Date: 05/31/2024 11:12 ET Workstation ID: [id number] Transcribed By: Self Edit Transcribed Date: 05/31/2024 11:11 ET us Self Referral Sppl IMG BI PROCEDURES Final Resul t from Last 3 Months or Most Recently Relevant to Health Maintenance Insurance MEDICAID - [place] [employer] MEDICARE Care Teams Animal Hospital Clerk Relationship Specialty Start Date End Date Raul Silva MD [address] PCP - General Pediatrics 05/21/13
--- OUTSIDE RECORDS SUMMARY | 2025-03-31 09:06 | XMS_ITS | Patient Health Record ---
Author Organization [facility] Address [address] [place] [address] Care Team Providers Care Deli Associate Name Role Phone Josefa Giordano MD Primary Care Provider Sandee Ordaz Unavailable [phone] Allergies Allergen (clinical drug ingredient) Drug/Non Drug Allergy documented on EMR Reaction Allergy Type Onset Date Status apple allergenic extract Apple (Diagnostic) Unknown Drug Allergy Active Results Component Value Reference Range Notes HEMOGLOBIN A1C (GLYCOHEMOGLO BIN) Reviewed date:12/13/2024 02:16:06 PM Interpretation: Performing Lab: Notes/Report: HEMOGLOBIN A1C % (HH) 7.0 Reason For Referral No Information Medications Medication SIG (Take, Route, Frequency, Duration) Notes Start Date End Date Status Docusate Sodium 100 MG 1 capsule as need ed Orally Once a day; Duration: 30 day(s) Active Extra Depth Orthopedic Shoes (1 Pair) with Customized Heat Molded Multidensity Innersoles (3 Pair) as directed Dx: NIDDM/Polyneuropathy (E11.42), Hammertoe Foot Deformity (M20.41,M20.42), Preulcerative Skin Lesion(s) (L85.1 07/23/2024 Active Gabapentin 100 MG 1 capsule Orally Onc e a day; Duration: 30 day(s) Active Night Splint AFO - L1930 as directed Not-Taking Insulin Lispro Activ e Physical Therapy . . . 2-3x/week; Durat ion: 3-4 weeks Not-Taking Lantus SoloStar Acti ve Extra Depth Diabetic Shoes with 3 Pair Custom heat-molded multi-density innersoles for 1 year Dx: N ot-Taking metFORMIN HCl 1000 MG 1 tablet with a me al Orally Once a day; Duration: 30 day(s) Active Trulicity 0.75 MG/0.5ML as directed Subcutaneous Not-Taking metroNIDAZOLE 0.75 % 1 application Exter shaniqua Twice a day Active Extra Depth Diabetic Shoes with 3 Pair Custom heat-molded multi-density innersoles for 1 year Dx: 03/23/2024 N ot-Taking Olmesartan Medoxomil 5 MG 1 tablet Orally Once a day; Duration: 30 day(s) Active Acetaminophen Extra Strength 500 MG 1 tablet as needed Orally every 6 hrs Active Voltaren 1 % as directed Externally Not-Taking Lugoff 3 Active Lidoderm 5 % 1 patch remove after 12 hours Externally Once a day; Duration: 30 days 03/23/2024 Not-Takin g Atorvastatin Calcium 80 MG 1 tablet Orally Once a day; Duration: 30 day(s) Active Omeprazole 20 MG 1 capsule 30 minutes before morning meal Orally Once a day; Duration: 30 day(s) Active Calcium Active Refresh Active Cetirizine HCl 10 MG 1 tablet Orally Onc e a day; Duration: 30 day(s) Active Vitamin D Active Immunizations Vaccine Route Administration Date Status Comme nts Influenza Unknown 04/19/2024 Administered Social History Tobacco Use: Social History Observation [...] Additional Findings: Tobacco non-user Current no nsmoker AUDIT-C (Standard) Question Answer Notes Did you have a drink containing alcohol in the p ast year? No Points 0 Interpretation Negative Problems Problem Type SNOMED Code ICD Code Onset Dates Problem Status W/U Status Risk Notes Problem Acquired hammer toe of right foot (4213119721462142 ) Other hammer toe(s) (acquired), right foot (M20.41) Active confirmed Problem Acquired hammer toe of left foot (3392877142850576 ) Other hammer toe(s) (acquired), left foot (M20.42) Active confirmed Problem Polyneuropathy due to type 2 diabetes mellitus (615882923) Type 2 diabetes mellitus with diabetic polyneuropathy (E11.42) Active confirmed Vital Signs Heart Rate 80 /min 12/10/2024 Blood pressure diastolic 65 mm Hg 03/18/2025 Height 4ft in 03/18/2025 Blood pressure systolic 128 mm Hg 03/18/2025 Weight 220 lbs 03/18/2025 BMI 67.13 kg/m2 03/18/2025 Procedures Procedure Date Ordered Date Performed Result Body Sit e 28294-TXJRYSI NAIL, 6 OR MORE 07/23/2024 N/A 94259-DBFX SKIN LESIONS, OVER 4 07/23/2024 N/A Encounters Encounter Location Date Provider Diagnosis [address] [address] 07/23/2024 Sandee Chen Other hammer toe(s) (acquired), right foot M20.41 ; Other hammer toe(s) (acquired), left foot M20.42 ; Type 2 diabetes mellitus with diabetic polyneuropathy E11.42 and Tinea unguium B35.[address] [address] 12/10/2024 Sandee Chen Type 2 diabetes mellitus with diabetic polyneuropathy E11.42 and Tinea unguium B35.[address] [address] 03/18/2025 Sandee Chen Type 2 diabetes mellitus with diabetic polyneuropathy E11.42 and Tinea unguium B35.[address] [address] 10/14/2024 Sandee Chen [address] [address] 11/03/2024 [place] [address] [address] 12/10/2024 Sandee Chen Assessments Encounter Date Diagnosis (ICD Code) Assessment Notes Treatment Notes Treatment Clinical Notes Section Notes 07/23/2024 Other hammer toe(s) (acquired), right foot (ICD-10 - M20.41) Patient Educated with: DIABETIC FOOT CARE INSTRUCTIONS. pdf (DIABETIC FOOT CARE INSTRUCTIONS. pdf) 07/23/2024 Other hammer toe(s) (acquired), left foot (ICD-10 - M20.42) 12/10/2024 Type 2 diabetes mellitus with diabetic polyneuropathy (ICD-10 - E11.42) 12/10/2024 Tinea unguium (ICD-10 - B35.1) 03/18/2025 Type 2 diabetes mellitus with diabetic polyneuropathy (ICD-10 - E11.42) 03/18/2025 Tinea unguium (ICD-10 - B35.1) 07/23/2024 Type 2 diabetes mellitus with diabetic polyneuropathy (ICD-10 - E11.42) 07/23/2024 Tinea unguium (ICD-10 - B35.1) Plan Of Treatment Pending Test Test Name Order Date X ray : Foot, left 3V 08/20/2022 X ray : Foot, right 3V 08/20/2022 95385-VIDKMOQ NAIL, 6 OR MORE 07/23/2024 81339-UFGK SKIN LESIONS, OVER 4 07/23/19 25 54849-FUUM SKIN LESIONS, 2 TO 4 10/12/19 23 Next Appt Details Provider Name:Sandee Rascon jennifer, 07/22/2025 12:30:00 PM, [address] [facility], [facility] [address], [place], [address], Insurance Providers Payer Name Payer Address Payer Phone Subscriber Number Group Number Insured Name Patient Relationship to Insured Coverage Start Date Coverage End Date [id number] [address] [address] [place] [address] [phone] [id number] Emily King Self - patient is the insured [employer] [address] [place] [address] [id number] Emily King Self - patient is the insured Medical (General) History Medical History History ICD Code Arthritis asthma Back,Hip,and Knee pain type II diabetes Fibromyalgia High blood pressure Surgical History Surgery Date(Month/Year) cataract removal 12/2021
--- OUTSIDE RECORDS SUMMARY | 2025-03-31 09:06 | XMS_ITS | Patient Health Record ---
Author Organization [facility] Address [address] [place] [address] Care Team Providers Care Editorial Manager Name Role Phone Josefa Giordano MD Primary Care Provider Jacob Kimble Unavailable [phone] Allergies No Known Allergies Reason For Referral [...] W/U Status Risk Notes Problem Esophageal reflux (047345589) Esophageal reflux (K21.9) Active confirmed Problem 717516247 Gastro-esophagea l reflux disease without esophagitis (K21.9) Active confirmed Problem 221401049 Encounter for screening for malignant neoplasm of colon (Z12.11) Active confirmed Problem Screening for malignant neoplasm of rectum (620813991) Encounter for screening for malignant neoplasm of rectum (Z12.12) Active confirmed Problem 606198017 Gastroesophageal reflux disease without esophagitis (K21.9) Active confirmed Problem 92787433 Preprocedural examination (Z01.818) Active confirmed Problem 555210882 Barretts esophag us without dysplasia (K22.70) Active confirmed Problem 720609803 Abdominal pain, left upper quadrant (R10.12) Active confirmed Problem 215667190 H/O long-term treatment with high-risk medication (Z92.29) Active confirmed Problem 630198342 Encounter for long-term use of non-steroidal anti-inflammatory medication (Z79.1) Active confirmed Problem 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 pylori infect ion (A04.8) Active confirmed Plan Of Treatment Pending Test Test Name Order Date Pathology 03/01/2022 Future Test Test Name Order Date UPPER GI ENDOSCOPY 05/26/2015 COLONOSCOPY 05/26/2015 UPPER GI ENDOSCOPY 11/12/2018 UPPER GI ENDOSCOPY 01/03/2022 Insurance Providers Payer Name Payer Address Payer Phone Subscriber Number Group Number Insured Name Patient Relationship to Insured Coverage Start Date Coverage End Date [facility] [address] [address] [place] [address] [phone] [id number] JANES BLAND Self - patient is the insured MEDICAID OF [facility] [address] [place] [id number] JANES BLAND Self - patient is the insured MEDICARE OF [place] [address] [place] [address] [id number] JANES BLAND Self - patient is the insured Medical (General) History Medical History History ICD Code IDDM Hypertension Hyperlipidemia Obesity GERD Fibromyalgia Sleep apnea--uses a CPAP machine Denies DC,CVA,Lung disease,renal disease Neg. colonoscopy in 05/2005 with [...]
== END 2025-03-31 09:09 | disposition home or self-care (01) ==
LOC: HO.HMCC 08:32
PROVIDERS: PCP Internal Medicine; Visit Provider Internal Medicine
DX: I10 Essential (primary) hypertension (principal); E78.5 Hyperlipidemia, unspecified; E11.9 Type 2 diabetes mellitus without complications; H02.403 Unspecified ptosis of bilateral eyelids